=== PATIENT | male | born 1950 | race Caucasian/White ===

== ENCOUNTER 2019-10-18 08:25 | Emergency (ER) | payer OTHER ==
--- OUTSIDE RECORDS SUMMARY | 2019-10-18 08:28 | XMS REPORT ---
:1950 [facility] Address [address] [place] [address] [address] Care Team Providers Name Role Phone LINK, CHANA SWANSON Unavailable Unavailable Problems This patient has no known problems. Allergies, Adverse Reactions, Alerts This patient has no known allergies or adverse reactions. Medications This patient has no known medications. Results Test Description Test Time Test Comments Text Results Atomic Results Result Comments CT, ABDOMEN 2018-11-25 12:33:00 FINAL REPORT TECHNIQUE: CT of the abdomen and pelvis WITHOUT and WITH intravenous contrast and WITHOUT oral contrast. Dose modulation, iterative reconstruction, and/or weight-based adjustment of the mA/kV was utilized to reduce the radiation dose to as low as reasonably achievable. INDICATION: D18.03. History of a resected. Aortic hemangioma and needs follow-up to exclude recurrence COMPARISON: Outside facility MRI from 03/03/2018. FINDINGS: LOWER THORAX: Moderate basilar subsegmental atelectasis. HEPATOBILIARY: No focal hepatic lesions. Gallbladder is unremarkable. No biliary ductal dilatation.SPLEEN: No splenomegaly.PANCREAS: No focal masses or ductal dilatation. ADRENALS: A right adrenal nodule measures 1.1 cm and less than 10 Hounsfield is, consistent with an adenoma. There is a focal left adrenal calcification which may be due to prior trauma or hemorrhage.KIDNEYS/URETERS: No hydronephrosis, stones, or masses. A lateral pole renal cyst measures 1 cm. Exophytic left lower pole hyperdense renal lesion does not enhance and measures 1.9 cm. This is most consistent with a hemorrhagic cystPELVIC ORGANS/BLADDER: Unremarkable. PERITONEUM/RETROPERITONEUM: No free air or fluid. There are staple lines in the retroperitoneum at the site of the prior hemangioma with some tethering of adjacent small bowel, likely due to scar. There is an area of nodularity adjacent to segment of the liver which measures 1.8 cm on axial image 40. This is unchanged from the prior MRI. This does not appear to enhance and could be an old hematoma. LYMPH NODES: No lymphadenopathy.VESSELS: Common origin of the celiac axis and superior mesenteric artery. GI TRACT: There is mild wall thickening and fat infiltration within the wall of the distal ileum. Mild diverticulosis of the sigmoid colon. BONES AND SOFT TISSUES: Posterior fusion of L4-L5 with a disc spacer and transverse screws. Mild degenerative changes of the visualized spine. IMPRESSION: 1.No recurrent disease at the site of prior hemangioma resection. 2.A right adrenal adenoma measures 1.1 cm. No further imaging is necessary. 3.The mild wall thickening of the distal ileum with some fatty infiltration may be from prior or chronic inflammation. 4.The previously seen left lower pole renal lesion is most consistent with a hemorrhagic cyst. Signed: Osman Green MDReport Verified Date/Time: 11/25/2018 12:33:17 Reading Location: [address] Reading Room -CREATININE 2018-11-25 10:33:00 Test Item Value Reference Range Comments POC-CREATININE (BEAKER) (test 0.9 mg/dL 0.6-1.3 TESTED AT [facility] 7200 [id number]) [facility] [id number] POC-EGFR (BEAKER) (test 83 mL/min/1.73M2 mmow=5259) MIBG, TUMOR LOCAL, WB, SINGLE [id number] 15:01:00Para aortic mass, suspicious of parargangliomaFINAL REPORT PROCEDURE: MIBG SCAN - Tumor Localization CPT CODE: 60699, 13775 INDICATION: Para-aortic mass, suspicious for paraganglioma PROTOCOL: 10.9 mCi of I- 123 MIBG was injected intravenously. Images were obtained approximately 19 hours after tracerinjection and included whole body and spot images as well as tomographic images of the abdomen and pelvis. FINDINGS: Increased tracer activity involving left adrenal that correlates with the 2.9cm periaortic mass seen on MRI 03/03/2018. There is also increased tracer activity involving the right adrenal however this is less intense than the adjacent liver and may represent normal adrenal medulla. Tracer distribution is otherwise physiological. IMPRESSION: Abnormal MIBG scan. 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 Signed: Diamond Mccollum Verified Date/Time: 05/01/2018 15:01:04 Reading Location: [address] Reading Room
[2019-10-18] MEDS ORDERED: HYDROCODONE/CHLORPHEN 5 ML/OSYR ONE (09:58)
[2019-10-18] MEDS ORDERED: NA CHLORIDE 0.9% 1,000 ML ONE ×2 (09:59→11:30)
[2019-10-18 10:21] LABS: Absolute Lymphocytes (CBC) 0.5 K/uL (0.7-4.9); Basophils % 0.2 % (0-1.3); Hematocrit 47.8 % (39.6-49.0); Lymphocytes % 6.6 % (15.3-44.8); MPV 9.8 fL (7.6-11.3); RBC Red Blood Cell Count 5.04 M/uL (4.33-5.43)
[2019-10-18 10:30] LABS: Protime INR 1.11
[2019-10-18 10:47] LABS: ALT/SGPT 32 U/L (12-78); AST/SGOT 44 U/L (15-37); Albumin 3.5 g/dL (3.4-5.0); Alkaline Phosphatase 79 U/L (45-117); BUN Blood Urea Nitrogen 14 mg/dL (7-18); Bicarbonate 30 mmol/L (21-32); Bilirubin Direct 0.3 mg/dL (0-0.2); Bilirubin Total 1.4 mg/dL (0.2-1.0); Glucose Level 129 mg/dL (74-106); Magnesium 1.8 mg/dL (1.8-2.4); NT PRO-BNP 210 pg/mL (<125); Potassium 3.5 mmol/L (3.5-5.1); Protein, Total 7.3 g/dL (6.4-8.2); Sodium Level 136 mmol/L (136-145); Troponin (Emerg Dept Use Only) < 0.02 ng/mL (0.0-0.045)
--- NOTE | 2019-10-18 12:16 | EDPHYS ---
Physician Documentation [facility] Name: Harrison Arriaza Age: 69 yrs Sex: Male : 1950 Arrival Date: 10/18/2019 Time: 08:27 Bed 4 Private MD: Eliel Hi H ED Physician Dg Tenorio HPI: 10/17 09:48 This 69 yrs old Male presents to ER via Ambulatory with complaints of Cough, pm1 Congestion, Fever. 09:48 The patient or guardian reports cough, with no sputum. Onset: The symptoms/episode pm1 began/occurred 2 day(s) ago. Severity of symptoms: in the emergency department the symptoms are unchanged. Modifying factors: The symptoms are alleviated by nothing, the symptoms are aggravated by Cough is worse with laying down. Associated signs and symptoms: Pertinent positives: subjective fever with sweating last night. The patient has not recently seen a physician. Historical: - Allergies: 09:03 No Known Allergies; iw - Home Meds: 09:03 glimepiride 4 mg Oral tab 1 tab once daily [Active]; amlodipine 10 mg tab 1 tab once iw daily [Active]; pioglitazone 45 mg oral tab 1 tab once daily [Active]; lisinopril-hydrochlorothiazide 10-12.5 mg oral tab 1 tab once daily [Active]; Lorazepam Oral [Active]; - PMHx: 09:03 Diabetes - NIDDM; Hypertension; iw - PSHx: 09:03 malignent mole removal; neck sx; back; aorta; iw - Immunization history:: Adult Immunizations up to date. - Social history:: Smoking status: Patient/guardian denies using tobacco, the patient reports quitting approximately 50 years ago. ROS: 09:48 ENT: Negative for injury, pain, and discharge, Neck: Negative for injury, pain, and pm1 swelling, Cardiovascular: Negative for chest pain, palpitations, and edema. 09:48 Abdomen/GI: Negative for abdominal pain, nausea, vomiting, diarrhea, and constipation, Back: Negative for injury and pain, MS/Extremity: Negative for injury and deformity, Skin: Negative for injury, rash, and discoloration. 09:48 Neuro: Negative for headache, weakness, numbness, tingling, and seizure. 09:48 Constitutional: Positive for fever, decreased PO intake for the past two days. 09:48 Respiratory: Positive for cough, Negative for shortness of breath, sputum production, wheezing. 09:48 All other systems are negative. Exam: 09:48 Constitutional: This is a well developed, well nourished patient who is awake, alert, pm1 and in no acute distress. Head/Face: Normocephalic, atraumatic. Eyes: Pupils equal round and reactive to light, extra-ocular motions intact. Lids and lashes normal. Conjunctiva and sclera are non-icteric and not injected. Cornea within normal limits. Periorbital areas with no swelling, redness, or edema. ENT: Nares patent. No nasal discharge, no septal abnormalities noted. Tympanic membranes are normal and external auditory canals are clear. Oropharynx with no redness, swelling, or masses, exudates, or evidence of obstruction, uvula midline. Mucous membranes moist. Neck: Trachea midline, no thyromegaly or masses palpated, and no cervical lymphadenopathy. Supple, full range of motion without nuchal rigidity, or vertebral point tenderness. No Meningismus. Chest/axilla: Normal chest wall appearance and motion. Nontender with no deformity. No lesions are appreciated. Cardiovascular: Regular rate and rhythm with a normal S1 and S2. No gallops, murmurs, or rubs. Normal PMI, no JVD. No pulse deficits. Respiratory: Lungs have equal breath sounds bilaterally, clear to auscultation and percussion. No rales, rhonchi or wheezes noted. No increased work of breathing, no retractions or nasal flaring. Abdomen/GI: Soft, non-tender, with normal bowel sounds. No distension or tympany. No guarding or rebound. No evidence of tenderness throughout. Back: No spinal tenderness. No costovertebral tenderness. Full range of motion. Skin: Warm, dry with normal turgor. Normal color with no rashes, no lesions, and no evidence of cellulitis. MS/ Extremity: Pulses equal, no cyanosis. Neurovascular intact. Full, normal range of motion. 09:48 Neuro: Orientation: is normal, Motor: is normal, moves all fours, Gait: is steady, at a normal pace, without difficulty. Vital Signs: 08:58 BP 98 / 80; Pulse 86; Resp 18 S; Temp 98.7; Pulse Ox 93% on R/A; Weight 95.25 kg; iw Height 5 ft. 10 in. (177.80 cm); Pain 8/10; 10:08 BP 124 / 71; Pulse 75; Resp 18 S; Temp 99.2(O); Pulse Ox 96% on R/A; aa5 11:25 BP 102 / 64; Pulse 77; Resp 20 S; Temp 99.2(O); Pulse Ox 95% on R/A; aa5 13:00 BP 140 / 78; Pulse 72; Resp 18 S; Pulse Ox 96% on R/A; aa5 08:58 Body Mass Index 30.13 (95.25 kg, 177.80 cm) iw MDM: 09:29 Patient medically screened. [facility] 11:45 Data reviewed: vital signs. Data interpreted: Pulse oximetry: on room air is 95 %. pm1 Interpretation: normal. 11:45 Counseling: I had a detailed discussion with the patient and/or guardian regarding: the pm1 historical points, exam findings, and any diagnostic results supporting the discharge/admit diagnosis, lab results, radiology results, the need for outpatient follow up, to return to the emergency department if symptoms worsen or persist or if there are any questions or concerns that arise at home. 10/17 09:35 Order name: Flu; Complete Time: 11:03 pm1 10/17 09:35 Order name: Basic Metabolic Panel; Complete Time: 11:03 pm1 10/17 09:35 Order name: CBC with Diff; Complete Time: 11:03 pm1 10/17 09:35 Order name: LFT's; Complete Time: 11:03 pm1 10/17 09:35 Order name: Magnesium; Complete Time: 11:03 pm1 10/17 09:35 Order name: NT PRO-BNP; Complete Time: 11:03 pm1 10/17 09:04 Order name: Chest Pa And Lat (2 Views) XRAY; Complete Time: 12:22 iw 10/17 09:35 Order name: PT-INR; Complete Time: 11:03 pm1 10/17 09:35 Order name: Troponin (emerg Dept Use Only); Complete Time: 11:03 pm1 10/17 09:35 Order name: Strep; Complete Time: 11:03 pm1 10/17 10:40 Order name: Throat Culture EDMS 10/17 09:35 Order name: EKG; Complete Time: 09:36 pm1 10/17 09:35 Order name: Cardiac monitoring; Complete Time: 10: pm1 10/17 09:35 Order name: EKG - Nurse/Tech; Complete Time: 10: pm1 10/17 09:35 Order name: IV Saline Lock; Complete Time: 10: pm1 10/17 09:35 Order name: Labs collected and sent; Complete Time: 10: pm1 10/17 09:35 Order name: O2 Per Protocol; Complete Time: 10: pm10/17 09:35 Order name: O2 Sat Monitoring; Complete Time: 10: pm1 Administered Medications: 10:05 Drug: Tussionex Pennkinetic ER 5 ml Route: PO; aa5 11:29 Follow up: Response: No adverse reaction aa5 10:07 Drug: NS 0.9% 1000 ml Route: IV; Rate: 1000 ml; Site: left antecubital; aa5 11:25 Follow up: IV Status: Completed infusion; IV Intake: 1000ml aa5 11:29 Follow up: IV Status: Completed infusion; IV Intake: 1000ml aa5 11:29 Drug: NS 0.9% 1000 ml Route: IV; Rate: 1000 ml; Site: left antecubital; aa5 13:00 Follow up: IV Status: Completed infusion; IV Intake: 1000ml aa5 Disposition: 18:18 Co-signature as Attending Physician, Dg Tenorio MD I agree with the assessment and rahel plan of care. Disposition: 10/18/19 12:14 Discharged to Home. Impression: Influenza due to identified novel influenza A virus. - Condition is Stable. - Discharge Instructions: Influenza, Adult. - Prescriptions for Tamiflu 75 mg Oral Capsule - take 1 tablet by ORAL route every 12 hours for 5 days; 10 tablet. Guaifenesin AC 10- 100 mg/5 mL Oral Liquid - take 10 milliliter by ORAL route every 4 hours As needed; 240 milliliter. - Medication Reconciliation Form, Thank You Letter, Antibiotic Education, Prescription Opioid Use form. - Follow up: Emergency Department; When: As needed; Reason: Worsening of condition. Follow up: Private Physician; When: 2 - 3 days; Reason: Recheck today's complaints, Continuance of care, Re-evaluation by your physician. - Problem is new. - Symptoms have improved. Signatures: Dispatcher [employer] EDDg Vasquez MD MD cha Williams, Irene, RN RN Delphine Brown RN RN aa5 Tyler Marie NP TRACTOR OPERATOR BATTERY pm1 Corrections: (The following items were deleted from the chart) 13:17 12:14 10/18/2019 12:14 Discharged to Home. Impression: Influenza due to identified iw novel influenza A virus. Condition is Stable. Discharge Instructions: Influenza, Adult. Prescriptions for Tamiflu 75 mg Oral Capsule - take 1 tablet by ORAL route every 12 hours for 5 days; 10 tablet, Guaifenesin AC 10-100 mg/5 mL Oral Liquid - take 10 milliliter by ORAL route every 4 hours As needed; 240 milliliter. and Forms are Medication Reconciliation Form, Thank You Letter, Antibiotic Education, Prescription Opioid Use. Follow up: Emergency Department; When: As needed; Reason: Worsening of condition. Follow up: Private Physician; When: 2 - 3 days; Reason: Recheck today's complaints, Continuance of care, Re-evaluation by your physician. Problem is new. Symptoms have improved. pm1
--- NOTE | 2019-10-18 12:16 | RAD REPORT ---
EXAM DESCRIPTION: RAD - Chest Pa And Lat (2 Views) - 10/18/2019 9:42 am CLINICAL HISTORY: COPD;Malaise Chest pain. COMPARISON: No comparisons FINDINGS: The lungs are clear. The heart is normal in size. No displaced fractures. IMPRESSION: No acute or concerning finding suspected.
--- NOTE | 2019-10-18 13:18 | ER ---
Nurse's Notes [facility] Name: Harrison Arriaza Age: 69 yrs Sex: Male : 1950 Arrival Date: 10/18/2019 Time: 08:27 Bed 4 Private MD: Eliel Hi H Diagnosis: Influenza due to identified novel influenza A virus Presentation: 10/17 08:58 Chief complaint: Patient states: cough for over a week, had prescription called in for iw cough medicine from Dr. Hi, has gotten worse , productive cough, felt feverish last night. Coronavirus screen: The patient has NOT traveled to [place] in the past 14 days. Proceed with normal triage procedures. Ebola Screen: Patient negative for fever greater than or equal to 101.5 degrees Fahrenheit, and additional compatible Ebola Virus Disease symptoms Patient denies exposure to infectious person. Patient denies travel to an Ebola-affected area in the 21 days before illness onset. No symptoms or risks identified at this time. Initial Sepsis Screen: Does the patient meet any 2 criteria? No. Patient's initial sepsis screen is negative. Does the patient have a suspected source of infection? No. Patient's initial sepsis screen is negative. Risk Assessment: Do you want to hurt yourself or someone else? Patient reports no desire to harm self or others. 08:58 Method Of Arrival: Ambulatory iw 08:58 Acuity: SHARAN 3 iw Historical: - Allergies: 09:03 No Known Allergies; iw - Home Meds: 09:03 glimepiride 4 mg Oral tab 1 tab once daily [Active]; amlodipine 10 mg tab 1 tab once iw daily [Active]; pioglitazone 45 mg oral tab 1 tab once daily [Active]; lisinopril-hydrochlorothiazide 10-12.5 mg oral tab 1 tab once daily [Active]; Lorazepam Oral [Active]; - PMHx: 09:03 Diabetes - NIDDM; Hypertension; iw - PSHx: 09:03 malignent mole removal; neck sx; back; aorta; iw - Immunization history:: Adult Immunizations up to date. - Social history:: Smoking status: Patient/guardian denies using tobacco, the patient reports quitting approximately 50 years ago. Screenin:00 Abuse screen: Denies threats or abuse. Nutritional screening: No deficits noted. aa5 Tuberculosis screening: No symptoms or risk factors identified. Fall Risk None identified. Assessment: 09:05 General: Appears uncomfortable, Behavior is calm, cooperative. Pain: Complains of pain aa5 in whole body with cough Pain does not radiate. Pain currently is 5 out of 10 on a pain scale. Quality of pain is described as aching, Is intermittent. Neuro: Level of Consciousness is awake, alert, obeys commands, Oriented to person, place, time, situation. Cardiovascular: Heart tones S1 S2 present Rhythm is regular. Respiratory: Reports cough that is productive, Airway is patent Respiratory effort is even, unlabored, Respiratory pattern is regular, symmetrical, Breath sounds are clear bilaterally. GI: Abdomen is round Bowel sounds present X 4 quads. Abd is soft and non tender X 4 quads. Patient currently denies nausea, vomiting. : No signs and/or symptoms were reported regarding the genitourinary system. EENT: Reports nasal congestion nasal discharge. Derm: Skin is pink, warm \\T\\ dry. Musculoskeletal: Range of motion: intact in all extremities. 10:00 Reassessment: Patient is alert, oriented x 3, equal unlabored respirations, skin aa5 warm/dry/pink. 11:25 Reassessment: Patient is alert, oriented x 3, equal unlabored respirations, skin aa5 warm/dry/pink. Pt sitting up in bed, pt states "I feel like my cough gets worse lying down" . 13:15 Reassessment: Patient is alert, oriented x 3, equal unlabored respirations, skin aa5 warm/dry/pink. Vital Signs: 08:58 BP 98 / 80; Pulse 86; Resp 18 S; Temp 98.7; Pulse Ox 93% on R/A; Weight 95.25 kg; iw Height 5 ft. 10 in. (177.80 cm); Pain 8/10; 10:08 BP 124 / 71; Pulse 75; Resp 18 S; Temp 99.2(O); Pulse Ox 96% on R/A; aa5 11:25 BP 102 / 64; Pulse 77; Resp 20 S; Temp 99.2(O); Pulse Ox 95% on R/A; aa5 13:00 BP 140 / 78; Pulse 72; Resp 18 S; Pulse Ox 96% on R/A; aa5 08:58 Body Mass Index 30.13 (95.25 kg, 177.80 cm) ED Course: 08:27 Patient arrived in ED. rg4 08:27 Eliel Hi DO is Private Physician. rg4 09:01 Triage completed. iw 09:03 Arm band placed on. iw 09:05 Patient has correct armband on for positive identification. Placed in gown. Bed in low aa5 position. Call light in reach. Side rails up X2. 09:28 Tyler Marie, NEENA is PHCP. pm1 09:28 Dg Tenorio MD is Attending Physician. pm1 09:39 Chest Pa And Lat (2 Views) XRAY In Process Unspecified. EDMS 09:50 Delphine Almonte, JOSE G is Primary Nurse. aa5 10:13 Initial lab(s) drawn, by me, sent to lab. EKG done, by ED staff, reviewed by Tyler Marie NP Flu and/or RSV swab sent to lab. Strep swab sent to lab. Inserted saline lock: 20 gauge in left antecubital area, using aseptic technique. Blood collected. 13:15 No provider procedures requiring assistance completed. IV discontinued, intact, aa5 bleeding controlled, No redness/swelling at site. Pressure dressing applied. Administered Medications: 10:05 Drug: Tussionex Pennkinetic ER 5 ml Route: PO; aa5 11:29 Follow up: Response: No adverse reaction aa5 10:07 Drug: NS 0.9% 1000 ml Route: IV; Rate: 1000 ml; Site: left antecubital; aa5 11:25 Follow up: IV Status: Completed infusion; IV Intake: 1000ml aa5 11:29 Follow up: IV Status: Completed infusion; IV Intake: 1000ml aa5 11:29 Drug: NS 0.9% 1000 ml Route: IV; Rate: 1000 ml; Site: left antecubital; aa5 13:00 Follow up: IV Status: Completed infusion; IV Intake: 1000ml aa5 Intake: 11:25 IV: 1000ml; Total: 1000ml. aa5 11:29 IV: 1000ml; Total: 2000ml. aa5 13:00 IV: 1000ml; Total: 3000ml. aa5 Outcome: 12:14 Discharge ordered by . pm1 13:15 Discharged to home ambulatory, with significant other. aa5 13:15 Condition: stable 13:15 Discharge instructions given to patient, Instructed on discharge instructions, follow up and referral plans. medication usage, Demonstrated understanding of instructions, follow-up care, medications, Prescriptions given X 2. 13:17 Patient left the ED. iw Signatures: Dispatcher [employer] ADEEL Matthias Juan jb1 Selina Mccrary, JOSE G RN Delphine Brown RN RN aa5 Tyler Marie, ASSOCIATE MERCHANDISE PLANNER ASSOCIATE MERCHANDISE PLANNER pm1 Shana Steve rg4 Corrections: (The following items were deleted from the chart) 10:13 10:07 Inserted saline lock: 20 gauge in left antecubital area, using aseptic technique. jb1 Blood collected. Inserted by JUAN Martinez aa5 10:13 10:07 Initial lab(s) drawn, by ED staff, sent to lab. aa5 jb1 18:12 10:00 Patient has correct armband on for positive identification. Placed in gown. Bed aa5 in low position. Call light in reach. Side rails up X2. aa5
[2019-10-18 13:27] VITALS: TEMP 99.2
[2019-10-18 13:29] VITALS: BP 102/64; O2SAT 95
--- NOTE | 2019-10-19 15:36 | EKG ---
Test Date: 2019-10-18 Test Time: 09:50:03 Forex Trader: KENIA MEASUREMENT RESULTS: Intervals: Rate: 75 CA: 152 QRSD: 86 QT: 378 QTc: 422 [place]: P: 71 CA: 152 QRS: 81 T: 68 INTERPRETIVE STATEMENTS: Normal sinus rhythm Normal ECG No previous ECG available for comparison Electronically Signed On 10-19-19 15:35:12 TEA BLENDER by Derek Wheeler
== END 2019-10-18 13:17 | disposition home or self-care (01) ==
LOC: ER 08:25
DX: J09.X9 Influenza due to identified novel influenza A virus with other manifestations (principal); I10 Essential (primary) hypertension; E11.9 Type 2 diabetes mellitus without complications
CPT/HCPCS: 96361; 93005; 87070; 85025; 80048; 36415; 83735; 85610; 80076; 87081; 84484; 83880; 87804 ×2; 71046; 96360; 99284; J7030 ×2

== ENCOUNTER 2020-08-26 13:24 | Emergency (ER) | payer OTHER ==
--- OUTSIDE RECORDS SUMMARY | 2020-08-26 13:26 | XMS REPORT | Continuity of Care Document ---
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 Family History Family Member Diagnosis Comments Start Date Stop Date Source Natural brother No Known Problems Jerome Lock Natural father Cirrhosis [facility] Natural mother Cancer [facility] Natural sister No Known Problems Edenilson Lock Social History Social Habit Start Date Stop Date Quantity Comments Source History of tobacco Current smoker Jerome carter use [facility] Sex Assigned At [place] [facility] Cigarettes smoked 2018-05-30 2018-05-30 [place] current (pack per 00:00:00 00:00:00 Method[facility] ) - Reported Cigarette 2018-05-30 2018-05-30 [place] pack-years 00:00:00 00:00:00 [facility] Tobacco use and 2018-05-30 2018-05-30 Current user [facility] exposure 00:00:00 00:00:00 [facility] Alcohol intake 2018-05-30 2018-05-30 Current drinker Jesus on 00:00:00 00:00:00 of alcohol [facility] (finding) Alcohol Comment 2016-02-03 2016-02-03 occasional [facility] 00:00:00 00:00:00 [facility] Smoking Status Start Date Stop Date Source Former smoker 2018-05-30 00:00:00 2018-05-30 00:00:00 Long [facility] Medications Ordered Filled Start Stop Current Ordering Indication Dosage Frequency Signature Comments Components Source Medication Medication Date Date Medication? Clinician (SIG) Name Name LORAZepam 2017-08 Yes 2mg QD Take 2 mg Edenilson ston (ATIVAN) 2 0-11 by mouth Metho di MG tablet 14:53: nightly. st 18 lisinopril- 2017-08 Yes 1{tbl} QD Take 1 [place] hydrochloro 0-11 tablet by Met hodi thiazide 14:53: mouth st (PRINZIDE,Z 18 every ESTORETIC) morning. 20-25 mg per tablet glimepiride 2017-08 Yes 4mg Q.5D Take 4 mg [place] (AMARYL) 4 0-11 by mouth 2 Met hodi MG tablet 14:53: (two) st 18 times a day. amLODIPine 2017-08 Yes 10mg QD Take 10 mg [place] (NORVASC) 0-11 by mouth Method i 10 MG 14:53: every st tablet 18 morning. Take the am of surgery pioglitazon 2017-08 Yes 45mg QD Take 45 mg [facility] e (ACTOS) 0-11 by mouth Method i 45 MG 14:53: daily. st tablet 18 omega 2017-08 Yes Take by Long 3-dha-epa-f 0-11 mouth. Method i darian oil 14:53: st (FISH OIL) 18 1,000 mg (120 mg-180 mg) capsule traZODone 2017-08 Yes 50mg QD Take 50 mg [place] (DESYREL) 0-11 by mouth Method i 50 MG 14:53: nightly. st tablet 18 multivitami 2017-08 Yes 1{tbl} QD Take 1 [place] n with 0-11 tablet by Methodi minerals 14:53: mouth st tablet 18 daily. Immunizations Ordered Immunization Filled Immunization Date Status Commen ts Source Name Name Pneumococcal 2018-05-29 Completed Long Conjugate 13-Valent 00:00:00 Meth[facility] dist Procedures This patient has no known procedures. Plan of Care Planned Activity Planned Date Details Comments Source Future Scheduled 2020-04-19 INFLUENZA VACCINE (#1) [facility] Test 00:00:00 [code = INFLUENZA Medical Ce nter VACCINE (#1)] Future Scheduled 2020-03-19 INFLUENZA VACCINE [place] [facility] Test 00:00:00 [code = INFLUENZA VACCINE] Future Scheduled 2019-05-29 65+ PNEUMOCOCCAL [facility] Test 00:00:00 VACCINE (2 of 2 - PPSV23) [code = 65+ PNEUMOCOCCAL VACCINE (2 of 2 - PPSV23)] Future Scheduled 2013-12-[address] [facility] - Test 00:00:00 WELLNESS (YEAR 2 or [facility] FIRST YEAR if no IPPE) [code = MEDICARE ANNUAL WELLNESS (YEAR 2 or FIRST YEAR if no IPPE)] Future Scheduled 2013-01-14 PNEUMOCOCCAL 65+ YRS [facility] - Test 00:00:00 (2 of 2 - PPSV23) Medical Ce nter [code = PNEUMOCOCCAL 65+ YRS (2 of 2 - PPSV23)] Future Scheduled 1998-01-14 COLONOSCOPY SCREENING [place] [facility] Test 00:00:00 [code = COLONOSCOPY SCREENING] Future Scheduled 1998-01-14 SHINGLES VACCINES (#1) [place] [facility] Test 00:00:00 [code = SHINGLES VACCINES (#1)] Future Scheduled 1964 COVID-19 VACCINE (#1) [place] [facility] Test 00:00:00 [code = COVID-19 VACCINE (#1)] Future Scheduled [address] [facility] - Test 00:00:00 malignant neoplasm of [facility] colon (procedure) [code = 946174129] Encounters Start End Encounter Admission Attending Care Care Encounter Source Date/Time Date/Time Type Type Clinicians Facility Department ID 2019-12-21 2019-12-21 Office Link, [facility] [id number] 23 14:26:35 15:45:13 Visit Oscar E AMBULATOR [id number] Y [id number] 300 Results Test Description Test Time Test Comments Results Result Sour e Comments CT, ABDOMEN 2018-11-25 FINAL REPORT PATIENT 12:33:00 ID: [id number] TECHNIQUE: CT of the abdomen and pelvis [...] may be due to prior trauma or hemorrhage.KIDNEYS/URE TERS: No hydronephrosis, stones, or masses. A lateral pole renal cyst measures 1 cm. Exophytic left lower pole hyperdense renal lesion does not enhance and measures 1.9 cm. This is most consistent with a hemorrhagic cystPELVIC ORGANS/BLADDER: Unremarkable. PERITONEUM/RETROPERITO NEUM: No free air or fluid. There are [...] be an old hematoma. LYMPH NODES: No lymphadenopathy.VESSEL S: Common origin of the celiac axis and [...] most consistent with a hemorrhagic cyst. Signed: Horn, Osman MDRmindiort Verified Date/Time: 11/25/2018 12:33:17 Reading Location: [facility] C013T [facility] Reading Room -CREATININE 2018-11-25 10:33:00 Test Item Value Reference Range Interpretation Comme nts POC-CREATININE (BEAKER) (test 0.9 mg/dL 0.6-1.3 TESTED AT [facility] 7200 code = 1859) DUNNELL BLDG A [facility] [id number] POC-EGFR (BEAKER) (test code = 83 mL/min/1.73M2 1860) MIBG, TUMOR LOCAL, WB, SINGLE [id number] 15:01:00Para aortic mass, suspicious of parargangliomaFINAL REPORT PROCEDURE: MIBG SCAN - Tumor Localization CPT CODE: 41676, 76771 INDICATION: Para-aortic mass, suspicious for paraganglioma PROTOCOL: 10.9 mCi of I-123 MIBG was injected intravenously. Images were obtained [...] normal adrenal medulla versus additionalneoplasm. Signed: Diamond Snyder MDReport Verified Date/Time: 05/01/2018 15:01:04 Reading Location: [address] [facility] Reading Room
--- OUTSIDE RECORDS SUMMARY | 2020-08-26 13:26 | XMS REPORT | Clinical Summary ---
:1950 Author Organization [facility] Address [address] [place] [address] Care Team Providers Name Role Phone Pcp, Primary Care Provider Unavailable Allergies No Known Allergies Medications Not on file Active Problems Not on file Social History Tobacco Use Types Packs/Day Years Used Date Never Assessed Sex Assigned at Date Recorded Not on file Last Filed Vital Signs Not on file Plan of Treatment Health Maintenance Due Date Last Done Comments COLON CANCER SCREENING COLONOSCOPY 1950 PNEUMOCOCCAL 65+ YRS (2 of 2 - PPSV23) 01/14/2013 8 MEDICARE ANNUAL WELLNESS (YEAR 2 or FIRST YEAR if no 12/18/2013 IPPE) INFLUENZA VACCINE (#1) 2020 Results Not on fileafter 08/26/2019 Insurance Payer Benefit Plan / Subscriber ID Effective Dates Phone Addre ss Type Group MEDICARE MEDICARE A B [id number] 2012-Present Medicare MCR GENERIC MEDICARE [id number] 2017-Present Medigap SUPPLEMENT/MACK SUPPLEMENT VIDUAL
--- OUTSIDE RECORDS SUMMARY | 2020-08-26 13:26 | XMS REPORT | Clinical Summary ---
:1950 Author Organization [facility] Address [address] [place] [address] Care Team Providers Name Role Phone Eleil Hi DO Primary Care Provider Allergies No Known Active Allergies Medications Medication Sig Dispensed Refills Start Date End Date Status LORAZepam (ATIVAN) 2 MG Take 2 mg by 0 Active tablet mouth nightly. lisinopril-hydrochlorot Take 1 tablet by 0 Active hiazide mouth every (PRINZIDE,ZESTORETIC) morning. 20-25 mg per tablet glimepiride (AMARYL) 4 Take 4 mg by 0 Active MG tablet mouth 2 (two) times a day. amLODIPine (NORVASC) 10 Take 10 mg by 0 Active MG tablet mouth every morning. Take the am of surgery pioglitazone (ACTOS) 45 Take 45 mg by 0 Active MG tablet mouth daily. omega 0-zyj-hye-fish Take by mouth. 0 Active oil (FISH OIL) 1,000 mg (120 mg-180 mg) capsule traZODone (DESYREL) 50 Take 50 mg by 0 Active MG tablet mouth nightly. multivitamin with Take 1 tablet by 0 Active minerals tablet mouth daily. 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 S/P lumbar fusion 10/16/2016 S/P lumbar laminectomy 02/09/2016 Immunizations Name Administration Dates Next Due Pneumococcal Conjugate 13-Valent 05/29/2018 Surgical History Surgery Date Site/Laterality Comments BACK SURGERY bone spur KIDNEY STONE SURGERY VASECTOMY MI 02/09/2016 Spine Lumbar/N/A Procedure: LUMB AR LAMINOTOMY LAMINEC/FACETECT/FORAMIN,BETSY L4-L 5; Surgeon: Jonathan RUIZ 1 ASA Saab MD; Loc ation: [facility]; Servic e: Neurosurgery FUSION, SPINE, LUMBAR, XLIF 10/16/2016 Spine Lumbar/N/A Pro cedure: EXTREME LATERAL INTERBODY FUSION W/ ALLOGRAFT L4-L5; Surgeon: Jonathan Saab MD; Loc ation: [facility]; Servic e: Neurosurgery; L aterality: N/A; Medical devices from this surgery are in t he Implants section. FUSION, SPINE, LUMBAR, 10/16/2016 Spine Lumbar/N/A Procedur e: . REDO LUMBAR POSTERIOR APPROACH LAMINOTOMY LE FT L4-L5. POSTERIOR LUMBAR FUSION W/ ALLOGRAFT AND AU TOGRAFT L4-L5. ; Surgeon: Kaci Saab MD; Location: [facility] OR; Service: Neurosu rgery; Laterality: N/A; Medical devices from this surgery are in t he Implants section. PROSTATECTOMY, 05/28/2018 N/A Procedure: ROBOT IC ASSISTED LAPAROSCOPIC, LAPAROSCOPIC EXC ISION OF PARA ROBOT-ASSISTED AORTIC MASS; Garcia rgeon: Oscar Oneill MD; Lo cation: [facility]; Servic e: Urology; Laterality: N/A; Medical devices from this surgery are in t he Implants section. Medical History Medical History Date Comments Hypertension Insomnia Diabetes mellitus (HCC) type 2 Blood in the stool 2014 instructed pt to inf orm pcp o fblood in the stool which star teodora last year Hernia, umbilical Anesthesia NHAP/NFHAP; denies c hest pain, SOB, or Dizziness Exercise involving golf and walking golf 3 times weekly and yard work; can climb course 2 flights of stairs w/o distress Kidney cysts Type 2 diabetes mellitus (HCC) Family History Medical History Relation Name Comments No Known Problems Brother Cirrhosis Father Cancer Mother No Known Problems Sister Relation Name Status Comments Brother Alive Father Mother cancer -lymph no de Sister Alive Social History Tobacco Use Types Packs/Day Years Used Date Former Smoker Cigarettes 0.5 10 Quit: 1975 Smokeless Tobacco: Current User Chew Alcohol Use Drinks/Week oz/Week Comments Yes 1 Standard drinks or equivalent 1.0 occasional Sex Assigned at Date Recorded Not on file Last Filed Vital Signs Not on file Plan of Treatment Health Maintenance Due Date Last Done Comments COVID-19 VACCINE (#1) 1966 COLONOSCOPY SCREENING 01/14/1998 SHINGLES VACCINES (#1) 01/14/1998 65+ PNEUMOCOCCAL VACCINE (2 of 2 - PPSV23) 05/29/201905/29 INFLUENZA VACCINE 03/19/2020 Implants Implanted Type Area Livestock Farmer Device Shelf Model / Identifier Expiration Serial / Lot Date Matrix Hmstc Floseal 10ml W/ Humn F2 - [id number] Human N/A: B AXTER 01/16/2018 [id number] / Implanted: Qty: 1 on 10/16/2016 by Jonathan Saab MD at [facility] Tissue N/A BIOSCIENCE / Implants [id number] Matrix Hmstc Floseal 10ml W/ Humn F2 - [id number] Human N/A: B AXTER 01/16/2018 [id number] / Implanted: Qty: 1 on 10/16/2016 by Jonathan Saab MD at [facility] Tissue N/A BIOSCIENCE / Implants [id number] Bone Matriz Osteocel Pro Small - [id number] - [id number] Human N/ A: NUVASIVE 02/12/2021 [id number] / Implanted: Qty: 1 on 10/16/2016 by Jonathan Saab MD at [facility] Tissue N/A [id number] / Implants [id number] Bone Matriz Osteocel Pro Small - [id number] - [id number] Human N/ A: NUVASIVE 02/28/2021 [id number] / Implanted: Qty: 1 on 10/16/2016 by Jonathan Saab MD at [facility] Tissue N/A [id number] / Implants [id number] Bone Matriz Osteocel Pro Medium - [id number] - [id number] Human N /A: NUVASIVE 05/08/2021 [id number] / Implanted: Qty: 1 on 10/16/2016 by Jonathan Saab MD at [facility] Tissue N/A [id number] / Implants [id number], Coroent Xlw 15 Degree - [id number] IPM IMPLANT N/A: NU VASIVE SPINE 09/19/2019 [id number] / Implanted: 10/16/2016 at [facility] (Quantity not on file) DEVICES N/A / [id number] Nit K-Wire Precept - [id number] IPM IMPLANT N/A: NUVASIVE SPINE 09/19/2019 [id number] / Implanted: 10/16/2016 at [facility] (Quantity not on file) DEVICES N/A / [id number] Relive Mas Mod Screw Shank - [id number] IPM IMPLANT N/A: NUVASIV E SPINE 09/19/2019 [id number] / Implanted: 10/16/2016 at [facility] (Quantity not on file) DEVICES N/A / [id number] Reline Mas Mod Screw Shank, 6.5 X 50 2c - [id number] IPM IMPLANT N/A: NUVASIVE SPINE 09/19/2019 [id number] / Implanted: 10/16/2016 at [facility] (Quantity not on file) DEVICES N/A / [id number] Screw Pdc Ti 6.5x55mm Melecio Polaxial Dbr3 - [id number] IPM IMPLANT N/A: NUVASIVE SPINE [id number] / Implanted: 10/16/2016 at [facility] (Quantity not on file) DEVICES N/A / Screw Pdc Ti 6.5x50mm Melecio Polaxial Dbr3 - [id number] IPM IMPLANT N/A: NUVASIVE SPINE [id number] / Implanted: 10/16/2016 at [facility] (Quantity not on file) DEVICES N/A / Surgical Access Module - [id number] IPM N/A: NUVASIVE SPINE 09/19/2019 [id number] / Implanted: Qty: 1 on 10/16/2016 by Jonathan Saab MD at [facility] SUPPLIES N/A / PATIENT [id number] NON-BILLABL E Nvm5 Tmap Activator & Electrode Kit - [id number] IPM N/A: NUVASIVE SPINE 09/19/2019 / Implanted: Qty: 1 on 10/16/2016 by Jonathan Saab MD at [facility] SUPPLIES N/A / PATIENT NA NON-BILLABL E Reline Consol Disposable - [id number] IPM N/A: NUVASIVE SPIN E 09/19/2019 [id number] / Implanted: 10/16/2016 at [facility] (Quantity not on file) SUPPLIES N/A / PATIENT NA NON-BILLABL E Andreia Tlif Hoop Mas Strl - [id number] Spinal N/A: NUVASIVE [id number] / Implanted: 10/16/2016 at [facility] (Quantity not on file) Implants N/A / Screw Spinal Lkng Posted Pedcl Sys For 6.25mm Jerry Spherx - [id number] Spinal N/A: NUVASIVE [id number] / Implanted: 10/16/2016 at [facility] (Quantity not on file) Implants N/A / Jerry Spinal Scr Tulip 6.25mm Spherx Pps - [id number] Spinal N/A: NUVASIVE [id number] / Implanted: Qty: 2 on 10/16/2016 by Jonathan Saab MD at [facility] Implants N/A / Jerry Spinal P-Bnt Dual Ball 27.5mm Spherx Dbr - [id number] Spinal N /A: NUVASIVE 09/19/2019 [id number] / Implanted: Qty: 1 on 10/16/2016 by Jonathan Saab MD at [facility] Implants N/A / [id number] Jerry Spinal P-Bnt Dual Ball 25mm Spherx Dbr - [id number] Spinal N/A : NUVASIVE 09/19/2019 [id number] / Implanted: Qty: 1 on 10/16/2016 by Jonathan Saab MD at [facility] Implants N/A / [id number] Kit Dil M5 Xlif - [id number] Spinal N/A: NUVASIVE [id number] / Implanted: 10/16/2016 at [facility] (Quantity not on file) Implants N/A / Clip Ligtng Hem-O-Greta Endoscpc Aplr Ply Lg - [id number] Surgic al N/A: WECK CLOSURE 01/20/2023 [id number] / Implanted: Qty: 4 on 05/28/2018 by Oscar Oneill M D at [facility] Implants; N/A SYSTEMS / Expanders; Extenders; Surgical Wires Kit Selnt Fibrin Humn Hmsts Surgy 5ml Evicel - [id number] Surgic al N/A: ETHICON US-EH 01/17/2019 [id number] / Implanted: Qty: 1 on 05/28/2018 by Oscar Oneill M D at [facility] Implants; N/A / Expanders; Extenders; Surgical Wires Results Not on fileafter 08/26/2019 Insurance Payer Benefit Plan / Subscriber ID Effective Phone Address T e Group Dates MEDICARE MEDICARE PART [id number] 2012-Connie Perales X Medicare A AND B nt STATE FARM INS STATE FARM INS [id number] 2014-Luis Commercial nt Advance Directives For more information, please contact: [phone] Type Date Recorded 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
[2020-08-26] MEDS ORDERED: HYDROCODONE/APAP 10/325 TAB ONE (14:42)
--- NOTE | 2020-08-26 15:11 | RAD REPORT ---
EXAM DESCRIPTION: CT - Spine Lumbar Wo Con - 08/26/2020 2:32 pm CLINICAL HISTORY: PAIN COMPARISON: CT lumbar spine January 2016, CT abdomen and pelvis January 2018 TECHNIQUE: Thin section axial imaging of the lumbar spine was performed. Sagittal and coronal recon struction images were generated and reviewed. All CT scans are performed using dose optimization technique as appropriate and may include automated exposure control or mA/KV adjustment according to patient size. FINDINGS: Lumbar bodies are normal in height and normal in alignment. No lytic, sclerotic or expansi le bony destructive process. Since the 2015 study pedicle screws and rods have been placed at the L4-5 level with graft material i n the disc space. This is well healed. No pedicle screw abnormality seen. Assessment of the disc leve l is difficult due to the spray artifact. No central spinal stenosis or significant foraminal encroac hment seen. No disc herniation seen. L5-S1 midline and left-sided disc bulge contacts but does not displace the S 1 nerve roots. Patient has advanced facet joint degenerative change at L5-S1. No paraspinal mass. No suspicious soft tissue finding. Central canal detail is inherently limited. IMPRESSION: No fracture or acute lumbar spine finding. L4-5 fusion changes at the disc level appear well healed. No disc herniation or central spinal stenosis seen. L5-S1 disc bulge contacts but does not displace t he S1 nerve roots.
--- NOTE | 2020-08-26 15:16 | RAD REPORT ---
EXAM DESCRIPTION: RAD - Ankle Right 3 View - 08/26/2020 2:46 pm CLINICAL HISTORY: PAIN, ankle pain COMPARISON: No comparisons FINDINGS: No fracture, dislocation or periosteal reaction. No joint effusion seen. Patient has very minimal spurring at the plantar and Achilles tendon attachments. Accessory ossicles are present along the inferior margin medial malleolus. Soft tissue swelling is present. Arterial tree calcifications seen. IMPRESSION: Mild soft tissue swelling with no acute bone abnormality.
--- NOTE | 2020-08-26 15:30 | ER ---
Nurse's Notes [facility] Name: Harrison Arriaza Age: 70 yrs Sex: Male : 1950 Arrival Date: 08/26/2020 Time: 13:26 Bed 23 Private MD: Eliel Hi H Diagnosis: Low back pain;Sprain of ankle;Abrasion of knee Presentation: 08/26 13:59 Chief complaint: Patient states: [place] [employer] [place]. ss C/o pain to R ankle, L knee and L lower back pain. Coronavirus screen: Client denies travel out of the [place] in the last 14 days. Ebola Screen: Patient denies exposure to infectious person. Patient denies travel to an Ebola-affected area in the 21 days before illness onset. Initial Sepsis Screen: Does the patient meet any 2 criteria? No. Patient's initial sepsis screen is negative. Does the patient have a suspected source of infection? No. Patient's initial sepsis screen is negative. Risk Assessment: Do you want to hurt yourself or someone else? Patient reports no desire to harm self or others. Onset of symptoms was August 26, 2020. 13:59 Method Of Arrival: Ambulatory ss 13:59 Acuity: SHARAN 3 ss Historical: - Allergies: 14:03 No Known Allergies; ss - PMHx: 14:03 Diabetes - NIDDM; Hypertension; ss - PSHx: 14:03 malignent mole removal; neck sx; aorta; back; ss - Immunization history:: Adult Immunizations up to date. - Social history:: Smoking status: Patient denies any tobacco usage or history of. Screenin:37 Abuse screen: Denies threats or abuse. Denies injuries from another. Nutritional zb screening: No deficits noted. Tuberculosis screening: No symptoms or risk factors identified. Fall Risk None identified. Assessment: 14:32 General: Appears in no apparent distress. uncomfortable, Behavior is calm, cooperative, zb appropriate for age. Pain: Complains of pain in left leg and left knee and right leg and anterior aspect of right ankle and left low back and lumbar area Pain does not radiate. Pain currently is 10 out of 10 on a pain scale. Pain began 2 hours ago. Is continuous, Alleviated by nothing. Neuro: Level of Consciousness is awake, alert, obeys commands, Oriented to person, place, time, situation. Cardiovascular: Capillary refill < 3 seconds in bilateral fingers Patient's skin is warm and dry. Respiratory: Reports shortness of breath at rest Airway is patent Respiratory effort is even, unlabored, Respiratory pattern is regular, symmetrical, Breath sounds are clear bilaterally. Crepitus is noted on left lateral posterior chest. GI: Abdomen is round non-distended. : No signs and/or symptoms were reported regarding the genitourinary system. EENT: No signs and/or symptoms were reported regarding the EENT system. Derm: abrasions on left knee area. Musculoskeletal: Circulation, motion, and sensation intact. Capillary refill < 3 seconds, in bilateral fingers. Range of motion: limited in right ankle Swelling present in right ankle. 15:30 Reassessment: Patient appears in no apparent distress at this time. Patient and/or zb family updated on plan of care and expected duration. Pain level reassessed. Patient is alert, oriented x 3, equal unlabored respirations, skin warm/dry/pink. no c/o at this time. pt given pain medication waiting medication to kick in. 16:00 Reassessment: pt states that pain medication has helped. 0/10 at the moment. given zb ankle air cast Patient denies pain at this time. Patient states symptoms have improved. Vital Signs: 14:03 BP 142 / 69; Pulse 80; Resp 18; Temp 97.8(TE); Pulse Ox 99% on R/A; Weight 95.25 kg; ss Height 5 ft. 10 in. (177.80 cm); Pain 10/10; 14:03 Body Mass Index 30.13 (95.25 kg, 177.80 cm) ED Course: 13:26 Patient arrived in ED. ag5 13:27 Eliel Hi DO is Private Physician. ag5 14:00 Triage completed. ss 14:03 Arm band placed on right wrist. ss 14:13 Opal Mcdonough FNP-C is PHCP. kb 14:13 Jose A Page MD is Attending Physician. kb 14:19 Fatmata Wagner, JOSE G is Primary Nurse. zb 14:32 CT Lumbar Spine Wo Con In Process Unspecified. EDMS 14:47 Ankle Right 3 View XRAY In Process Unspecified. EDMS 16:12 Patient has correct armband on for positive identification. health insurance specialist on. Pulse zb ox on. 16:12 No provider procedures requiring assistance completed. Patient did not have IV access zb during this emergency room visit. Administered Medications: 14:25 CANCELLED (Physician Discretion): [place] (7.5 mg-325 mg) 1 tabs PO once; RASS on ADMIN: kb Combtv4, Very Agttd3, Agttd2, Rstlss1, AlertClm0, Drwsy-1, Lt Sdtn-2, Mod Sdtn-3, Dp Sdtn-4, UnArsble-5 14:28 Drug: [place] 10 mg-325 mg 1 tabs {Note: RASS 0.} Route: PO; zb 16:00 Follow up: Response: No adverse reaction; Pain is decreased; RASS: Alert and Calm (0) zb 15:41 Drug: Lidocaine Solution (4%) 1 patches Route: Topical; Site: affected area; zb 16:00 Follow up: Response: No adverse reaction zb Outcome: 15:29 Discharge ordered by . kb 16:13 Discharged to home ambulatory. zb 16:13 Condition: stable 16:13 Discharge instructions given to patient, Instructed on discharge instructions, follow up and referral plans. medication usage, Demonstrated understanding of instructions, follow-up care, medications, Prescriptions given X 2. 16:13 Patient left the ED. zb Signatures: Dispatcher [employer] EDAZ Opal Mcdonough, SHANTI BAKERP-Grace Jacques RN RN Chucky Patel 5 Fatmata Wagner RN RN zb Corrections: (The following items were deleted from the chart) 14:29 14:28 [place] 10 mg-325 mg 1 tabs PO zb zb
--- NOTE | 2020-08-26 15:31 | EDPHYS ---
Physician Documentation [facility] Name: Harrison Arriaza Age: 70 yrs Sex: Male : 1950 Arrival Date: 08/26/2020 Time: 13:26 Bed 23 Private MD: Eliel Hi H ED Physician Jose A Page HPI: 08/26 14:25 This 70 yrs old Male presents to ER via Ambulatory with complaints of Fall kb Injury. 14:25 Associated injuries: The patient sustained injury to the low back, pain, pain with kb movement, tenderness, left knee, abrasion, anterior aspect of right ankle, decreased range of motion, painful injury, swelling. Severity of symptoms: At their worst the symptoms were moderate, in the emergency department the symptoms are unchanged. The patient has not experienced similar symptoms in the past. The patient has not recently seen a physician. 14:26 Details of fall: The patient fell from an upright position, while walking. Onset: The kb symptoms/episode began/occurred today, at 09:30. [place] loose one and fell. . Historical: - Allergies: 14:03 No Known Allergies; ss - PMHx: 14:03 Diabetes - NIDDM; Hypertension; ss - PSHx: 14:03 malignent mole removal; neck sx; aorta; back; ss - Immunization history:: Adult Immunizations up to date. - Social history:: Smoking status: Patient denies any tobacco usage or history of. ROS: 14:22 Constitutional: Negative for fever, chills, and weight loss, Cardiovascular: Negative kb for chest pain, palpitations, and edema, Respiratory: Negative for shortness of breath, cough, wheezing, and pleuritic chest pain, Abdomen/GI: Negative for abdominal pain, nausea, vomiting, diarrhea, and constipation, Neuro: Negative for headache, weakness, numbness, tingling, and seizure. 14:22 Back: Positive for pain at rest, pain with movement, of the lumbar area and left low back. 14:22 MS/extremity: Positive for decreased range of motion, pain, swelling, tenderness, of the anterior aspect of right ankle. 14:22 Skin: Positive for abrasion(s), of the left knee. Exam: 14:23 Constitutional: This is a well developed, well nourished patient who is awake, alert, kb and in no acute distress. Head/Face: Normocephalic, atraumatic. Chest/axilla: Normal chest wall appearance and motion. Nontender with no deformity. No lesions are appreciated. Cardiovascular: Regular rate and rhythm with a normal S1 and S2. No gallops, murmurs, or rubs. Normal PMI, no JVD. No pulse deficits. Respiratory: Lungs have equal breath sounds bilaterally, clear to auscultation and percussion. No rales, rhonchi or wheezes noted. No increased work of breathing, no retractions or nasal flaring. Abdomen/GI: Soft, non-tender, with normal bowel sounds. No distension or tympany. No guarding or rebound. No evidence of tenderness throughout. Neuro: Awake and alert, GCS 15, oriented to person, place, time, and situation. Cranial nerves II-XII grossly intact. Motor strength 5/5 in all extremities. Sensory grossly intact. Cerebellar exam normal. Normal gait. 14:23 Back: pain, that is moderate, of the lumbar area and left low back, ROM is painful, normal spinal alignment noted, CVA tenderness, is absent, vertebral tenderness, is appreciated at L3, L4 and L5. 14:23 Musculoskeletal/extremity: Extremities: grossly normal except: noted in the anterior aspect of right ankle: decreased ROM, pain, swelling, tenderness, ROM: limited active range of motion due to pain, in the anterior aspect of right ankle, Circulation is intact in all extremities. Sensation intact. Weight bearing: can bear weight with assistance only. 14:23 Skin: injury, abrasion(s), small abrasion noted, of the left knee. Vital Signs: 14:03 BP 142 / 69; Pulse 80; Resp 18; Temp 97.8(TE); Pulse Ox 99% on R/A; Weight 95.25 kg; ss Height 5 ft. 10 in. (177.80 cm); Pain 10/10; 14:03 Body Mass Index 30.13 (95.25 kg, 177.80 cm) ss MDM: 14:13 Patient medically screened. kb 14:22 Data reviewed: vital signs, nurses notes. Data interpreted: Pulse oximetry: on room air kb is 99 %. Interpretation: normal. 15:25 Counseling: I had a detailed discussion with the patient and/or guardian regarding: the kb historical points, exam findings, and any diagnostic results supporting the discharge/admit diagnosis, radiology results, the need for outpatient follow up, a family practitioner, to return to the emergency department if symptoms worsen or persist or if there are any questions or concerns that arise at home. 08/26 14:19 Order name: Ankle Right 3 View XRAY; Complete Time: 15:23 kb 08/26 14:19 Order name: CT Lumbar Spine Wo Con; Complete Time: 15:11 kb 08/26 15:30 Order name: Aircast Ankle Splint; Complete Time: 16:12 kb Administered Medications: 14:25 CANCELLED (Physician Discretion): [place]op[place] (7.5 mg-325 mg) 1 tabs PO once; RASS on ADMIN: kb Combtv4, Very Agttd3, Agttd2, Rstlss1, AlertClm0, Drwsy-1, Lt Sdtn-2, Mod Sdtn-3, Dp Sdtn-4, UnArsble-5 14:28 Drug: [place]op[place] 10 mg-325 mg 1 tabs {Note: RASS 0.} Route: PO; zb 16:00 Follow up: Response: No adverse reaction; Pain is decreased; RASS: Alert and Calm (0) zb 15:41 Drug: Lidocaine Solution (4%) 1 patches Route: Topical; Site: affected area; zb 16:00 Follow up: Response: No adverse reaction zb Disposition: 18:31 Co-signature as Attending Physician, Jose A Page MD. rn Disposition: 08/26/20 15:29 Discharged to Home. Impression: Low back pain, Sprain of ankle, Abrasion of knee. - Condition is Stable. - Discharge Instructions: Ankle Sprain, [id number], Back Pain, Adult, [id number]. - Prescriptions for Cyclobenzaprine 10 mg Oral Tablet - take 1 tablet by ORAL route every 8 hours As needed; 21 tablet. Diclofenac Sodium 75 mg Oral Tablet, Delayed Release (E.C.) - take 1 tablet by ORAL route 2 times per day As needed; 30 tablet. - Medication Reconciliation Form, Thank You Letter, Antibiotic Education, Prescription Opioid Use form. - Follow up: Emergency Department; When: As needed; Reason: Worsening of condition. Follow up: Private Physician; When: 2 - 3 days; Reason: Recheck today's complaints, Continuance of care, Re-evaluation by your physician. Signatures: Dispatcher [employer] Opal Gomes, MATEO-Pamela GALINDO-Jose A Pan MD MD rn Smirch, Shelby, RN RN ss Brown, Zipporah, RN RN zb Corrections: (The following items were deleted from the chart) 14:25 14:24 Hoop[place] (7.5 mg-325 mg) 1 tabs PO once; RASS on ADMIN: Combtv4, Very Agttd3, kb Agttd2, Rstlss1, AlertClm0, Drwsy-1, Lt Sdtn-2, Mod Sdtn-3, Dp Sdtn-4, UnArsble-5 ordered. kb 16:13 15:29 08/26/2020 15:29 Discharged to Home. Impression: Low back pain; Sprain of ankle; zb Abrasion of knee. Condition is Stable. Forms are Medication Reconciliation Form, Thank You Letter, Antibiotic Education, Prescription Opioid Use. Follow up: Emergency Department; When: As needed; Reason: Worsening of condition. Follow up: Private Physician; When: 2 - 3 days; Reason: Recheck today's complaints, Continuance of care, Re-evaluation by your physician. kb
[2020-08-26] MEDS ORDERED: LIDOCAINE 4% PATCH ONE (15:50)
== END 2020-08-26 16:13 | disposition home or self-care (01) ==
LOC: ER 13:24
DX: M54.5 Low back pain (principal); S80.212A Abrasion, left knee, initial encounter; S93.401A Sprain of unspecified ligament of right ankle, initial encounter; W01.0XXA Fall on same level from slipping, tripping and stumbling without subsequent striking against object, initial encounter; Y93.9 Activity, unspecified; Y92.832 Beach as the place of occurrence of the external cause
CPT/HCPCS: 72131; 99284

== ENCOUNTER 2022-02-17 04:33 | Inpatient (IN) | payer OTHER ==
[2022-02-17] MEDS ORDERED: ONDANSETRON 4 MG/2 ML VIAL ONE (05:35)
[2022-02-17] MEDS ORDERED: MORPHINE 4 MG/ML SYR ONE (05:35)
[2022-02-17] MEDS ORDERED: NA CHLORIDE 0.9% 1,000 ML ONE ×2 (05:36→06:44)
[2022-02-17] MEDS ORDERED: FAMOTIDINE 20 MG/2 ML VIAL IV ONE (05:37)
[2022-02-17 05:57] LABS: Absolute Lymphocytes (CBC) 0.9 K/uL (0.7-4.9); Hematocrit 51.4 % (39.6-49.0); Lymphocytes % 3.9 % (15.3-44.8); MPV 10.3 fL (7.6-11.3); RBC Red Blood Cell Count 5.47 M/uL (4.33-5.43)
[2022-02-17 06:17] LABS: Albumin 3.9 g/dL (3.4-5.0); Bilirubin Total 1.5 mg/dL (0.2-1.0); Protein, Total 8.1 g/dL (6.4-8.2)
[2022-02-17] MEDS ORDERED: PIPERACIL/TAZO 3.375 GM VIAL IV ONE (06:44)
[2022-02-17] MEDS ORDERED: NA CHLORIDE 0.9% 100 ML ONE (06:44)
[2022-02-17] MEDS ORDERED: MORPHINE 2 MG/ML SYR ONE (06:52)
[2022-02-17 06:55] LABS: Protime INR 1.04
[2022-02-17 07:09] LABS: Magnesium 1.7 mg/dL (1.8-2.4)
--- NOTE | 2022-02-17 07:26 | RAD REPORT ---
EXAM DESCRIPTION: CTAbdomen Pelvis W Contrast - 02/17/2022 7:06 am CLINICAL HISTORY: Abdominal pain, acute, nonlocalized COMPARISON: No comparisonsNo [id number] DIAG SOL BILAT W/CAD dated 13D DIAG SOL BILAT W/C AD dated 02/13/2021; [facility] BREAST TISSUE SAMPLE dated 04/04/20203D DIAG SOL BILAT W/CAD dated 02/13/2021; [facility] BREAST TISSUE SAMPLE dated 04/04/2020; [facility] BREAST NEEDLE LOCALIZATION dated 04/04/2020No comparison sChest Abdomen Pelvis W Cont dated 02/05/2018 TECHNIQUE: CT of the abdomen and pelvis was performed with contrast. All CT scans are performed using dose optimization technique as appropriate and may include automated exposure control or mA/KV adjustment according to patient size. FINDINGS: Lower chest: Scarring at the right lung base. Coronary artery calcifications. Small mild f luid in the distal esophagus . Liver: No acute abnormality or suspicious lesions. Biliary: No biliary ductal dilatation. Stomach: No significant focal abnormality. Duodenum: No significant focal abnormality. Pancreas: No significant abnormality. Spleen: No significant abnormality. Adrenal: No suspicious lesions. Kidney/ureter: No hydronephrosis. No renal calculi. Left upper pole renal cyst. Left lower pole renal lesion is too small to characterize. Retroperitoneum: No retroperitoneal adenopathy. Vascular: No aneurysm. Bowel: Small bowel obstruction with transition point in the right hemiabdomen. Small bowel measures o rodney 3 cm. Long segment thickening and mild hyperenhancement of the ileum. .. Diverticulosis. Peritoneum: No ascites or free air. Fat containing umbilical hernia. Fat containing inguinal hernias. Bladder: Grossly unremarkable. Reproductive: No adnexal masses. Bones: No acute fracture. L4-5 fusion . Other: n/a IMPRESSION: Small bowel obstruction with transition point in the right hemiabdomen. Long segment thi ckening of the ileum. The obstruction could be due to either adhesions or secondary to a stricture. N o obstructing mass. .
--- NOTE | 2022-02-17 07:33 | RAD REPORT ---
EXAM DESCRIPTION: RAD - Chest Single View - 02/17/2022 6:27 am CLINICAL HISTORY: ABDOMINAL DISTENTION COMPARISON: Chest Pa And Lat (2 Views) dated 10/18/2019 FINDINGS: Lines: None. Lungs: Linear opacities at the left lung base likely reflecting subsegmental atelectasis. Pleural: No significant pleural effusions or pneumothorax. Cardiac: The heart size is within normal limits. Bones: No acute fractures. Other: IMPRESSION: No acute cardiopulmonary disease.
[2022-02-17] MEDS ORDERED: Magnesium Sulfate 2gm IVPB 2 G/50 ML BAG IV ONE (07:43)
[2022-02-17 09:02] LABS: Blood Morphology Comment NOT SEEN (NOT SEEN); Platelet Estimate ADEQ; White Blood Cell Scan OK (OK)
--- NOTE | 2022-02-17 09:41 | EDPHYS ---
Physician Documentation [facility] Name: Harrison Arriaza Age: 72 yrs Sex: Male : 1950 Arrival Date: 02/17/2022 Time: 04:33 Bed 4 Private MD: Eliel Hi H ED Physician Salo Wu HPI: 02/17 06:26 This 72 yrs old Male presents to ER via Ambulatory with complaints of rahel Abdominal Pain, Nausea/Vomiting. 06:26 The patient presents to the emergency department with nausea, vomiting, Onset: The rahel symptoms/episode began/occurred 1 day(s) ago. Possible causes: unknown. The symptoms are aggravated by nothing. The symptoms are alleviated by nothing. Associated signs and symptoms: Pertinent positives: abdominal pain, nausea, vomiting. Severity of symptoms: At their worst the symptoms were moderate in the emergency department the symptoms are unchanged. The patient has not experienced similar symptoms in the past. Historical: - Allergies: 05:01 No Known Allergies; ll3 - PMHx: 05:01 Diabetes - NIDDM; Hypertension; ll3 - Immunization history:: Client reports receiving the 2nd dose of the Covid vaccine. - Social history:: Smoking status: Patient denies any tobacco usage or history of. ROS: 06:27 Constitutional: Negative for fever, chills, and weight loss, Eyes: Negative for injury, rahel pain, redness, and discharge, ENT: Negative for injury, pain, and discharge, Neck: Negative for injury, pain, and swelling, Cardiovascular: Negative for chest pain, palpitations, and edema, Respiratory: Negative for shortness of breath, cough, wheezing, and pleuritic chest pain, Back: Negative for injury and pain, : Negative for injury, bleeding, discharge, and swelling, MS/Extremity: Negative for injury and deformity, Skin: Negative for injury, rash, and discoloration, Neuro: Negative for headache, weakness, numbness, tingling, and seizure, Psych: Negative for depression, anxiety, suicide ideation, homicidal ideation, and hallucinations, Allergy/Immunology: Negative for hives, rash, and allergies, Endocrine: Negative for neck swelling, polydipsia, polyuria, polyphagia, and marked weight changes, Hematologic/Lymphatic: Negative for swollen nodes, abnormal bleeding, and unusual bruising. 06:27 Abdomen/GI: Positive for abdominal pain, nausea and vomiting, of the suprapubic area, right upper quadrant, left upper quadrant, right lower quadrant and left lower quadrant. Exam: 06:27 Constitutional: This is a well developed, well nourished patient who is awake, alert, rahel and in no acute distress. Head/Face: Normocephalic, atraumatic. Eyes: Pupils equal round and reactive to light, extra-ocular motions intact. Lids and lashes normal. Conjunctiva and sclera are non-icteric and not injected. Cornea within normal limits. Periorbital areas with no swelling, redness, or edema. ENT: Nares patent. No nasal discharge, no septal abnormalities noted. Tympanic membranes are normal and external auditory canals are clear. Oropharynx with no redness, swelling, or masses, exudates, or evidence of obstruction, uvula midline. Mucous membranes moist. Neck: Trachea midline, no thyromegaly or masses palpated, and no cervical lymphadenopathy. Supple, full range of motion without nuchal rigidity, or vertebral point tenderness. No Meningismus. Chest/axilla: Normal chest wall appearance and motion. Nontender with no deformity. No lesions are appreciated. Cardiovascular: Regular rate and rhythm with a normal S1 and S2. No gallops, murmurs, or rubs. Normal PMI, no JVD. No pulse deficits. Respiratory: Lungs have equal breath sounds bilaterally, clear to auscultation and percussion. No rales, rhonchi or wheezes noted. No increased work of breathing, no retractions or nasal flaring. Back: No spinal tenderness. No costovertebral tenderness. Full range of motion. Male : Normal genitalia with no discharge or lesions. Skin: Warm, dry with normal turgor. Normal color with no rashes, no lesions, and no evidence of cellulitis. MS/ Extremity: Pulses equal, no cyanosis. Neurovascular intact. Full, normal range of motion. Neuro: Awake and alert, GCS 15, oriented to person, place, time, and situation. Cranial nerves II-XII grossly intact. Motor strength 5/5 in all extremities. Sensory grossly intact. Cerebellar exam normal. Normal gait. Psych: Awake, alert, with orientation to person, place and time. Behavior, mood, and affect are within normal limits. 06:27 Abdomen/GI: Inspection: distension, that is moderate, Bowel sounds: hyperactive, Palpation: moderate abdominal tenderness, in all quadrants, Liver: no appreciated palpable abnormalities, Hernia: not appreciated. 11:05 ECG was reviewed by the Attending Physician. kdr Vital Signs: 04:57 BP 136 / 82; Pulse 106; Resp 18; Temp 98.2(O); Pulse Ox 95% on R/A; Weight 95.25 kg ll3 (R); Height 5 ft. 10 in. (177.80 cm) (R); Pain 10/10; 06:50 BP 137 / 69; Pulse 95; Resp 18; Pulse Ox 96% on R/A; lg3 07:15 BP 133 / 65; Pulse 96; Pulse Ox 94% on R/A; kr3 08:00 BP 135 / 70; Pulse 89; Pulse Ox 94% ; kr3 09:00 BP 133 / 68; Pulse 91; Pulse Ox 94% on R/A; kr3 10:00 BP 128 / 59; Pulse 83; Pulse Ox 94% ; kr3 11:08 BP 122 / 66; Pulse 76; Pulse Ox 95% on R/A; kr3 04:57 Body Mass Index 30.13 (95.25 kg, 177.80 cm) ll3 MDM: 05:26 Patient medically screened. rahel 06:29 Differential diagnosis: Nonspecific abd pain, pancreatitis, diverticulitis, viral rahel gastroenteritis, gastroenteritis. Data reviewed: vital signs, nurses notes, lab test result(s), EKG, radiologic studies, CT scan, plain films. Data interpreted: monitor and storage bin tender: rate is 106 beats/min, rhythm is regular, Pulse oximetry: on room air is 95 %. Test interpretation: by ED physician or midlevel provider: ECG, plain radiologic studies. Counseling: I had a detailed discussion with the patient and/or guardian regarding: the historical points, exam findings, and any diagnostic results supporting the discharge/admit diagnosis, lab results, radiology results, the need for further work-up and treatment in the hospital. 02/17 05:15 Order name: CBC with Diff; Complete Time: 09:17 lp1 02/17 05:15 Order name: CMP; Complete Time: 06:25 lp1 02/17 05:15 Order name: Lipase; Complete Time: 06:25 lp1 02/17 06:03 Order name: Magnesium; Complete Time: 07:24 rahel 02/17 06:03 Order name: NT PRO-BNP; Complete Time: 07:24 [facility] 02/17 06:03 Order name: PT-INR; Complete Time: 07:24 [facility] 02/17 06:03 Order name: Troponin HS; Complete Time: 07:24 [facility] 02/17 06:07 Order name: SARS-COV-2 RT PCR (Document "Date of Onset" if Symptomatic); Complete Time: [facility] 09:17 02/17 06:07 Order name: Lactate; Complete Time: 07:24 [facility] 02/17 09:03 Order name: CBC Smear Scan; Complete Time: 09:17 EDMS 02/17 10:40 Order name: CBC with Automated Diff EDMS 02/17 10:40 Order name: CBC with Automated Diff EDMS 02/17 10:40 Order name: Comprehensive Metabolic Panel EDMS 02/17 10:40 Order name: Comprehensive Metabolic Panel EDMS 02/17 06:03 Order name: XRAY Chest (1 view); Complete Time: 09:17 [facility] 02/17 06:09 Order name: CT Abd/Pelvis - IV Contrast Only [facility] 02/17 06:15 Order name: Abdomen ; Complete Time: 09:17 EDMS 02/17 10:40 Order name: Magnesium EDMS 02/17 10:40 Order name: Magnesium EDMS 02/17 10:40 Order name: Phosphorus EDMS 02/17 10:40 Order name: Phosphorus EDMS 02/17 10:41 Order name: Abdomen Acute Series EDMS 02/17 05:15 Order name: IV Saline Lock; Complete Time: 05:38 lp1 02/17 05:15 Order name: Labs collected and sent; Complete Time: 05:38 lp1 02/17 06:03 Order name: EKG; Complete Time: 06:04 [facility] 02/17 06:03 Order name: Cardiac monitoring; Complete Time: 09:33 [facility] 02/17 06:03 Order name: EKG - Nurse/Tech; Complete Time: 07:37 [facility] 02/17 06:03 Order name: O2 Per Protocol; Complete Time: 06:21 [facility] 02/17 06:03 Order name: O2 Sat Monitoring; Complete Time: 06:21 [facility] 02/17 10:40 Order name: CONS Physician Consult EDMS 02/17 10:40 Order name: NPO EDMS EC:05 Rate is 93 beats/min. Rhythm is regular, Normal Sinus Rhythm with No ectopy. QRS [place] kdr is Normal. AR interval is normal. QRS interval is normal. QT interval is normal. Clinical impression: Normal ECG. Administered Medications: 05:36 Not Given (Patient Refused): morphine 4 mg IVP once over 4 mins ll3 05:38 Not Given (Patient Refused): Zofran (Ondansetron) 4 mg IVP once; over 2 minutes ll3 05:47 Drug: NS 0.9% 1000 ml Route: IV; Rate: 1 bolus; Site: right antecubital; lg3 10:38 Follow up: Response: No adverse reaction; IV Status: Completed infusion; IV Intake: kr3 1000ml 05:47 Drug: Pepcid (famotidine) 20 mg Route: IVP; Site: right antecubital; lg3 05:49 Follow up: Response: No adverse reaction lg3 05:49 Drug: morphine 4 mg Route: IVP; Infused Over: 4 mins; Site: right antecubital; lg3 05:49 Follow up: Response: No adverse reaction lg3 05:49 Drug: Zofran (Ondansetron) 4 mg Route: IVP; Site: right antecubital; lg3 05:49 Follow up: Response: No adverse reaction lg3 06:43 Drug: Zosyn (piperacillin-tazobactam) 3.375 grams Route: IVPB; Infused Over: 60 mins; lg3 Site: right antecubital; 07:15 Follow up: Response: No adverse reaction; IV Status: Completed infusion; IV Intake: kr3 100ml 06:45 Drug: morphine 2 mg Route: IVP; Infused Over: 4 mins; Site: right antecubital; lg3 06:45 Follow up: Response: No adverse reaction lg3 06:50 Drug: NS 0.9% 1000 ml Route: IV; Rate: 125 ml/hr; Site: right antecubital; lg3 11:32 Follow up: Response: No adverse reaction; IV Status: Infusion continued upon admission; kr3 IV Intake: 600ml 07:39 Drug: Magnesium Sulfate 1 grams Route: IVPB; Infused Over: 1 hrs; Site: right [place] antecubital; 10:37 Follow up: Response: No adverse reaction; IV Status: Completed infusion; IV Intake: [id number] Disposition Summary: 02/17/22 09:39 Hospitalization Ordered Hospitalization Status: Inpatient Admission kdr Provider: Lakhwinder Jasmine Location: Telemetry/MedSurg (Inpatient) kdr Condition: Fair kdr Problem: new kdr Symptoms: have improved kdr Bed/Room Type: Standard kdr Room Assignment: 214(02/17/22 11:00) eb Diagnosis - Small bowel obstruction kdr Forms: - Medication Reconciliation Form kdr - SBAR form kdr Signatures: Dispatcher [employer] EDDg Vasquez MD MD cha Rittger, Kevin, MD MD kdr Pena, Laura, RN RN lp1 Adwoa Ng Lacie, RN RN lg3 Khalif Liu RN RN ll3 Niharika Dalal RN RN [place] Lyric Ennis RN kr3 Corrections: (The following items were deleted from the chart) 11:00 09:39 kdr eb
--- NOTE | 2022-02-17 09:41 | ER ---
Nurse's Notes [facility] Name: Harrison Arriaza Age: 72 yrs Sex: Male : 1950 Arrival Date: 02/17/2022 Time: 04:33 Bed 4 Private MD: Eliel Hi H Diagnosis: Small bowel obstruction Presentation: 02/17 04:57 Chief complaint: Patient states: C/o nausea, dry heaving since last night, and ll3 abdominal pain 10/10 since last night. Coronavirus screen: Vaccine status: Patient reports receiving the 2nd dose of the covid vaccine. nausea, vomiting. Ebola Screen: No symptoms or risks identified at this time. Initial Sepsis Screen: Does the patient meet any 2 criteria? HR > 90 bpm. No. Patient's initial sepsis screen is negative. Does the patient have a suspected source of infection? No. Patient's initial sepsis screen is negative. Risk Assessment: Do you want to hurt yourself or someone else? Patient reports no desire to harm self or others. Onset of symptoms was February 16, 2022 at 00:00. 04:57 Method Of Arrival: Ambulatory ll3 04:57 Acuity: SHARAN 3 ll3 Triage Assessment: 05:01 General: Appears ill, Behavior is calm, cooperative. Pain: Complains of pain in right ll3 upper quadrant Pain radiates to right lower quadrant and left lower quadrant Pain currently is 10 out of 10 on a pain scale. Pain began 4 hours ago. Is continuous. Neuro: Level of Consciousness is awake, alert, obeys commands, Oriented to person, place, time, situation. Respiratory: Respiratory effort is even, unlabored, Respiratory pattern is regular, symmetrical. GI: Abdomen is round non-distended, Stools are reported to be normal. Abd is soft X 4 quads Abd is non tender in right lower quadrant and left lower quadrant Abdomen is tender to palpation in right upper quadrant Reports nausea, vomiting, since 12 AM Patient currently denies diarrhea. Derm: Skin is pink, warm \\T\\ dry. Historical: - Allergies: 05:01 No Known Allergies; ll3 - PMHx: 05:01 Diabetes - NIDDM; Hypertension; ll3 - Immunization history:: Client reports receiving the 2nd dose of the Covid vaccine. - Social history:: Smoking status: Patient denies any tobacco usage or history of. Screenin:04 Abuse screen: Denies threats or abuse. Nutritional screening: No deficits noted. ll3 Tuberculosis screening: No symptoms or risk factors identified. 05:50 Fall Risk None identified. lg3 Assessment: 05:04 General: See triage assessment. GI: Bowel sounds present X 4 quads. ll3 05:50 General: Appears in no apparent distress. uncomfortable, Behavior is calm, cooperative. lg3 Pain: Complains of pain in epigastric area, right upper quadrant and left upper quadrant. Neuro: No deficits noted. Level of Consciousness is awake, alert, obeys commands, Oriented to person, place, time, situation. Cardiovascular: No deficits noted. Denies chest pain, shortness of breath, Capillary refill < 3 seconds Clubbing of nail beds is absent JVD is absent Patient's skin is warm and dry. Respiratory: No deficits noted. Airway is patent Trachea midline Respiratory effort is even, unlabored, Respiratory pattern is regular, symmetrical, Breath sounds are clear bilaterally. GI: Bowel sounds present X 4 quads. Abd is soft X 4 quads Abdomen is tender to palpation in right upper quadrant and left upper quadrant Reports upper abdominal pain, epigastric pain, indigestion, nausea, vomiting. : No deficits noted. No signs and/or symptoms were reported regarding the genitourinary system. EENT: No deficits noted. No signs and/or symptoms were reported regarding the EENT system. Derm: No deficits noted. No signs and/or symptoms reported regarding the dermatologic system. Skin is intact, is healthy with good turgor, Skin is dry, Skin temperature is warm. Musculoskeletal: No deficits noted. No signs and/or symptoms reported regarding the musculoskeletal system. Circulation, motion, and sensation intact. Range of motion: intact in all extremities. 06:50 Reassessment: Patient appears in no apparent distress at this time. No changes from lg3 previously documented assessment. Patient and/or family updated on plan of care and expected duration. Pain level reassessed. Patient is alert, oriented x 3, equal unlabored respirations, skin warm/dry/pink. 07:00 Reassessment: No changes from previously documented assessment. report received from ll1 line staker RN. 07:23 Reassessment: No changes from previously documented assessment. Patient and/or family ll1 updated on plan of care and expected duration. Pain level reassessed. Patient is alert, oriented x 3, equal unlabored respirations, skin warm/dry/pink. Patient states feeling better. Vital Signs: 04:57 BP 136 / 82; Pulse 106; Resp 18; Temp 98.2(O); Pulse Ox 95% on R/A; Weight 95.25 kg ll3 (R); Height 5 ft. 10 in. (177.80 cm) (R); Pain 10/10; 06:50 BP 137 / 69; Pulse 95; Resp 18; Pulse Ox 96% on R/A; lg3 07:15 BP 133 / 65; Pulse 96; Pulse Ox 94% on R/A; kr3 08:00 BP 135 / 70; Pulse 89; Pulse Ox 94% ; kr3 09:00 BP 133 / 68; Pulse 91; Pulse Ox 94% on R/A; kr3 10:00 BP 128 / 59; Pulse 83; Pulse Ox 94% ; kr3 11:08 BP 122 / 66; Pulse 76; Pulse Ox 95% on R/A; kr3 04:57 Body Mass Index 30.13 (95.25 kg, 177.80 cm) ll3 ED Course: 04:33 Patient arrived in ED. am2 04:34 Eliel Hi DO is Private Physician. am2 04:45 Khalif Liu, RN is Primary Nurse. ll3 05:01 Triage completed. ll3 05:01 Arm band placed on Patient placed in an exam room, on a stretcher, on pulse oximetry. ll3 05:05 Patient has correct armband on for positive identification. Bed in low position. Call ll3 light in reach. Side rails up X 1. 05:26 Dg Tenorio MD is Attending Physician. rahel 05:48 CBC with Diff Sent. lg3 05:48 CMP Sent. lg3 05:48 Lipase Sent. lg3 05:50 Client placed on continuous cardiac and pulse oximetry monitoring. NIBP monitoring lg3 applied. Door closed. Noise minimized. Warm blanket given. Family accompanied patient. 05:50 Inserted saline lock: 22 gauge in right antecubital area, using aseptic technique. lg3 Blood collected. 06:04 Notified ED physician of a critical lab result(s). WBC 23.4. lp1 06:30 XRAY Chest (1 view) In Process Unspecified. EDMS 06:31 SARS-COV-2 RT PCR (Document "Date of Onset" if Symptomatic) Sent. mh5 06:31 COVID swab sent to lab. mh5 06:35 Lactate Sent. lg3 06:50 Lactate Sent. lg3 06:50 Magnesium Sent. lg3 06:50 NT PRO-BNP Sent. lg3 06:50 PT-INR Sent. lg3 06:50 Troponin HS Sent. lg3 07:08 Abdomen In Process Unspecified. EDMS 07:36 EKG done, by ED staff, reviewed by Salo Wu MD. jw7 09:17 Attending Physician role handed off by Dg Tenorio MD kdr 09:17 Salo Wu MD is Attending Physician. kdr 09:37 Lakhwinder Jasmine MD is Hospitalizing Provider. kdr 10:32 No provider procedures requiring assistance completed. Patient admitted, IV remains in kr3 place. 10:57 NGT: inserted 16 Fr. via left nare. other not successful, difficulty breathing, kr3 coughing, removed immediately, pt refused second attempt. Patient tolerated poorly. Administered Medications: 05:36 Not Given (Patient Refused): morphine 4 mg IVP once over 4 mins ll3 05:38 Not Given (Patient Refused): Zofran (Ondansetron) 4 mg IVP once; over 2 minutes ll3 05:47 Drug: NS 0.9% 1000 ml Route: IV; Rate: 1 bolus; Site: right antecubital; lg3 10:38 Follow up: Response: No adverse reaction; IV Status: Completed infusion; IV Intake: kr3 1000ml 05:47 Drug: Pepcid (famotidine) 20 mg Route: IVP; Site: right antecubital; lg3 05:49 Follow up: Response: No adverse reaction lg3 05:49 Drug: morphine 4 mg Route: IVP; Infused Over: 4 mins; Site: right antecubital; lg3 05:49 Follow up: Response: No adverse reaction lg3 05:49 Drug: Zofran (Ondansetron) 4 mg Route: IVP; Site: right antecubital; lg3 05:49 Follow up: Response: No adverse reaction lg3 06:43 Drug: Zosyn (piperacillin-tazobactam) 3.375 grams Route: IVPB; Infused Over: 60 mins; lg3 Site: right antecubital; 07:15 Follow up: Response: No adverse reaction; IV Status: Completed infusion; IV Intake: kr3 100ml 06:45 Drug: morphine 2 mg Route: IVP; Infused Over: 4 mins; Site: right antecubital; lg3 06:45 Follow up: Response: No adverse reaction lg3 06:50 Drug: NS 0.9% 1000 ml Route: IV; Rate: 125 ml/hr; Site: right antecubital; lg3 11:32 Follow up: Response: No adverse reaction; IV Status: Infusion continued upon admission; kr3 IV Intake: 600ml 07:39 Drug: Magnesium Sulfate 1 grams Route: IVPB; Infused Over: 1 hrs; Site: right [place] antecubital; 10:37 Follow up: Response: No adverse reaction; IV Status: Completed infusion; IV Intake: [id number] Medication: 07:23 VIS not applicable for this client. ll1 Intake: 07:15 IV: 100ml; Total: 100ml. kr3 10:37 IV: 50ml; Total: 150ml. kr3 10:38 IV: 1000ml; Total: 1150ml. kr3 11:32 IV: 600ml; Total: 1750ml. kr3 Outcome: 09:39 Decision to Hospitalize by Provider. kdr 10:32 Condition: stable kr3 10:32 Instructed on the need for admit. 11:35 Admitted to Tele accompanied by tech, via wheelchair, room 214, with chart, Report kr3 called to Yadira Thomas RN 11:42 Patient left the ED. kr3 Signatures: Dispatcher [employer] EDMS Dg Tenorio MD MD cha Rittger, Kevin, MD MD kdr Pena, Laura, RN RN lp1 Sahara Gibbons 5 Anna Phoenix am2 Giovanna Farah RN RN lg3 Windy Brambila RN RN ll1 Khalif Liu RN RN ll3 Niharika Dalal RN RN ha Waits, Jodi 7 Lyric Ennis RN RN kr3
[2022-02-17] MEDS ORDERED: ONDANSETRON 4 MG/2 ML VIAL IV PRN (10:35)
[2022-02-17] MEDS ORDERED: HYDROMORPHONE HCL 1 MG/ML INJ IV PRN (10:35)
[2022-02-17] MEDS ORDERED: ACETAMINOPHEN 500 MG TAB PO PRN (10:35)
--- NOTE | 2022-02-17 10:44 | P.HP ---
Certification for Inpatient Patient admitted to: Inpatient With expected LOS: >2 Midnights Patient will require the following post-hospital care: None Practitioner: I am a practitioner with admitting privileges, knowledge of patient current condition, hospital course, and medical plan of care. Services: Services provided to patient in accordance with Admission requirements found in Title 42 Section 412.3 of the Code of Federal Regulations Patient History Date of Service: 02/17/22 Reason for admission: Small bowel obstruction History of Present Illness: Patient is a who presents to the emergency room with abdominal pain and intractable nausea and vomiting. Patient has been fairly healthy most of his life. 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 He has a umbilical hernia as well. Otherwise, he really does not take many medications. He has been doing well until Saturday when he started having abdominal pain and nausea and vomiting. It continued through the evening so he came into the emergency room Saturday morning. In the emergency room he had a CT scan of his abdomen pelvis performed which revealed a small bowel obstruction. It appeared patient had adhesions were a long stricture. Emergency room physician spoke to general surgery and they recommended NG tube suctioning and IV fluids. We will go ahead and admit the patient to the hospital for further evaluation. Allergies No Known Drug Allergies Allergy (Unverified 05/05/15 23:44) Unknown - Past Medical/Surgical History Past Medical History: Patient denies medical history -: Laparoscopic procedure to remove mass off the aorta - Family History Father Family History: Reviewed- Non-Contributory - Social History Smoking therapy provided: No Alcohol use: No CD- Drugs: No Review of Systems 10-point ROS is otherwise unremarkable Physical Examination - Vital Signs Temperature: 98 F Blood Pressure: 140/80 Pulse: 80 Respirations: 18 Pulse Ox (%): 95 - Physical Exam General: Alert, In no apparent distress, Oriented x3 HEENT: Atraumatic, PERRLA, Mucous membr. moist/pink, EOMI, Sclerae nonicteric Neck: Supple, 2+ carotid pulse no bruit, No LAD, Without JVD or thyroid abnormality Respiratory: Clear to auscultation bilaterally, Normal air movement Cardiovascular: Regular rate/rhythm, Normal S1 S2, No murmurs Gastrointestinal: Normal bowel sounds, Soft and benign, Distended, Tenderness, Rebound Musculoskeletal: No clubbing, No swelling, No tenderness Integumentary: No rashes Neurological: Normal gait, Normal speech, Normal strength at 5/5 x4 extr, Normal tone, Sensation intact, Cranial nerves 3-12 intact, Normal affect Lymphatics: No axilla or inguinal lymphadenopathy - Studies Laboratory Data (last 24 hrs) 02/17/22 06:33: PT 11.4, INR 1.04 02/17/22 06:33: Magnesium 1.7 L 02/17/22 05:45: Sodium 133 L, Potassium 4.0, BUN 16, Creatinine 1.21, Glucose 276 H, Total Bilirubin 1.5 H, AST 26, ALT 31, Alkaline Phosphatase 85, Lipase 55 L 02/17/22 05:45: WBC 23.4 H*, Hgb 17.8, Hct 51.4 H, Plt Count 238 Assessment & Plan - Problems (Diagnosis) (1) SBO (small bowel obstruction) Current Visit: Yes Status: Acute (2) DM2 (diabetes mellitus, type 2) Current Visit: Yes Status: Acute (3) HTN (hypertension) Current Visit: Yes Status: Acute - Plan Plan: 1. IV fluids 2. Pain control 3. NG tube to low intermittent wall suctioning 4. General surgery consultation 5. Antibiotic therapy 6. Antiemetics as needed 7. GI DVT prophylaxis Discharge Plan: Home Plan to discharge in: Greater than 2 days - Advance Directives Does patient have a Living Will: No Does patient have a Durable POA for Healthcare: No - Code Status/Comfort Care Code Status Assessed: Yes Code Status: Full Code Critical Care: No Time Spent Managing PTS Care (In Minutes): 45
[2022-02-17 11:40] VITALS: BMI 30.4
[2022-02-17] MEDS: NA CHLORIDE 0.9% 1,000 ML IV SCH ×2 (12:08→21:29)
[2022-02-17] MEDS: METRONIDAZOLE 500mg IVPB 500 MG/100 ML BAG IV SCH ×2 (12:11→17:27)
[2022-02-17 12:46] VITALS: O2SAT 95
--- NOTE | 2022-02-17 13:01 | RAD REPORT ---
EXAM DESCRIPTION: RAD - Abdomen Acute Series - 02/17/2022 12:21 pm CLINICAL HISTORY: SBO COMPARISON: Chest Single View dated 02/17/2022; Chest Pa And Lat (2 Views) dated 10/18/2019; Abdomen P dante W Contrast dated 02/17/2022 FINDINGS: Air-fluid levels are present in the central and left left hemiabdomen with the dilated sma ll bowel. No acute osseous abnormality.Visualized lungs are unremarkable.No abnormal calcifications. Fusion hardware in the lumbar spine. Linear atelectasis bilaterally. IMPRESSION: Air-fluid levels and dilated small bowel in the central and left hemiabdomen consistent with the patient's known small bowel obstruction.
[2022-02-17] MEDS: Levofloxacin500mg IV 500 MG/100 ML BAG IV SCH (13:21)
--- NOTE | 2022-02-17 18:43 | CON ---
Date of Consultation: 02/17/2022 Brief History Of Present Illness: Patient is a 72-year-old male who presents with approximately 5 da ys of slow progressive abdominal discomfort. He thought that this was related to taking pain medicat ion, Toradol for his chronic back pain issues. He states that he takes pain medication on occasion a nd will get more constipated. He attributed his abdominal pain and distention with this issue. Cummings rodney, over the past 2 to 3 days, his pain got significantly worse and yesterday became severe and excr uciating to the point where he thought he was having an intraabdominal disaster. He, therefore, aske d to be brought to the ER due to the severe central abdominal pain he was experiencing. It was assoc iated with 5 to 6 episodes of nausea and vomiting at home and 2 to 3 episodes of nausea and vomiting here at the facility. He states he has been having normal bowel movements including normal bowel mov ement yesterday, but he notes a decreased passage of gas over the past 2 days. He does have some mil d abdominal distention. He has had no change, otherwise, in his bowel or bladder habits. 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 Oneill, [facility]. He states this w as years ago and has not had any episodes of recurrence. He cannot recall the pathology of this mass . Past Medical History: Significant for uncertain abdominal mass as above, as well as, diabetes, hyper tension. Past Surgical History: Includes back surgery, as well as, removal of a periaortic mass as described above. Allergies: NO KNOWN DRUG ALLERGIES. Social History: He denies smoking, alcohol, or recreational drug use. Review of Systems: Ten-point review of systems other than HPI, denies. He currently feels significantly better with onl y minimal discomfort to his abdomen at this time. Physical Examination: Vital Signs: BMI of 30.5. His blood pressure was 122/66, pulse 76, respiratory rate is 18, temperat ure 98.0, SpO2 95% on room air. General: He is awake, alert, and oriented. Psychiatric: Appropriate, conversive. HEENT: Normocephalic. Sclerae icteric. Mucous membranes are moist. Oropharynx clear. Neck: Supple without JVD. Chest: Normal to expansion and excursion. Cardiovascular: Regular rate and rhythm. Pulmonary: Clear to auscultation bilaterally. Abdomen: Soft. Mildly obese. Tympanic. No rebound. No guarding. No focal peritonitis. He has a n umbilical hernia and bilateral inguinal hernias palpable. The umbilical hernia is not reducible bu t is not tender on examination at this time. Extremities: No clubbing, cyanosis, or edema. Skin: Warm and dry. Laboratory Exam: Revealed a white blood cell count of 23.4, hemoglobin was 17.8, hematocrit 51.4, pl atelet count was 238. His neutrophils are 90%. Sodium is 133, potassium 4.0, chloride is 98, carbon dioxide 28, BUN 16, creatinine 1.2. His PT 11.4, INR 1.4, glucose is 276, lactic acid 1.9, magnesiu m 1.7. Total bilirubin is at 1.5, AST 26, ALT 31. His lipase is 55. He had imaging performed, ic h included a CT abdomen and pelvis which was officially read as no retroperitoneal adenopathy. No an eurysm. Small bowel obstruction with transition point at right hemiabdomen, small bowel measures ove r 3 cm, long segment, thickened and mild hyperenhancement of the ileum. Diverticulosis. No ascites or free air. Fat containing umbilical hernia. Fat containing inguinal hernias. Small bowel obstruc tion with transition point in the right hemiabdomen, long segment of thickening ileum. The obstructi on could be due either to adhesions or secondary to stricture. No obstructing mass noted. Assessment And Plan: This is a 72-year-old male who comes in with signs and symptoms of a partial sm all bowel obstruction. 1.IV fluid hydration. 2.N.p.o. status. 3.NG tube decompression, should the patient have emesis. 4.Continue medical management. 5.Serial abdominal exams. 6.I have explained operative versus nonoperative management. We will continue with nonoperative man agement at this point as he has a fairly benign abdominal examination at this point, not necessitatin g emergency surgery. I have explained risks, benefits, and alternatives to above-stated plan. The p atient agrees to proceed as indicated. Thank you for this interesting consult. JUSTIN/RIC Voice ID: [id number] Report ID: [id number]
[2022-02-18] MEDS: METRONIDAZOLE 500mg IVPB 500 MG/100 ML BAG IV SCH ×3 (00:13→11:46)
[2022-02-18 05:43] LABS: Absolute Lymphocytes (CBC) 1.7 K/uL (0.7-4.9); Hematocrit 44.7 % (39.6-49.0); Lymphocytes % 17.7 % (15.3-44.8); MCV 94.7 fL (80-100); MPV 10.2 fL (7.6-11.3); RBC Red Blood Cell Count 4.72 M/uL (4.33-5.43)
[2022-02-18 06:02] LABS: Bilirubin Total 1.4 mg/dL (0.2-1.0); Magnesium 1.9 mg/dL (1.8-2.4); Phosphorus 2.2 mg/dL (2.5-4.9); Potassium 3.5 mmol/L (3.5-5.1); Protein, Total 6.2 g/dL (6.4-8.2)
[2022-02-18] MEDS ORDERED: ENOXAPARIN 30 MG/0.3 ML SQ SCH (09:00)
--- NOTE | 2022-02-18 10:53 | P.PN ---
Subjective Date of Service: 02/18/22 Chief Complaint: Small bowel obstruction Subjective: Improving (passing gas, small bowel movement, no nausea, no pain, ambulatory) Physical Examination - Vital Signs Temperature: 97.7 F Blood Pressure: 140/69 Pulse: 70 Respirations: 18 Pulse Ox (%): 94 - Physical Exam General: Alert, In no apparent distress, Cooperative Respiratory: Clear to auscultation bilaterally, Normal air movement Cardiovascular: Regular rate/rhythm Gastrointestinal: Soft and benign, Non-distended, No ascites, No tenderness, No masses, No rebound, No guarding, Other (umbilical, bilateral inguinal hernias noted - non-tender) Assessment And Plan - Current Problems (Diagnosis) (1) SBO (small bowel obstruction) Current Visit: Yes Status: Acute Plan: - clear liquid diet - advance to soft diet as tolerated - serial exams - if tolerated can consider DC home in near future
[2022-02-18] MEDS: Levofloxacin500mg IV 500 MG/100 ML BAG IV SCH (11:46)
[2022-02-18 12:16] VITALS: BP 148/73; TEMP 97
--- NOTE | 2022-02-18 15:25 | P.DS ---
Discharge Date: 02/18/22 Disposition: ROUTINE DISCHARGE Discharge Condition: GOOD Reason for Admission: Small bowel obstruction - Problems (1) SBO (small bowel obstruction) Status: Acute (2) DM2 (diabetes mellitus, type 2) Status: Acute (3) HTN (hypertension) Status: Acute Brief History of Present Illness: Patient is a who presents to the emergency room with abdominal pain and intractable nausea and vomiting. Patient has been fairly healthy most of his life. 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 He has a umbilical hernia as well. Otherwise, he really does not take many medications. He has been doing well until Saturday when he started having abdominal pain and nausea and vomiting. It continued through the evening so he came into the emergency room Saturday morning. In the emergency room he had a CT scan of his abdomen pelvis performed which revealed a small bowel obstruction. It appeared patient had adhesions were a long stricture. Emergency room physician spoke to general surgery and they recommended NG tube suctioning and IV fluids. We will go ahead and admit the patient to the hospital for further evaluation. Hospital Course: Patient is clinically tolerating diet and patient feels like he is stable for discharge. Will discharge home with outpatient follow-up. Vital Signs/Physical Exam: Temp Pulse Resp BP Pulse Ox 97.0 F 75 18 148/73 H 96 02/18/22 12:00 02/18/22 12:00 02/18/22 12:00 02/18/22 12:00 02/18/22 12:00 General: Alert, In no apparent distress, Oriented x3 Laboratory Data at Discharge: WBC 9.5 K/uL (4.3-10.9) D 02/18/22 05:00 Hgb 15.4 g/dL (13.6-17.9) 02/18/22 05:00 Hct 44.7 % (39.6-49.0) 02/18/22 05:00 Plt Count 188 K/uL (152-406) D 02/18/22 05:00 PT 11.4 SECONDS (9.5-12.5) 02/17/22 06:33 INR 1.04 02/17/22 06:33 Sodium 138 mmol/L (136-145) 02/18/22 05:00 Potassium 3.5 mmol/L (3.5-5.1) 02/18/22 05:00 BUN 11 mg/dL (7-18) 02/18/22 05:00 Creatinine 0.80 mg/dL (0.55-1.3) 02/18/22 05:00 Glucose 124 mg/dL (74-106) H 02/18/22 05:00 Phosphorus 2.2 mg/dL (2.5-4.9) L 02/18/22 05:00 Magnesium 1.9 mg/dL (1.8-2.4) 02/18/22 05:00 Total Bilirubin 1.4 mg/dL (0.2-1.0) H 02/18/22 05:00 AST 20 U/L (15-37) 02/18/22 05:00 ALT 23 U/L (12-78) 02/18/22 05:00 Alkaline Phosphatase 62 U/L (45-117) 02/18/22 05:00 Lipase 55 U/L (73-393) L 02/17/22 05:45 Home Medications: Amlodipine Besylate 10 mg PO DAILY 02/17/22 Cyanocobalamin (Vitamin B-12) [Vitamin B-12] 1,000 mcg PO DAILY 02/17/22 Glimepiride 4 mg PO BID 02/17/22 LORazepam [Lorazepam] 2 mg PO BEDTIME 02/17/22 Lisinopril/Hydrochlorothiazide [Lisinopril-Hctz 20-25 mg Tab] 1 tab PO DAILY 02/17/22 Multivitamin 1 each PO DAILY 02/17/22 Pioglitazone HCl 0.5 tab PO BID 02/17/22 Red Yeast Rice 600 mg PO DAILY 02/17/22 Vitamin B Complex [Vitamin B Complex*] 1 cap PO DAILY 02/17/22 Levofloxacin [Levaquin] 500 mg PO DAILY #7 tablet 02/18/22 Metronidazole 500 mg PO Q8H #21 tablet 02/18/22 New Medications: Levofloxacin [Levaquin] 500 mg PO DAILY #7 tablet Metronidazole 500 mg PO Q8H #21 tablet Physician Discharge Instructions: -DC IV and DC home -Follow-up with PCP in 1 to 2 weeks -Follow-up with Surgery in 1 to 2 weeks -Please call Dr. Jasmine at [phone] if any questions regarding hospital stay -Please call nursing station at [phone] if any nursing or medication questions -Return to the emergency room if symptoms worsen Diet: AHA Activity: Fall precautions Followup: Kolton SAMPSON,Eliel Salazar DO [Primary Care Provider] - (Call to schedule appointment.) Jaspreet Harry MD [ACTIVE - CAN ADMIT] - (Call to schedule appointment.) Time spent managing pt's care (in minutes): 35
--- NOTE | 2022-02-20 08:03 | EKG ---
Test Date: 2022-02-17 Test Time: 07:30:32 Speech Instructor: MANN MEASUREMENT RESULTS: Intervals: Rate: 93 TN: 154 QRSD: 86 QT: 358 QTc: 445 [place]: P: 56 TN: 154 QRS: 78 T: 65 INTERPRETIVE STATEMENTS: Normal sinus rhythm Normal ECG Compared to ECG 10/18/2019 09:50:03 No significant changes Electronically Signed On 02-20-22 07:56:18 CDT by Julian Kohli
--- OUTSIDE RECORDS SUMMARY | 2022-03-07 06:38 | XMS REPORT | Continuity of Care Document ---
:1950 Author Organization [facility] t Address [address] [place] [address] Care Team Providers Name Role Phone Link Arpit TOLEDO Attending Clinician KIKI LIMON Attending Clinician Unavailable Payers Payer Name Policy Type Policy Number Effective Date Expiration Date S ource Problems Condition Condition Condition Status Onset Resolution Last Treating Co mments Source Name Details Category Date Date Treatment Clinician Date Hemangioma Hemangioma Disease Active 2017-08 B adilene , , 08-24 [place] intra-abdo intra-abdo 00:00: of sherin sherin 00 Medicin structures structures e Allergies, Adverse Reactions, Alerts This patient has no known allergies or adverse reactions. Social History Social Habit Start Date Stop Date Quantity Comments Source Sex Assigned At [facility] Co llege of Medicine Exposure to Not sure [facility] Jennifer goldstein SARS-CoV-2 of Medicine (event) Alcohol intake 2020-01-03 2020-01-03 Current drinker [facility] 00:00:00 00:00:00 of alcohol of Medicine (finding) Smoking Status Start Date Stop Date Source Former smoker 2020-01-03 00:00:00 2020-01-03 00:00:00 [facility] ollege of Medicine Medications Ordered Filled Start Stop Current Ordering Indication Dosage Frequency Signature Comments Components Source Medication Medication Date Date Medication? Clinician (SIG) Name Name Fish Yes Take by [facility] Oil-Choleca 5-04 mouth. Colleg e lciferol 19:47: of (FISH OIL + 12 Medicin D3 OR) e [place]-3 2019- No Take by [facility] r 1000 MG 5-04 05-04 mouth. College CAPS 19:47: 00:00 of 11 :00 Medicin e amlodipine Yes TK 1 T PO Ba ylor (NORVASC) 6-18 QD College 10 MG 00:00: of tablet 00 Medicin e glimepiride Yes TK 1 T PO B aylor (AMARYL) 4 6-18 BID College MG tablet 00:00: of 00 Medicin e lisinopril- Yes TK 1 T PO B aylor hydrochloro 6-18 BID College thiazide 00:00: of (PRINZIDE, 00 Medicin ZESTORETIC) e 20-25 MG per tablet lorazepam Yes TK 1 T PO Bell elyse (ATIVAN) 2 6-18 QHS PRA Colleg e MG tablet 00:00: of 00 Medicin e pioglitazon Yes TK 1 T PO B aylor e (ACTOS) 6-18 QD College 45 MG 00:00: of tablet 00 Medicin e Vital Signs Vital Name Observation Time Observation Value Comments Source Systolic blood 2019-12-21 19:41:00 158 mm[Hg] [facility] pressure Medicine Diastolic blood 2019-12-21 19:41:00 77 mm[Hg] [facility] Medicine Heart rate 2019-12-21 19:41:00 81 /min [facility] Body temperature 2019-12-21 19:41:00 36.83 [facility] Respiratory rate 2019-12-21 19:41:00 18 /min [facility] Body height 2019-12-21 19:41:00 177.8 cm [facility] Body weight 2019-12-21 19:41:00 96.163 kg [facility] BMI 2019-12-21 19:41:00 30.42 kg/m2 [facility] Systolic blood 2019-12-21 19:41:00 158 mm[Hg] [facility] pressure Medicine Diastolic blood 2019-12-21 19:41:00 77 mm[Hg] [facility] Medicine Heart rate 2019-12-21 19:41:00 81 /min [facility] Body temperature 2019-12-21 19:41:00 36.83 [facility] Respiratory rate 2019-12-21 19:41:00 18 /min [facility] Body height 2019-12-21 19:41:00 177.8 cm [facility] Body weight 2019-12-21 19:41:00 96.163 kg [facility] 2019-12-21 19:41:00 30.42 kg/m2 [facility] Procedures This patient has no known procedures. Plan of Care Planned Activity Planned Date Details Comments Source Diagnostic Test 2021-01-02 US RENAL BILATERAL Expected: [facility] Pending 00:00:00 [code = 91734] 01/02/2021, of Medicine Expires: 01/02/2021 Future Scheduled COLON CANCER [facility] ege Test SCREENING: of Medicine COLONOSCOPY [code = COLON CANCER SCREENING: COLONOSCOPY] Future Scheduled TETANUS SHOT [facility] Vince ege Test (ADULT) [code = of Medicine TETANUS SHOT (ADULT)] Future Scheduled BMI FOLLOW UP PLAN [facility] Test [code = BMI FOLLOW of Medici ne UP PLAN] Future Scheduled HEPATITIS C [facility] Vince ege Test SCREENING [code = of Medicin e HEPATITIS C SCREENING] Future Scheduled AAA Screen [code = [facility] r Sorrel Test AAA Screen] of Medicine Future Scheduled FALL SCREEN [code = [facility] Test FALL SCREEN] of Medicine Future Scheduled PNEUMOVAX >=65 [facility] Co llege Test (PPSV23) [code = of Medicine PNEUMOVAX >=65 (PPSV23)] Future Scheduled PREVNAR >= 65 [facility] Col lege Test (PCV13) [code = of Medicine PREVNAR >= 65 (PCV13)] Future Scheduled MEDICARE IPPE [facility] Col lege Test (WELCOME TO of Medicine MEDICARE) [code = MEDICARE IPPE (WELCOME TO MEDICARE)] Future Scheduled FLU VACCINE > 6 [facility] ollege Test MONTHS [code = FLU of Medici ne VACCINE > 6 MONTHS] Encounters Start End Encounter Admission Attending Care Care Encounter Source Date/Time Date/Time Type Type Clinicians Facility Department ID 2019-12-21 2019-12-21 Office Link, [facility] [id number] 23 14:26:35 15:45:13 Visit Oscar Goldstein AMBULATOR [id number] Y [id number] 300 2019-12-21 2019-12-21 Office Link, [facility] [id number] 23 [facility] 14:26:35 15:45:13 Visit Oscar Goldstein AMBULATOR [id number] College Y [id number] of [id number] [facility] 300 e Results Test Description Test Time Test Comments Results Result [facility] e Comments CT, ABDOMEN 2018-11-25 FINAL REPORT PATIENT 12:33:00 ID: [id number] TECHNIQUE: CT of the abdomen and pelvis [...] MDReport Verified Date/Time: 11/25/2018 12:33:17 Reading Location: [facility] C013[facility] Reading Room -CREATININE 2018-11-25 10:33:00 Test Item Value Reference Range Interpretation Comme [facility] POC-CREATININE ([facility]) (test 0.9 mg/dL 0.6-1.3 TESTED AT [facility] 7200 code = 1859) [facility] [id number] POC-EGFR (AKER) (test code = 83 mL/min/1.73M2 1860) MIBG, TUMOR LOCAL, WB, SINGLE [id number] 15:01:00Para aortic mass, suspicious of parargangliomaFINAL REPORT PROCEDURE: MIBG SCAN - Tumor Localization CPT CODE: 97500, [id number] INDICATION: Para-aortic mass, suspicious for paraganglioma PROTOCOL: [...] adrenal medulla versus additionalneoplasm. Signed: Diamond Mccollum MDReport Verified Date/Time: 05/01/2018 15:01:04 Reading Location: [address] [address] [facility] Reading Room
== END 2022-02-18 13:16 | disposition home or self-care (01) | DRG 390 ==
LOC: ER 04:33 → ERHOLD 10:35 → 2ND 11:21
PROVIDERS: ADMIT Hospitalist; ATTEND Hospitalist
DX: K56.50 Intestinal adhesions [bands], unspecified as to partial versus complete obstruction (principal); K42.9 Umbilical hernia without obstruction or gangrene; K40.20 Bilateral inguinal hernia, without obstruction or gangrene, not specified as recurrent; M54.9 Dorsalgia, unspecified; E11.9 Type 2 diabetes mellitus without complications; I10 Essential (primary) hypertension; Z20.822 Contact with and (suspected) exposure to COVID-19
CPT/HCPCS: 36415; 71045; 74022; 74177; 80053; 82947; 83605; 83690; 83735; 83880; 84100; 84484; 85025; 85610; 93005; 96361; 96365; 96366; 96367; 96375; 99285; J1650; J2270; J2405; J2543; J3475; J3490; J7030; Q9967; U0003

== ENCOUNTER 2022-12-29 14:41 | Emergency (ER) | payer OTHER ==
--- OUTSIDE RECORDS SUMMARY | 2022-12-29 15:00 | XMS REPORT | Continuity of Care Document ---
:1950 Author Organization [facility] t Address [address] [facility] [address] [place] [address] Care Team Providers Name Role Phone No, Pcp [facility] Primary Care Physician Unavailable Oscar Oneill MD Attending Clinician OSCAR ONEILL Attending Clinician Unavailable Payers Payer Name Policy Type Policy Number Effective Date Expiration Date S ource Problems Condition Condition Condition Status Onset Resolution Last Treating Co mments Source Name Details Category Date Date Treatment Clinician Date Hemangioma Hemangioma Disease Active 2017- B adilene , , 1-06 [place] intra-abdo intra-abdo 00:00: of sherin sherin 00 Medicin structures structures e Periaortic Periaortic Disease Active 2018-1 M ethodi mass mass 0-10 [facility] 00[facility]: Hospita 00 l S/P lumbar S/P lumbar Disease Active 2017-0 M ethodi fusion fusion - 00:00: Hospita 00 l S/P lumbar S/P lumbar Disease Active 2016-0 M ethodi laminectom laminectom - st y y 00:00: Hospita 00 l Allergies, Adverse Reactions, Alerts This patient has no known allergies or adverse reactions. Family History Family Member Diagnosis Comments Start Date Stop Date Source Natural father Cirrhosis [facility] Natural mother Cancer [facility] Social History Social Habit Start Date Stop Date Quantity Comments Source Exposure to Not sure [employer] [place] SARS-CoV-2 (event) of Med icine History of tobacco Chews Tobacco Met [facility] Gender identity [facility] Sexual orientation [facility] History of Social 2019-04-05 2019-04-[address] function 00:00:00 00:00:00 Hospital Alcohol intake 2018-05-30 2018-05-30 Current drinker [facility] 00:00:00 00:00:00 of alcohol Hospital (finding) Alcohol Comment 2016-02-03 2016-02-03 occasional [facility] 00:00:00 00:00:00 Hospital Cigarettes smoked 2016-02-03 2016-02-[address] current (pack per 00:00:00 00:00:00 Hospita l day) - Reported Cigarette 2016-02-03 2016-02-03 [facility] pack-years 00:00:00 00:00:00 Hospital Tobacco use and 2016-02-03 2016-02-03 User of smokeless [facility] exposure 00:00:00 00:00:00 tobacco Hospital Sex Assigned At [birth year] [facility] 00:00:00 00:00:00 Hospital Smoking Status Start Date Stop Date Source Former smoker 2020-01-03 00:00:00 2020-01-03 00:00:00 [facility] Medications Ordered Filled Start Stop Current Ordering Indication Dosage Frequency Signature Comments Components Source Medication Medication Date Date Medication? Clinician (SIG) Name Name Fish Yes Take by [facility] Oil-Choleca 5-04 mouth. Colleg e lciferol 19:47: of (FISH OIL + 12 Medicin D3 OR) e [place]ard-3 2019- No Take by [facility] [place] 1000 MG 5-04 05-04 mouth. College CAPS 19:47: 00:00 of 11 :00 Medicin e LORAZepam 2017-08 Yes 2mg QD Take 2 mg Met hodi (ATIVAN) 2 0-[address] MG tablet 14:53: nightly. Hosp mary 18 l lisinopril- 2017-08 Yes 1{tbl} QD Take 1 Me thodi hydrochloro 0-[address] thiazide 14:53: mouth Hospita (PRINZIDE,Z 18 every l ESTORETIC) morning. 20-25 mg per tablet glimepiride 2017-08 Yes 4mg Q.5D Take 4 mg M ethodi (AMARYL) 4 0-[address] MG tablet 14:53: (two) Hospita 18 times a l day. amLODIPine 2017-08 Yes 10mg QD Take 10 mg M ethodi (NORVASC) 0-[address] 10 MG 14:53: every Hospita tablet 18 morning. l Take the am of surgery pioglitazon 2017-08 Yes 45mg QD Take 45 mg Methodi e (ACTOS) 0-[address] 45 MG 14:53: daily. Hospita tablet 18 l omega 2017-08 Yes Take by Methodi 3-dha-epa-f 0-[address] darian oil 14:53: Hospita (FISH OIL) 18 l 1,000 mg (120 mg-180 mg) capsule traZODone 2017-08 Yes 50mg QD Take 50 mg Me thodi (DESYREL) 0-[address] 50 MG 14:53: nightly. Hospita tablet 18 l multivitami 2017-08 Yes 1{tbl} QD Take 1 Me thodi n with 0-[address] minerals 14:53: mouth Hospita tablet 18 daily. l amlodipine Yes TK 1 T PO Ba [...] tablet lorazepam Yes TK 1 T PO Mellen elyse (ATIVAN) 2 6-18 QHS PRA Colleg e MG tablet 00:00: of 00 Medicin e pioglitazon Yes TK 1 T PO B aylor e (ACTOS) 6-18 QD College 45 MG 00:00: of tablet 00 Medicin e Immunizations Ordered Immunization Filled Immunization Date Status Commen ts Source Name Name Pneumococcal 2018-05-29 Completed [facility] Conjugate 13-Valent 00:00:00 Hospi flor Vital Signs Vital Name Observation Time Observation Value Comments Source Systolic blood 2019-12-21 19:41:00 158 mm[Hg] [facility] Medicine Diastolic blood 2019-12-21 19:41:00 77 mm[Hg] [facility] Medicine Heart rate 2019-12-21 19:41:00 81 /min [facility] ollege [facility] Body temperature 2019-12-21 19:41:00 36.83 [facility] Respiratory rate 2019-12-21 19:41:00 18 /min [facility] Body height 2019-12-21 19:41:00 177.8 cm [facility] Body weight 2019-12-21 19:41:00 96.163 kg [facility] BMI 2019-12-21 19:41:00 30.42 kg/m2 [facility] Systolic blood 2019-12-21 19:41:00 158 mm[Hg] [facility] Medicine Diastolic blood 2019-12-21 19:41:00 77 mm[Hg] [facility] Medicine Heart rate 2019-12-21 19:41:00 81 /min [facility] Body temperature 2019-12-21 19:41:00 36.83 [facility] Respiratory rate 2019-12-21 19:41:00 18 /min [facility] Body height 2019-12-21 19:41:00 177.8 cm [facility] Body weight 2019-12-21 19:41:00 96.163 kg [facility] BMI 2019-12-21 19:41:00 30.42 kg/m2 [facility] Procedures This patient has no known procedures. Plan of Care Planned Activity Planned Date Details Comments Source Future Scheduled 2022-11-22 COVID-[address] Test 04:08:32 (#1) [code = Hospital COVID-19 VACCINE (#1)] Future Scheduled 2022-11-22 COLONOSCOPY [facility] Test 04:08:32 SCREENING [code = Hospital COLONOSCOPY SCREENING] Future Scheduled 2022-11-22 SHINGLES VACCINES (1 [facility] Test 04:08:32 of 2) [code = Hospital SHINGLES VACCINES (1 of 2)] Future Scheduled 2022-11-22 65+ PNEUMOCOCCAL [facility] Test 04:08:32 VACCINE (2 - PPSV23 Hospital if available, else PCV20) [code = 65+ PNEUMOCOCCAL VACCINE (2 - PPSV23 if available, else PCV20)] Future Scheduled 2022-11-22 INFLUENZA VACCINE Method ist Test 04:08:32 [code = INFLUENZA Hospital VACCINE] Diagnostic Test 2021-01-02 US RENAL BILATERAL Expected: [facility] Pending 00:00:00 [code = 44716] 01/02/2021, of Medicine Expires: 01/02/2021 Future Scheduled COLON CANCER [facility] Vince ege Test SCREENING: of Medicine COLONOSCOPY [code = COLON CANCER SCREENING: COLONOSCOPY] Future Scheduled TETANUS SHOT (ADULT) M[facility]se College Test [code = TETANUS SHOT of Medi cine (ADULT)] Future Scheduled BMI FOLLOW UP PLAN [facility] r College Test [code = BMI FOLLOW of Medici ne UP PLAN] Future Scheduled HEPATITIS C [facility] Vince ege Test SCREENING [code = of Medicin e HEPATITIS C SCREENING] Future Scheduled AAA Screen [code = [facility] Test AAA Screen] of Medicine Future Scheduled FALL SCREEN [code = [facility] [place] Test FALL SCREEN] of Medicine Future Scheduled PNEUMOVAX >=65 [facility] Co llege Test (PPSV23) [code = of Medicine PNEUMOVAX >=65 (PPSV23)] Future Scheduled PREVNAR >= 65 [facility] Col lege Test (PCV13) [code = of Medicine PREVNAR >= 65 (PCV13)] Future Scheduled MEDICARE IPPE [facility] Col lege Test (WELCOME TO of Medicine MEDICARE) [code = MEDICARE IPPE (WELCOME TO MEDICARE)] Future Scheduled FLU VACCINE > 6 [facility] C ollege Test MONTHS [code = FLU of Medici ne VACCINE > 6 MONTHS] Encounters Start End Encounter Admission Attending Care Care Encounter Source Date/Time Date/Time Type Type Clinicians Facility Department ID 2019-12-21 2019-12-21 Office Link, [facility] [id number] 14:26:35 15:45:13 Visit Oscar Munson AMBULATOR 350.1.13.21 Y [id number] [id number] 2019-12-21 2019-12-21 Office Link, [facility] [id number] [facility] 14:26:35 15:45:13 Visit Oscar Munson AMBULATOR 350.1.13.21 College Y [id number] of [id number] Medi nabila 300 e Results Test Description Test Time Test Comments Results Result [facility] e Comments CT, ABDOMEN 2018-11-25 FINAL REPORT PATIENT 12:33:00 ID: [id number] TECHNIQUE: CT of the abdomen and pelvis [...] MDReport Verified Date/Time: 11/25/2018 12:33:17 Reading Location: [facility] C013T [facility] Reading Room -CREATININE 2018-11-25 10:33:00 Test Item Value Reference Range Interpretation Comme nts POC-CREATININE (BEAKER) (test 0.9 mg/dL 0.6-1.[address] [facility] 7200 code = 1859) [facility] [address] POC-EGFR (BEAKER) (test code = 83 mL/min/1.73M2 1860) MIBG, TUMOR LOCAL, WB, SINGLE [id number] 15:01:00Para aortic mass, suspicious of parargangliomaFINAL REPORT PROCEDURE: MIBG SCAN - Tumor Localization CPT CODE: [id number], [id number] INDICATION: Para-aortic mass, suspicious for paraganglioma PROTOCOL: 10.9 mCi of I-123 MIBG was injected intravenously. Images were obtained approximately 19 hours after tracer injection and included whole body and spot images as well as tomographic images of the abdomen and pelvis. FINDINGS: Increased tracer activity involving left adrenal that correlates with the 2.9 cm periaortic mass seen on MRI 03/03/2018. There is also increased tracer activity involving the right adrenal however this is less inte nse than the adjacent liver and may represent normal adrenal medulla. Tracer distribution is otherwise physiological. IMPRESSION: Abnormal MIBG scan. 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 Signed: Tyler Mccollum MDReport Verified Date/Time: 05/01/2018 15:01:04 Reading Location: [address] [address] [facility] Reading Room
[2022-12-29] MEDS ORDERED: HYDROCODONE/APAP 7.5/325 MG TAB ONE (15:21)
[2022-12-29] MEDS ORDERED: TETANUS & DIPHTHERIA TOX,ADULT 0.5 ML VIAL ONE (15:21)
[2022-12-29] MEDS ORDERED: BUPIVACAINE 0.5% PF 10 ML VIAL ONE (16:07)
[2022-12-29] MEDS ORDERED: LIDOCAINE 2% W/EPI 1:200,000 MPF 20 ML VIAL IM ONE (16:07)
--- NOTE | 2022-12-29 16:45 | RAD REPORT ---
EXAM DESCRIPTION: RAD - Tib Fib Left - 12/29/2022 4:27 pm CLINICAL HISTORY: laceration injury COMPARISON: No comparisonsNo comparisons FINDINGS/IMPRESSION: No acute fracture. No malalignment. No significant focal degenerative changes. Peripheral vascular calcifications.
--- NOTE | 2022-12-29 17:15 | ER ---
Nurse's Notes [facility] Name: Harrison Arriaza Age: 72 yrs Sex: Male : 1950 Arrival Date: 12/29/2022 Time: 14:41 Bed 15 Private MD: Diagnosis: Laceration without foreign body of lower leg-left Presentation: 12/29 15:07 Chief complaint: Patient states: "I was carrying old metal stuff and it hurt my foot". aa5 pt c/o pain to left foot. Onset of symptoms was December 2022. 15:07 Acuity: SHARAN 4 aa5 15:07 Method Of Arrival: Wheelchair aa5 15:07 Coronavirus screen: At this time, the client does not indicate any symptoms associated aa5 with coronavirus-19. Ebola Screen: Patient denies travel to an Ebola-affected area in the 21 days before illness onset. Initial Sepsis Screen: Does the patient meet any 2 criteria? No. Patient's initial sepsis screen is negative. Does the patient have a suspected source of infection? No. Patient's initial sepsis screen is negative. Risk Assessment: Do you want to hurt yourself or someone else? Patient reports no desire to harm self or others. Historical: - Allergies: 15:08 No Known Allergies; aa5 - PMHx: 15:08 Diabetes - NIDDM; Hypertension; aa5 - Immunization history:: Last tetanus immunization: unknown. - Social history:: Smoking status: Patient denies any tobacco usage or history of. Screenin:23 [facility] ED Fall Risk Assessment (Adult) History of falling in the last 3 months, kc6 including since admission Yes- single mechanical fall (1 pt) Confusion or Disorientation No (0 pts) Intoxicated or Sedated No (0 pts) Impaired Gait No (0 pts) Mobility Assist Device Used No (0 pt) Altered Elimination No (0 pt) Score/Fall Risk Level 0 - 2 = Low Risk Oriented to surroundings, Maintained a safe environment, Educated pt \\T\\ family on fall prevention, incl call for assistance when getting out of bed, Assessed \\T\\ reinforced patient's understanding of fall precautions, Hourly rounding (assess needs \\T\\ fall precautionary measures) done. Abuse screen: Denies threats or abuse. Denies injuries from another. Nutritional screening: No deficits noted. Tuberculosis screening: No symptoms or risk factors identified. Assessment: 15:23 General: Appears in no apparent distress. uncomfortable, Behavior is calm, cooperative, kc6 appropriate for age. Pain: Complains of pain in left foot. Neuro: Harper Agitation-Sedation Scale (RASS): 0 - Alert and Calm Level of Consciousness is awake, alert, obeys commands, Oriented to person, place, time, situation, Appropriate for age. Cardiovascular: Capillary refill < 3 seconds. Respiratory: Airway is patent Trachea midline Respiratory effort is even, unlabored, Respiratory pattern is regular, symmetrical. GI: No signs and/or symptoms were reported involving the gastrointestinal system. : No signs and/or symptoms were reported regarding the genitourinary system. EENT: No signs and/or symptoms were reported regarding the EENT system. Derm: Skin is pink, warm \\T\\ dry. Wound noted dorsum of left foot. Musculoskeletal: No signs and/or symptoms reported regarding the musculoskeletal system. Circulation, motion, and sensation intact. Capillary refill < 3 seconds, Range of motion: intact in all extremities. 16:16 Reassessment: Patient appears in no apparent distress at this time. No changes from kc6 previously documented assessment. Patient and/or family updated on plan of care and expected duration. Pain level reassessed. Patient is alert, oriented x 3, equal unlabored respirations, skin warm/dry/pink. 17:13 Reassessment: Patient appears in no apparent distress at this time. No changes from kc6 previously documented assessment. Patient and/or family updated on plan of care and expected duration. Pain level reassessed. Patient is alert, oriented x 3, equal unlabored respirations, skin warm/dry/pink. Vital Signs: 15:07 BP 135 / 61; Pulse 81; Resp 18 S; Temp 98(TE); Pulse Ox 95% on R/A; aa5 16:16 BP 126 / 66; Pulse 64; Resp 19 S; Pulse Ox 100% on R/A; kc6 17:13 BP 158 / 79; Pulse 74; Resp 18 S; Pulse Ox 97% on R/A; kc6 ED Course: 14:42 Patient arrived in ED. ts1 14:43 Dg Stephens PA is PHCP. cp 14:43 Pineda Guevara MD is Attending Physician. cp 15:07 Arm band placed on. aa5 15:08 Triage completed. aa5 15:09 Keyona Spear, RN is Primary Nurse. kc6 15:24 Patient has correct armband on for positive identification. Bed in low position. Call kc6 light in reach. Side rails up X 1. Adult w/ patient. 16:29 XRAY Tib Fib LEFT In Process Unspecified. EDMS 17:30 No provider procedures requiring assistance completed. Patient did not have IV access kc6 during this emergency room visit. Administered Medications: 15:21 Drug: Tetanus-Diphtheria Toxoid IM Adult 0.5 ml {Retort Load Expediter: Zenter. Exp: kc6 01/26/2023. Lot #: [id number]. } Route: IM; Site: right deltoid; 16:48 Follow up: Response: No adverse reaction kc6 15:22 Drug: Hydrocodone-Acetaminophen PO (7.5 mg-325 mg) 1 tabs Route: PO; kc6 16:48 Follow up: Response: No adverse reaction; Pain is decreased; RASS: Alert and Calm (0) kc6 16:13 Drug: Bupivacaine Infiltration (0.5 %) 5 ml {Note: to bedside.} Volume: 10 ml; Route: kc6 Infiltration; 16:49 Follow up: Response: No adverse reaction; Pain is decreased kc6 16:14 Drug: Lidocaine-Epinephrine Infiltration -1%: (1:100,000) 5 ml {Note: to bedside.} kc6 Volume: 20 ml; Route: Infiltration; 16:49 Follow up: Response: No adverse reaction; Pain is decreased kc6 Medication: 17:30 VIS not applicable for this client. kc6 Outcome: 17:15 Discharge ordered by MD. kaur 17:30 Discharged to home via wheelchair, with family, with significant other. kc6 17:30 Condition: improved 17:30 Discharge instructions given to patient, Instructed on discharge instructions, follow up and referral plans. medication usage, Demonstrated understanding of instructions, follow-up care, medications, Prescriptions given X 2. 17:30 Patient left the ED. kc6 Signatures: Dispatcher [employer] EDDelphine Crook RN RN aa5 Dg Stephens, Keyona Austin cp, RN RN kc6 Jocelyn De La Torre PAS PAS ts1
--- NOTE | 2022-12-29 17:15 | EDPHYS ---
Physician Documentation [facility] Name: Harrison Arriaza Age: 72 yrs Sex: Male : 1950 Arrival Date: 12/29/2022 Time: 14:41 Bed 15 Private MD: ED Physician Pineda Guevara HPI: 12/29 15:05 This 72 yrs old Male presents to ER via Wheelchair with complaints of Fall Injury. cp 15:05 The patient presents with an injury, a laceration, irregular. cp 15:05 The complaints affect the anterior aspect left lower leg. Context: resulted from direct cp blow by sharp edge of piece of metal. Onset: The symptoms/episode began/occurred just prior to arrival. Associated signs and symptoms: Pertinent positives: heavy bleeding. Treatment prior to arrival includes: pressure dressing too area. Historical: - Allergies: 15:08 No Known Allergies; aa5 - PMHx: 15:08 Diabetes - NIDDM; Hypertension; aa5 - Immunization history:: Last tetanus immunization: unknown. - Social history:: Smoking status: Patient denies any tobacco usage or history of. ROS: 15:10 Skin: Positive for laceration(s), of the anterior aspect left lower leg. cp 15:10 Constitutional: Negative for fever, poor PO intake. cp 15:10 Respiratory: Negative for cough, shortness of breath, wheezing. 15:10 Eyes: Negative for injury, pain, redness, and discharge. cp 15:10 ENT: Negative for drainage from ear(s), ear pain, sore throat, difficulty swallowing, difficulty handling secretions. 15:10 Cardiovascular: Negative for chest pain, palpitations. 15:10 Abdomen/GI: Negative for abdominal pain, nausea, vomiting, and diarrhea. 15:10 Neuro: Negative for altered mental status, dizziness, headache, weakness. cp 15:10 All other systems are negative. Exam: 15:15 Constitutional: The patient appears in no acute distress, alert, awake, non-toxic, well cp developed, well nourished, uncomfortable. 15:15 Head/Face: Normocephalic, atraumatic. cp 15:15 Chest/axilla: Inspection: normal. 15:15 Cardiovascular: Rate: normal, Rhythm: regular, Pulses: Pulses are 2+ in left dorsalis pedis artery. 15:15 Respiratory: the patient does not display signs of respiratory distress, Respirations: normal, no use of accessory muscles, no retractions, labored breathing, is not present. 15:15 Abdomen/GI: Inspection: 15:15 Back: pain, is absent. 15:15 Musculoskeletal/extremity: Extremities: grossly normal except: noted in the anterior aspect left lower leg: laceration, pain, tenderness, mild swelling, mild bleeding, ROM: full active range of motion, in the left ankle, Perfusion: the extremity is normally perfused throughout, the left foot and left lower leg Sensation intact. Vital Signs: 15:07 BP 135 / 61; Pulse 81; Resp 18 S; Temp 98(TE); Pulse Ox 95% on R/A; aa5 16:16 BP 126 / 66; Pulse 64; Resp 19 S; Pulse Ox 100% on R/A; kc6 17:13 BP 158 / 79; Pulse 74; Resp 18 S; Pulse Ox 97% on R/A; kc6 Laceration: 17:20 Wound Repair of 3cm ( 1.2in ) subcutaneous laceration to anterior aspect lower left leg. Linear shaped.. Distal neuro/vascular/tendon intact. Anesthesia: Wound infiltrated with 6 mls of 2% lidocaine. Wound prep: Moderate cleansing by me, Wound irrigation by me. Skin closed with 4 4-0 Prolene using interrupted sutures and sterile technique. Dressed with Bacitracin, 4x4's. Patient tolerated well. MDM: 14:53 Patient medically screened. 16:00 Differential diagnosis: open fracture, contusion, fracture, tendon injury. 17:15 Data reviewed: vital signs, nurses notes, radiologic studies, plain films. 17:15 I considered the following discharge prescriptions or medication management in the emergency department Medications were administered in the Emergency Department. See MAR. Independent interpretation of the following test(s) in the Emergency Department X-Ray: My interpretation is left tib/fib negative for fracture. Counseling: I had a detailed discussion with the patient and/or guardian regarding: the historical points, exam findings, and any diagnostic results supporting the discharge/admit diagnosis, radiology results, the need for outpatient follow up, a family practitioner, to return to the emergency department if symptoms worsen or persist or if there are any questions or concerns that arise at home. Response to treatment: the patient's symptoms have markedly improved after treatment, and as a result, I will discharge patient. 12/29 15:23 Order name: XRAY Tib Fib LEFT; Complete Time: 16:48 cp 12/29 16:49 Interpretation: Report reviewed. 12/29 15:54 Order name: Dressing - Wound; Complete Time: 16:05 cp 12/29 15:54 Order name: Gloves, Sterile; Complete Time: 16:05 cp 12/29 15:54 Order name: Setup Suture Tray; Complete Time: 16:05 cp Administered Medications: 15:21 Drug: Tetanus-Diphtheria Toxoid IM Adult 0.5 ml {Scrum Project Manager: [employer]. Exp: kc6 01/26/2023. Lot #: [id number]. } Route: IM; Site: right deltoid; 16:48 Follow up: Response: No adverse reaction kc6 15:22 Drug: Hydrocodone-Acetaminophen PO (7.5 mg-325 mg) 1 tabs Route: PO; kc6 16:48 Follow up: Response: No adverse reaction; Pain is decreased; RASS: Alert and Calm (0) kc6 16:13 Drug: Bupivacaine Infiltration (0.5 %) 5 ml {Note: to bedside.} Volume: 10 ml; Route: kc6 Infiltration; 16:49 Follow up: Response: No adverse reaction; Pain is decreased kc6 16:14 Drug: Lidocaine-Epinephrine Infiltration -1%: (1:100,000) 5 ml {Note: to bedside.} kc6 Volume: 20 ml; Route: Infiltration; 16:49 Follow up: Response: No adverse reaction; Pain is decreased kc6 Disposition Summary: 12/29/22 17:15 Discharge Ordered Location: Home cp Problem: new cp Symptoms: have improved cp Condition: Stable cp Diagnosis - Laceration without foreign body of lower leg - left cp Followup: cp - With: Private Physician - When: 10 - 14 days - Reason: Staple/Suture removal Discharge Instructions: - Discharge Summary Sheet cp - Laceration Care, Adult cp - Sutured Wound Care cp Forms: - Medication Reconciliation Form cp - Thank You Letter cp - Antibiotic Education cp - Prescription Opioid Use cp Prescriptions: - Cephalexin 500 mg Oral Capsule - take 1 capsule by ORAL route every 6 hours for 7 days; 28 capsule; Refills: 0, cp Product Selection Permitted - Ibuprofen 800 mg Oral Tablet - take 1 tablet by ORAL route every 8 hours As needed take with food; 30 tablet; cp Refills: 0, Product Selection Permitted Signatures: Dispatcher [employer] Delphine Otto, RN RN aa5 Dg Stephens PA PA cp Campbell, Kaitlyn RN RN kc6
[2022-12-29 17:50] VITALS: TEMP 98
[2022-12-29 17:53] VITALS: BP 158/79; O2SAT 97
== END 2022-12-29 17:30 | disposition home or self-care (01) ==
LOC: ER 14:41
PROC: 0HQLXZZ Repair Left Lower Leg Skin, External Approach (ICD-10-PCS; principal; 2022-12-29)
DX: S81.812A Laceration without foreign body, left lower leg, initial encounter (principal); Z23 Encounter for immunization
CPT/HCPCS: 90471; 90714; 99284

== ENCOUNTER 2023-01-09 10:49 | Emergency (ER) | payer OTHER ==
--- OUTSIDE RECORDS SUMMARY | 2023-01-09 10:53 | XMS REPORT | Continuity of Care Document ---
:1950 Author Organization [facility] t Address [address] [place] [address] Care Team Providers Name Role Phone Eliel Hi DO Primary Care Physician Oscar Oneill MD Attending Clinician OSCAR ONEILL Attending Clinician Unavailable Payers Payer Name Policy Type Policy Number Effective Date Expiration Date S ource Problems Condition Condition Condition Status Onset Resolution Last Treating Co mments Source Name Details Category Date Date Treatment Clinician Date Hemangioma Hemangioma Disease Active 2017- B [place] , , - [place] intra-abdo intra-abdo 00:00: of sherin sherin 00 Medicin structures structures e Periaortic Periaortic Disease Active 2017- M ethodi mass mass 0-10 st 00:00: [...] Date Stop Date Source Natural father Cirrhosis [facility] Natural mother Cancer [facility] Social History Social Habit Start Date Stop Date Quantity Comments Source History of tobacco Chews Tobacco [facility] use [facility] Exposure to Not sure Yohannes goldstein SARS-CoV-2 (event) of Med icine [facility] History of Social 2019-04-05 2019-04-[address] function 00:00:00 00:00:00 Hospital Alcohol intake 2018-05-30 2018-05-30 Current drinker [facility] 00:00:00 00:00:00 of alcohol Hospital (finding) Tobacco use and 2016-02-03 2016-02-03 User of smokeless [facility] exposure 00:00:00 00:00:00 tobacco Hospital Alcohol Comment 2016-02-03 2016-02-03 occasional [facility] 00:00:00 00:00:00 Hospital Cigarettes smoked 2016-02-03 2016-02-[address] current (pack per 00:00:00 00:00:00 Hospita l day) - Reported Cigarette 2016-02-03 2016-02-03 [facility] pack-years 00:00:00 00:00:00 Hospital Sex Assigned At [address] [facility] 00[facility] Smoking Status Start Date Stop Date Source Former smoker 2020-01-03 00:00:00 2020-01-03 00:00:00 [facility] Medicine Medications Ordered Filled Start Stop Current Ordering Indication Dosage Frequency Signature Comments Components Source Medication Medication Date Date Medication? Clinician (SIG) Name Name Fish Yes Take by [facility] Oil-Choleca 5-04 mouth. Colleg e lciferol 19:47: of (FISH OIL + 12 Medicin D3 OR) e [place]-3 2019- No Take by [facility] 1000 MG 5-04 05-04 mouth. College CAPS 19:47: 00:00 of 11 :00 Medicin e pioglitazon 2017-08 Yes 45mg QD Take 45 [...] 14:53: mouth Hospita tablet 18 daily. l LORAZepam 2017-08 Yes 2mg QD Take 2 [...] (two) Hospita 18 times a l day. LORAZepam 2017-08 Yes 2mg QD Take 2 [...] MG 14:53: daily. Hospita tablet 18 l amLODIPine 2017-08 Yes 10mg QD Take 10 mg M ethodi (NORVASC) 0-[address] 10 MG 14:53: every Hospita tablet 18 morning. l Take the am of surgery omega 2017-08 Yes Take by Method[facility] 3-dha-epa-f [...] tablet lorazepam Yes TK 1 T PO [place] (ATIVAN) 2 6-18 QHS PRA Colleg e MG tablet 00:00: of 00 Medicin e pioglitazon Yes TK 1 T PO B aylor e (ACTOS) 6-18 QD College 45 MG 00:00: of tablet 00 Medicin e Immunizations Ordered Immunization Filled Immunization Date Status Commen ts Source Name Name Pneumococcal 2018-05-29 Completed [facility] Conjugate 13-Valent 00:00:00 Hospi flor Pneumococcal 2018-05-29 Completed [facility] Conjugate 13-Valent 00:00:00 [facility] Vital Signs Vital Name Observation Time Observation Value Comments Source Systolic blood 2019-12-21 19:41:00 158 mm[Hg] [facility] of pressure Medicine Diastolic blood 2019-12-21 19:41:00 77 mm[Hg] [facility] of pressure Medicine Heart rate 2019-12-21 19:41:00 81 /min [facility] Body temperature 2019-12-21 19:41:00 36.83 [facility] Respiratory rate 2019-12-21 19:41:00 18 /min [facility] Body height 2019-12-21 19:41:00 177.8 cm [facility] Body weight 2019-12-21 19:41:00 96.163 kg [facility] ollege [facility] BMI 2019-12-21 19:41:00 30.42 kg/m2 [facility] Systolic blood 2019-12-21 19:41:00 158 mm[Hg] [facility] pressure Medicine Diastolic blood 2019-12-21 19:41:00 77 mm[Hg] [facility] Medicine Heart rate 2019-12-21 19:41:00 81 /min [facility] Body temperature 2019-12-21 19:41:00 36.83 [facility] Respiratory rate 2019-12-21 19:41:00 18 /min [facility] Body height 2019-12-21 19:41:00 177.8 cm [facility] Body weight 2019-12-21 19:41:00 [facility] BMI 2019-12-21 19:41:00 30.42 kg/m2 [facility] Procedures This patient has no known procedures. Plan of Care Planned Activity Planned Date Details Comments Source Future Scheduled 2023-01-09 COVID-[address] Test 10:53:03 (#1) [code = Hospital COVID-19 VACCINE (#1)] Future Scheduled 2023-01-09 COLONOSCOPY [facility] Test 10:53:03 SCREENING [code = Hospital COLONOSCOPY SCREENING] Future Scheduled 2023-01-09 SHINGLES VACCINES (1 [facility] Test 10:53:03 of 2) [code = Hospital SHINGLES VACCINES (1 of 2)] Future Scheduled 2023-01-09 65+ PNEUMOCOCCAL [facility] Test 10:53:03 VACCINE (2 - PPSV23 Hospital if available, else PCV20) [code = 65+ PNEUMOCOCCAL VACCINE (2 - PPSV23 if available, else PCV20)] Future Scheduled 2023-01-09 INFLUENZA VACCINE Method [facility] Test 10:53:03 [code = INFLUENZA Hospital VACCINE] Future Scheduled 2022-11-22 COVID-[address] Test 04:08:32 (#1) [code = Hospital COVID-19 VACCINE (#1)] Future Scheduled 2022-11-22 COLONOSCOPY [facility] Test 04:08:32 SCREENING [code = Hospital COLONOSCOPY [...] Diagnostic Test 2021-01-02 US RENAL BILATERAL Expected: [facility] College Pending 00:00:00 [code = 10336] 01/02/2021, of Medicine Expires: 01/02/2021 Future Scheduled COLON CANCER [facility] ege Test SCREENING: of Medicine COLONOSCOPY [code = COLON CANCER SCREENING: COLONOSCOPY] Future Scheduled TETANUS SHOT (ADULT) [facility] College Test [code = TETANUS SHOT of Medi cine (ADULT)] Future Scheduled BMI FOLLOW UP PLAN [facility] College Test [code = BMI FOLLOW of Medici ne UP PLAN] Future Scheduled HEPATITIS C [facility] Vince ege Test SCREENING [code = of Medicin e HEPATITIS C SCREENING] Future Scheduled AAA Screen [code = [facility] [place] Test AAA Screen] of Medicine Future Scheduled FALL SCREEN [code = [facility] or [place] Test FALL SCREEN] of Medicine Future Scheduled PNEUMOVAX >=65 [facility] Co llege Test (PPSV23) [code = of Medicine PNEUMOVAX >=65 (PPSV23)] Future Scheduled PREVNAR >= 65 [facility] Col lege Test (PCV13) [code = of Medicine PREVNAR >= 65 (PCV13)] Future Scheduled MEDICARE IPPE [facility] Col lege Test (WELCOME TO of Medicine MEDICARE) [code = MEDICARE IPPE (WELCOME TO MEDICARE)] Future Scheduled FLU VACCINE > 6 [facility] C ollege Test MONTHS [code = FLU of Medici ne VACCINE > 6 MONTHS] Encounters Start End Encounter Admission Attending Care Care Encounter Source Date/Time Date/Time Type Type Clinicians Facility Department ID 2019-12-21 2019-12-21 Office Link, [facility] [id number] [facility] 14:26:35 15:45:13 Visit Oscar Goldstein AMBULATOR [id number] College Y [id number] of [id number] [facility] 300 e 2019-12-21 2019-12-21 Office Link, [facility] [id number] 23 14:26:35 15:45:13 Visit Oscar Goldstein AMBULATOR [id number] Y [id number] Results Test Description Test Time Test Comments Results Result Timmy triston Comments CT, ABDOMEN 2018-11-25 FINAL REPORT PATIENT 12:33:00 ID: [id number] TECHNIQUE: CT of the abdomen and pelvis [...] MDReport Verified Date/Time: 11/25/2018 12:33:17 Reading Location: [facility] C013 Transitional Reading Room -CREATININE 2018-11-25 10:33:00 Test Item Value Reference Range Interpretation Comme [facility] POC-CREATININE ([facility]) (test 0.9 mg/dL 0.6-1.3 TESTED AT [facility] 7200 code = 1859) [facility] A [facility] [id number] POC-EGFR ([facility]) (test code = 83 mL/min/1.73M2 1860) MIBG, TUMOR LOCAL, WB, SINGLE [id number] 15:01:00Para aortic mass, suspicious of parargangliomaFINAL REPORT PROCEDURE: MIBG SCAN - Tumor Localization CPT CODE: 45416, 80907 INDICATION: Para-aortic mass, suspicious for paraganglioma PROTOCOL: 10.9 mCi of I-123 MIBG was injected intravenously. Images were obtained approximately 19 hours after tracer injection and included whole body and spot images as well as tomographic images of the abdomen and pelvis. FINDINGS: Increasedtracer activity involving left adrenal that correlates with the 2.9 cm periaortic mass seen on MRI 03/03/2018. There is also increased tracer activity involving the right adrenal however this is less int ense than the adjacent liver and may represent normal adrenal medulla. Tracer distribution is otherwise physiological. IMPRESSION: Abnormal MIBG scan. 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 Signed: Tyler Mccollum MDReport Verified Date/Time: 05/01/2018 15:01:04 Reading Location: [address] [address] [facility] Reading Room
--- NOTE | 2023-01-09 11:16 | ER ---
Nurse's Notes [facility] Name: Harrison Arriaza Age: 72 yrs Sex: Male : 1950 Arrival Date: 01/09/2023 Time: 10:49 Bed IW2 Private MD: Diagnosis: Encounter for removal of sutures Presentation: 01/09 10:56 Chief complaint: Patient states: needs sutures removed from left ankle. Coronavirus iw screen: At this time, the client does not indicate any symptoms associated with coronavirus-19. Ebola Screen: Patient negative for fever greater than or equal to 101.5 degrees Fahrenheit, and additional compatible Ebola Virus Disease symptoms Patient denies exposure to infectious person. Patient denies travel to an Ebola-affected area in the 21 days before illness onset. No symptoms or risks identified at this time. Initial Sepsis Screen: Does the patient meet any 2 criteria? No. Patient's initial sepsis screen is negative. Does the patient have a suspected source of infection? No. Patient's initial sepsis screen is negative. Risk Assessment: Do you want to hurt yourself or someone else? Patient reports no desire to harm self or others. 10:56 Method Of Arrival: Ambulatory iw 10:56 Acuity: SHARAN 4 iw Historical: - Allergies: 10:57 No Known Allergies; iw - PMHx: 10:57 Diabetes - NIDDM; Hypertension; iw Screenin:58 [facility] ED Fall Risk Assessment (Adult) History of falling in the last 3 months, iw including since admission. Abuse screen: Denies threats or abuse. Denies injuries from another. Nutritional screening: No deficits noted. Tuberculosis screening: No symptoms or risk factors identified. Assessment: 10:58 General: Appears in no apparent distress. Behavior is calm, cooperative. Pain: Denies iw pain. Neuro: Level of Consciousness is awake, alert, obeys commands, Oriented to person, place, time, situation. Vital Signs: 10:56 BP 148 / 73; Pulse 77; Resp 16; Pulse Ox 97% on R/A; iw ED Course: 10:53 Patient arrived in ED. mr 10:55 Kelsey Mendosa FNP-C is [facility]. snw 10:55 Gagandeep Redd MD is Attending Physician. snw 10:56 Triage completed. iw 10:57 Arm band placed on. iw 10:59 Hermann, Selina, RN is Primary Nurse. iw Administered Medications: No medications were administered Medication: 10:58 VIS not applicable for this client. iw Outcome: 11:16 Discharge ordered by MD. davis 11:28 Patient left the ED. iw Signatures: Kelsey Mendosa, SOIL FERTILITY EXTENSION SPECIALIST-C SOIL FERTILITY EXTENSION SPECIALIST-Csnw Aquilino Lavinia mr Selina Mccrary, RN RN iw Corrections: (The following items were deleted from the chart) 10:57 10:56 Pulse 77bpm; Resp 16bpm; Pulse Ox 97% RA; iw iw
--- NOTE | 2023-01-09 11:17 | EDPHYS ---
Physician Documentation [facility] Name: Harrison Arriaza Age: 72 yrs Sex: Male : 1950 Arrival Date: 01/09/2023 Time: 10:49 Bed IW2 Private MD: ED Physician Gagandeep Redd HPI: 01/09 11:14 This 72 yrs old Male presents to ER via Ambulatory with complaints of Suture Removal. snw Historical: - Allergies: 10:57 No Known Allergies; iw - PMHx: 10:57 Diabetes - NIDDM; Hypertension; iw ROS: 11:14 Constitutional: Negative for fever, chills, and weight loss, Eyes: Negative for injury, snw pain, redness, and discharge, ENT: Negative for injury, pain, and discharge, Neck: Negative for injury, pain, and swelling, Cardiovascular: Negative for chest pain, palpitations, and edema, Respiratory: Negative for shortness of breath, cough, wheezing, and pleuritic chest pain, Abdomen/GI: Negative for abdominal pain, nausea, vomiting, diarrhea, and constipation, Back: Negative for injury and pain, : Negative for injury, bleeding, discharge, and swelling, MS/Extremity: Negative for injury and deformity, Neuro: Negative for headache, weakness, numbness, tingling, and seizure, Psych: Negative for depression, anxiety, suicide ideation, homicidal ideation, and hallucinations. 11:14 Skin: Positive for here for suture removal. Exam: 11:08 Constitutional: This is a well developed, well nourished patient who is awake, alert, snw and in no acute distress. Head/Face: Normocephalic, atraumatic. Eyes: Pupils equal round and reactive to light, extra-ocular motions intact. Lids and lashes normal. Conjunctiva and sclera are non-icteric and not injected. Cornea within normal limits. Periorbital areas with no swelling, redness, or edema. ENT: Nares patent. No nasal discharge, no septal abnormalities noted. Tympanic membranes are normal and external auditory canals are clear. Oropharynx with no redness, swelling, or masses, exudates, or evidence of obstruction, uvula midline. Mucous membranes moist. Neck: Trachea midline, no thyromegaly or masses palpated, and no cervical lymphadenopathy. Supple, full range of motion without nuchal rigidity, or vertebral point tenderness. No Meningismus. MS/ Extremity: Pulses equal, no cyanosis. Neurovascular intact. Full, normal range of motion. Neuro: Awake and alert, GCS 15, oriented to person, place, time, and situation. Cranial nerves II-XII grossly intact. Motor strength 5/5 in all extremities. Sensory grossly intact. Cerebellar exam normal. Normal gait. Psych: Awake, alert, with orientation to person, place and time. Behavior, mood, and affect are within normal limits. 11:08 Skin: suture removal from right lateral ankle x 4 sutures, wound edges well approximated. Vital Signs: 10:56 BP 148 / 73; Pulse 77; Resp 16; Pulse Ox 97% on R/A; iw Procedures: 11:15 Suture/Staple removal: Removed 4 sutures, from right lateral malleolus, dressed with snw none. Patient tolerated well. MDM: 11:15 Data reviewed: vital signs, nurses notes. Counseling: I had a detailed discussion with snw the patient and/or guardian regarding: the historical points, exam findings, and any diagnostic results supporting the discharge/admit diagnosis, the presence of at least one elevated blood pressure reading (>120/80) during this emergency department visit, to return to the emergency department if symptoms worsen or persist or if there are any questions or concerns that arise at home. Special discussion: Based on the history and exam findings, there is no indication for further emergent testing or inpatient evaluation. I discussed with the patient/guardian the need to see the primary care provider for further evaluation of the symptoms. 11:16 Patient medically screened. snw Administered Medications: No medications were administered Disposition: 20:11 Co-signature as Attending Physician, Gagandeep Redd MD I reviewed the patient's care rt provided by the Advanced Practice Provider and agree with the diagnosis and treatment plan. Disposition Summary: 01/09/23 11:16 Discharge Ordered Location: Home snw Condition: Stable snw Diagnosis - Encounter for removal of sutures snw Followup: snw - With: Emergency Department - When: As needed - Reason: Worsening of condition Followup: snw - With: Private Physician - When: 1 - 2 days - Reason: Recheck today's complaints, Continuance of care, Re-evaluation by your physician Discharge Instructions: - Discharge Summary Sheet snw - Suture Removal, Care After snw Forms: - Medication Reconciliation Form snw - Thank You Letter snw - Antibiotic Education snw - Prescription Opioid Use snw Signatures: Kelsey Mendosa FNP-C RESPIRATORY ASSISTANT-Csnw Selian Mccrary, RN RN iw Gagandeep Redd MD MD rt
[2023-01-09 11:39] VITALS: BP 148/73; O2SAT 97
== END 2023-01-09 11:28 | disposition home or self-care (01) ==
LOC: ER 10:49
DX: Z48.02 Encounter for removal of sutures (principal)

== ENCOUNTER 2023-09-12 13:18 | Day surgery (SDC) | payer OTHER ==
[2023-09-11 10:37] LABS: Potassium 4.5 mEq/L (3.5-5.1)
--- NOTE | 2023-09-11 17:23 | EKG ---
Test Date: 2023-09-11 Test Time: 11:04:23 Hob Machine Operator: VAMSHI MEASUREMENT RESULTS: Intervals: Rate: 65 [place]: 166 QRSD: 86 QT: 388 QTc: 403 [place]: P: 65 [place]: 166 QRS: 85 T: 79 INTERPRETIVE STATEMENTS: Normal sinus rhythm Normal ECG Compared to ECG 02/17/2022 07:30:32 No significant changes Electronically Signed On 09-11-23 17:22:50 ARMED GUARD by Zeyad Simpson
[2023-09-12] MEDS ORDERED: NA CHLORIDE 0.9% 1,000 ML ONE (13:26)
[2023-09-12] MEDS ORDERED: CEFAZOLIN SODIUM 2 GM/VIAL ONE (13:26)
[2023-09-12] MEDS ORDERED: BUPIVACAINE 0.25% PF 10 ML VIAL ONE (14:06)
[2023-09-12] MEDS ORDERED: propofoL 200 MG/20 ML VIAL IV ONE (14:46)
[2023-09-12] MEDS ORDERED: ONDANSETRON 4 MG/2 ML VIAL ONE (14:46)
[2023-09-12] MEDS ORDERED: ROCURONIUM 50 MG/5 ML VIAL IV ONE (14:46)
[2023-09-12] MEDS ORDERED: FENTANYL CITR 100 MCG/2 ML ONE ×2 (14:47→15:31)
[2023-09-12] MEDS ORDERED: LIDOCAINE 2% MPF 5 ML VIAL ONE (14:47)
[2023-09-12] MEDS ORDERED: dexAMETHasone 4 MG/ML VIAL ONE (15:18)
[2023-09-12] MEDS ORDERED: EPHEDRINE SULF 50 MG/ML VIAL ONE (15:24)
--- NOTE | 2023-09-12 16:03 | P.OP ---
Preoperative diagnosis: Incarcerated Umbilical Hernia Postoperative diagnosis: Incarcerated Umbilical Hernia Primary procedure: Laparoscopic Umbilical Hernia Repair with Mesh Anesthesia: GETA + Local Estimated blood loss: <2cc Specimen: None Findings: Incarcerated Umbilical Hernia ~ 2cm Complications: None Implants: Bard Ventralite ST mesh with Echo position, Sorbafix x 45 Transferred to: Recovery Room Condition: Good
[2023-09-12] MEDS: HYDROMORPHONE HCL 1 MG/ML INJ ONE ×4 (16:20→16:36)
[2023-09-12 16:27] VITALS: TEMP 97.8
[2023-09-12 16:40] VITALS: O2SAT 95
[2023-09-12] MEDS: FENTANYL CITR 100 MCG/2 ML ONE ×2 (16:45→16:50)
[2023-09-12] MEDS ORDERED: HYDROCODONE/APAP 10/325 TAB ONE (17:23)
[2023-09-12 18:25] VITALS: BP 131/71
--- NOTE | 2023-09-12 18:36 | OP ---
Date of Procedure: 09/12/2023 Surgeon: Jaspreet Harry MD, Preoperative Diagnosis: Incarcerated umbilical hernia. Postoperative Diagnosis: Incarcerated umbilical hernia. Procedure Performed: Laparoscopic umbilical hernia repair with mesh. Anesthesia: General endotracheal plus local with 0.25% Marcaine. Estimated Blood Loss: 2 cc. Specimen: None. Findings: Incarcerated umbilical hernia with adipose tissue finding approximately 2 cm in size. Complications: None. Implants: Bard Ventralight ST mesh with Echo Positioning System, 11.4 cm Bard Ventralight mesh, roun d utilized and SorbaFix absorbable fixation tacks x45 tacks. Disposition: Patient transferred to recovery room in good condition. Procedure In Detail: After informed consent was obtained, patient was brought to the operating room, prepped and draped in the usual sterile fashion after adequate anesthesia was achieved. I anestheti zed an area in the left upper quadrant down to subcutaneous tissues. A 5 mm 0-degree optical trocar was introduced in the abdomen without incident or complication. Insufflation was obtained to 15 mmHg , at this time. There was no injury to vital structures upon entering the abdomen. Additional troca rs were placed in the left mid abdomen. There is a 12 mm trocar placed under direct visualization wi thout incident or complication. At this point, I used the LigaSure device to take down preperitoneal incarcerated adipose tissue from the umbilical hernia which was incarcerated, at this point, after t he adipose tissue was swept back and the preperitoneal fat was also swept superiorly and inferiorly t o allow for an appropriate landing zone on the fascia. At this point, I brought in an 0 V-Loc suture on an Endo stitch and sewed the hernia defect closed, imbricating the hernia sac, at this point, in a running fashion with good approximation of the tissues. At this point, I then deployed 11.4 cm Bar d Ventralight mesh with Echo Positioning System in the central portion through a separate stab incisi on in the supraumbilical position. After appropriately anesthetizing the skin, I then positioned the mesh, at this point, deployed the balloon system. I secured the mesh to the anterior abdominal wall with a single crown of SorbaFix fixation tacks, removed the balloon deployment system. It was found to be intact on the back table. At this point, I deployed a total of 45 tacks to the anterior abdom inal wall in a double crown type orientation with good approximation of the mesh to the anterior skyla l wall. No hemostatic measures were required. I then closed the 12 mm trocar site using a Vernon- omason suture passer with 0 Vicryl in an interrupted fashion with good approximation of tissues. The abdomen was completely desufflated under direct visualization without incident or complication. All skin incisions were then copiously irrigated and closed with a 4-0 Monocryl in a running fashion. D ermabond was placed over top. The patient tolerated the procedure well without incident or complicat ion. Transferred to PACU in good condition. All counts were correct at the end of the case. JUSTIN/RIC Voice ID: [id number] Report ID: [id number]
== END 2023-09-12 18:20 | disposition home or self-care (01) ==
LOC: OR 13:18
PROVIDERS: ATTEND Surgery
PROC: 0WUF4JZ Supplement Abdominal Wall with Synthetic Substitute, Percutaneous Endoscopic Approach (ICD-10-PCS; principal; 2023-09-12 15:15)
DX: K42.0 Umbilical hernia with obstruction, without gangrene (principal)
CPT/HCPCS: 93005; 80048; 36415; 82947; 49592; J2704; J1100; J2001; J3010 ×3; J1170 ×2; J2405; J7030; C1781

== ENCOUNTER 2024-07-24 11:17 | Emergency (ER) | payer OTHER ==
[2024-07-24 11:59] LABS: PT Prothrombin Time 11.4 SECONDS (9.4-12.5); Protime INR 1.02
[2024-07-24 12:02] LABS: Absolute Lymphocytes (CBC) 1.4 K/uL (0.7-4.9); Absolute Monocytes 0.9 K/uL (0.1-1.3); Absolute Neutrophil 8.5 K/uL (1.8-8.0); Basophils % 0.2 % (0-1.3); Eosinophils % 0.3 % (0-4.4); Hematocrit 47.8 % (39.6-49.0); MCH 32.5 pg (27.0-35.0); MCHC 33.6 g/dL (32.0-36.0); MCV 96.9 fL (80-100); MPV 9.9 fL (7.6-11.3); Monocytes % 8.1 % (3.3-12.3); Neutrophils % 78.4 % (41.7-73.7); Platelets 227 thou/uL (152-406); RBC Red Blood Cell Count 4.93 M/uL (4.33-5.43)
[2024-07-24 12:20] LABS: Albumin 3.7 g/dL (3.4-5.0); Anion Gap 8.9 mEq/L (5.0-15.0); Bilirubin Direct 0.3 mg/dL (0-0.2); Bilirubin Total 1.3 mg/dL (0.2-1.0); Globulin 3.8 g/dL (2.3-3.5); Magnesium 1.8 mg/dL (1.6-2.4); Potassium 3.9 mEq/L (3.5-5.1); Protein, Total 7.5 g/dL (6.4-8.2); Troponin High Sensitivity 7.1 pg/mL (<58.9)
[2024-07-24] MEDS ORDERED: NA CHLORIDE 0.9% 500 ML ONE (12:37)
--- NOTE | 2024-07-24 12:48 | RAD REPORT ---
EXAMINATION: CT HEAD WITHOUT CONTRAST CT CERVICAL SPINE WITHOUT CONTRAST CLINICAL INDICATION: Head and neck injury status post fall. Head and neck pain TECHNIQUE: Axial CT images from the skull base to the vertex without intravenous contrast. Axial CT i mages through the cervical spine were obtained without intravenous contrast. Sagittal and coronal reformatted images were created from the data set. Coronal and sagittal reformatted images were creat ed from the data set. One or more of the following dose reduction techniques were used: Automated exposure control, adjustment of the mA and/or kV according to patient size, and/or iterative reconstr uction. Unless otherwise specified, incidental findings do not require dedicated imaging follow-up. [id number]. Comparison: none FINDINGS: An intracranial bleed is not seen. Ventricles are normal in caliber. 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 No extra-axial fluid collection. No fluid within the sinuses/mastoids No fracture or dislocation is seen involving the cervical spine. IMPRESSION: No acute intracranial abnormality noted A cervical fracture is not seen. If the patient continues to have symptoms to suggest acute COLOR SPECIALIST/spinal pathology then MRI would be rec ommended
--- NOTE | 2024-07-24 12:59 | RAD REPORT ---
EXAM: Chest Abdomen Pelvis W Cont CLINICAL INDICATION: Chest and abdominal pain status post fall TECHNIQUE: CT chest, abdomen and pelvis was performed, with 100 cc Isovue-300 IV contrast, as per de partment protocol. Axial, sagittal and coronal reconstructions were obtained. One or more of the following dose reduction techniques were used: Automated exposure control, adjustment of the mA and/o r kV according to the patient size, and/or iterative reconstruction. Unless otherwise specified, incidental findings do not require dedicated imaging follow-up. [id number]. Oral contrast not given. This limits evaluation of the bowel. COMPARISON: 2017 and 2021 FINDINGS: A pulmonary contusion not seen. Tiny right lung nodule change is benign. There is scarring right lowe r lobe. No mediastinal hematoma noted No pleural effusion.. No pericardial effusion Liver, spleen, pancreas, adrenals, kidneys and bladder do not demonstrate an acute traumatic injury. There is no evidence of diverticulitis Cholelithiasis. Small renal cysts. Postsurgical changes lumbar spine. Moderate bilateral inguinal her nias containing fat. IMPRESSION: No acute traumatic injury involving chest, abdomen or pelvis seen
--- NOTE | 2024-07-24 13:09 | RAD REPORT ---
Procedure: Chest Single View HISTORY: Chest pain COMPARISON: 2020 FINDINGS: The lungs appear clear of acute infiltrate. No significant pleural effusion noted. The heart is normal size. IMPRESSION: No acute abnormality is displayed.
[2024-07-24] MEDS ORDERED: DIAZEPAM 10 MG/2 ML INJ SYRINGE ONE (13:22)
[2024-07-24] MEDS ORDERED: FENTANYL CITR 100 MCG/2 ML ONE (13:23)
[2024-07-24] MEDS ORDERED: KETOROLAC 30 MG/ML INJ ONE (13:23)
[2024-07-24] MEDS ORDERED: ONDANSETRON 4 MG/2 ML VIAL ONE (13:23)
--- NOTE | 2024-07-24 13:32 | EDPHYS ---
Physician Documentation [facility] Name: Harrison Arriaza Age: 74 yrs Sex: Male : 1950 Arrival Date: 07/24/2024 Time: 11:17 Bed 17 Private MD: ED Physician Dg Tenorio HPI: 07/24 13:21 This 74 yrs old Male presents to ER via Ambulatory with complaints of Fall rahel Injury. 13:21 Details of fall: The patient fell from a height, down approximately 14 stairs. Onset: rahel The symptoms/episode began/occurred just prior to arrival, this morning. Associated injuries: The patient sustained injury to the head, neck injury, upper back injury, injury to the low back, injury to the chest, injury to the abdomen. Severity of symptoms: At their worst the symptoms were moderate, in the emergency department the symptoms are unchanged. The patient has not experienced similar symptoms in the past. Historical: - Allergies: 11:31 No Known Allergies; iw - PMHx: 11:31 Diabetes - NIDDM; Hypertension; iw - PSHx: 11:31 back fusion (Hypertension); iw - Immunization history:: Adult Immunizations up to date. - Infectious Disease History:: Denies. - Social history:: Smoking status: Patient reports the use of cigarette tobacco products, Smoking status: Patient denies any tobacco usage or history of. ROS: 13:23 Constitutional: Negative for fever, chills, and weight loss, Eyes: Negative for injury, rahel pain, redness, and discharge, ENT: Negative for injury, pain, and discharge, Cardiovascular: Negative for chest pain, palpitations, and edema, Respiratory: Negative for shortness of breath, cough, wheezing, and pleuritic chest pain, : Negative for injury, bleeding, discharge, and swelling, Skin: Negative for injury, rash, and discoloration, Neuro: Negative for headache, weakness, numbness, tingling, and seizure, Psych: Negative for depression, anxiety, suicide ideation, homicidal ideation, and hallucinations, Allergy/Immunology: Negative for hives, rash, and allergies, Endocrine: Negative for neck swelling, polydipsia, polyuria, polyphagia, and marked weight changes, Hematologic/Lymphatic: Negative for swollen nodes, abnormal bleeding, and unusual bruising, 13:23 Abdomen/GI: Positive for abdominal pain, 13:23 Back: Positive for decreased range of motion, pain at rest, flank pain, bilaterally, 13:23 MS/extremity: Positive for abrasion, contusion, Exam: 13:23 Constitutional: This is a well developed, well nourished patient who is awake, alert, rahel and in no acute distress. Eyes: Pupils equal round and reactive to light, extra-ocular motions intact. Lids and lashes normal. Conjunctiva and sclera are non-icteric and not injected. Cornea within normal limits. Periorbital areas with no swelling, redness, or edema. ENT: Nares patent. No nasal discharge, no septal abnormalities noted. Tympanic membranes are normal and external auditory canals are clear. Oropharynx with no redness, swelling, or masses, exudates, or evidence of obstruction, uvula midline. Mucous membranes moist. Neck: Trachea midline, no thyromegaly or masses palpated, and no cervical lymphadenopathy. Supple, full range of motion without nuchal rigidity, or vertebral point tenderness. No Meningismus. Chest/axilla: Normal chest wall appearance and motion. Nontender with no deformity. No lesions are appreciated. Cardiovascular: Regular rate and rhythm with a normal S1 and S2. No gallops, murmurs, or rubs. Normal PMI, no JVD. No pulse deficits. Respiratory: Lungs have equal breath sounds bilaterally, clear to auscultation and percussion. No rales, rhonchi or wheezes noted. No increased work of breathing, no retractions or nasal flaring. Abdomen/GI: Soft, non-tender, with normal bowel sounds. No distension or tympany. No guarding or rebound. No evidence of tenderness throughout. Male : Normal genitalia with no discharge or lesions. Skin: Warm, dry with normal turgor. Normal color with no rashes, no lesions, and no evidence of cellulitis. Neuro: Awake and alert, GCS 15, oriented to person, place, time, and situation. Cranial nerves II-XII grossly intact. Motor strength 5/5 in all extremities. Sensory grossly intact. Cerebellar exam normal. Normal gait. Psych: Awake, alert, with orientation to person, place and time. Behavior, mood, and affect are within normal limits. 13:23 Head/face: Noted is abrasion(s), hematoma, swelling, that is moderate, of the left frontal area and left temporal area, 13:23 Neck: C-spine: appears grossly normal, ROM/movement: pain, that is mild, with extension, with flexion, Meningeal signs: are not present, Lymph nodes: no appreciated lymphadenopathy, 13:23 Chest/axilla: Inspection: ANTERIOR MUSCULAR PAIN, 13:23 ECG was reviewed by the Attending Physician. 13:23 Back: pain, that is moderate, of the left subscapular area, right subscapular area, left low back, left mid back, right mid back and right low back, ROM is normal, CVA tenderness, is absent, vertebral tenderness, 13:23 Musculoskeletal/extremity: ROM: intact in all extremities, Circulation is intact in all extremities. Sensation intact. Compartment Syndrome exam of affected extremity: is normal. Joints: All joints appear normal with full range of motion. Weight bearing: able to fully bear weight, 13:23 Skin: injury, abrasion(s), small abrasion noted, of the right arm and left arm, Vital Signs: 11:28 BP 138 / 72; Pulse 68; Resp 16; Temp 96.8; Pulse Ox 99% on R/A; Weight 88.9 kg; Height iw 5 ft. 10 in. ; Pain 8/10; 12:51 BP 130 / 56; Pulse 70; Resp 16; Pulse Ox 97% ; bp 14:34 BP 135 / 60; Pulse 64; Resp 16; Pulse Ox 96% ; bp 11:28 Body Mass Index 28.12 (88.90 kg, 177.8 cm) iw 11:28 Pain Scale: Adult iw MDM: 11:38 Medical Screening Exam initiated rahel 13:28 Differential diagnosis: closed fracture, contusion, abrasion, arthritis, chronic back rahel pain, Fatigue Fracture Hydronephrosis. Differential Diagnosis altered mental status, sepsis, flu. Differential diagnosis: abrasion, closed head injury, contusion, fracture, laceration, multiple trauma, sprain, strain. Data reviewed: vital signs, nurses notes, lab test result(s), EKG, radiologic studies, CT scan, plain films. Consideration of Admission/Observation Escalation of care including admission/observation considered. I considered the following discharge prescriptions or medication management in the emergency department Medications were administered in the Emergency Department. See MAR. Independent interpretation of the following test(s) in the Emergency Department EKG: See my EKG interpretation above. Test considered but Not performed: MRI: NO SPINAL MRI. Historians other than the Patient: Spouse/Significant Other: INFORMED. Care significantly affected by the following chronic conditions: Diabetes, Hypertension. 07/24 11:39 Order name: Basic Metabolic Panel; Complete Time: 13:05 [facility] 07/24 11:39 Order name: CBC with Diff; Complete Time: 13:05 [facility] 07/24 11:39 Order name: LFT's; Complete Time: 13:05 [facility] 07/24 11:39 Order name: Magnesium; Complete Time: 13:05 [facility] 07/24 11:39 Order name: NT PRO-BNP; Complete Time: 13:05 [facility] 07/24 11:39 Order name: PT-INR; Complete Time: 13:05 [facility] 07/24 11:39 Order name: Troponin HS; Complete Time: 13:05 [facility] 07/24 11:39 Order name: Lipase; Complete Time: 13:05 [facility] 07/24 11:39 Order name: Urinalysis w/ reflexes [facility] 07/24 11:39 Order name: XRAY Chest (1 view); Complete Time: 13:36 [facility] 07/24 12:31 Order name: Head C Spine Mpr Wo Con; Complete Time: 13:05 [facility] 07/24 12:34 Order name: Chest Abdomen Pelvis W Cont; Complete Time: 13:05 [facility] 07/24 11:39 Order name: EKG; Complete Time: 11:40 [facility] 07/24 11:39 Order name: Cardiac monitoring; Complete Time: 11:40 [facility] 07/24 11:39 Order name: EKG - Nurse/Tech; Complete Time: 12:00 [facility] 07/24 11:39 Order name: IV Saline Lock; Complete Time: 12:00 [facility] 07/24 11:39 Order name: Labs collected and sent; Complete Time: 12:00 [facility] 07/24 11:39 Order name: O2 Per Protocol; Complete Time: 11:40 [facility] 07/24 11:39 Order name: O2 Sat Monitoring; Complete Time: 11:40 [facility] 07/24 13:21 Order name: Misc. Order: GET UA; Complete Time: 14:00 [facility] 07/24 13:23 Order name: Wound Care; Complete Time: 14:00 [facility] EC:23 Rate is 62 beats/min. Rhythm is regular. QRS [place] is Normal. [place] interval is normal. QRS rahel interval is normal. QT interval is normal. No Q waves. T waves are Normal. No ST changes noted. Clinical impression: Normal ECG and No evidence of ischemia. Interpreted by me. Reviewed by me. Administered Medications: 12:00 Drug: NS 0.9% IV 500 ml 500 ml IV at 1 bolus once; to be given as a bolus over 30 bp minutes, then 125 cc/hr Volume: 500 ml; Route: IV; Rate: 1 bolus; Site: right antecubital; 14:35 Follow up: IV Status: Completed infusion bp 13:30 Drug: Diazepam IVP 5 mg IVP once Route: IVP; Site: right antecubital; bp 14:00 Follow up: Response: No adverse reaction bp 13:30 Drug: Ketorolac IVP 15 mg IVP once Route: IVP; Site: right antecubital; bp 14:00 Follow up: Response: No adverse reaction bp 13:30 Drug: Ondansetron IVP 4 mg IVP once; over 2 minutes Route: IVP; Site: right antecubital;bp 14:00 Follow up: Response: No adverse reaction bp 13:30 Drug: fentaNYL (PF) IVP 50 mcg IVP once Route: IVP; Site: right antecubital; bp 14:00 Follow up: Response: No adverse reaction bp 13:59 Drug: Boostrix Tdap IM 0.5 ml IM once; as a single dose Route: IM; Site: right deltoid; bp 13:59 Follow up: Response: No adverse reaction bp Disposition Summary: 07/24/24 13:31 Discharge Ordered Notes: Location: Home rahel Problem: new rahel Symptoms: have improved rahel Condition: Stable rahel Diagnosis - Fall (on) (from) other stairs and steps - 10 PLUS rahel - Low back pain rahel - Unspecified symptoms and signs involving the musculoskeletal system rahel - Unspecified injury of head, initial encounter - LEFT SIDED HEMATOMA, CONTUSION rahel - Abrasion of left upper arm rahel Followup: rahel - With: Private Physician - When: 2 - 3 days - Reason: Recheck today's complaints, Continuance of care, Re-evaluation by your physician Discharge Instructions: - Discharge Summary Sheet rahel - Abrasion rahel - Acute Back Pain, Adult rahel - Head Injury, Adult rahel - Fall Prevention in the Home, Adult rahel - Musculoskeletal Pain rahel - How to Use an Incentive Spirometer rahel - Abrasion, [id number] rahel - Fall Prevention in the Home, Adult, [id number] rahel - Head Injury, Adult, [id number] rahel - Incentive Spirometer Record [facility] Forms: - Medication Reconciliation Form [facility] - Antibiotic Education rahel - Prescription Opioid Use rahel - Patient Portal Instructions [facility] - Leadership Thank You Letter [facility] Prescriptions: - acetaminophen-codeine 300-30 mg Oral tablet - take 2 tablet ORAL route every 6 hours as needed for pain; 30 tablet; Refills: rahel 0, Product Selection Permitted - diclofenac sodium 50 mg Oral tablet, delayed release (enteric coated) - take 1 tablet ORAL route 3 times per day; 21 tablet; Refills: 0, Product rahel Selection Permitted - ondansetron 4 mg Oral Tablet,disintegrating - take 1 tablet ORAL route every 6 to 8 hours for 5 days; 20 tablet; Refills: 0, [facility] Product Selection Permitted - Medrol ([place]) 4 mg Oral Tablets, Dose Pack - take 1 tablet ORAL route as directed - follow package instructions; 1 packet; [facility] Refills: 0, Product Selection Permitted - methocarbamol 750 mg Oral tablet - take 1 tablet ORAL route 4 times per day; 36 tablet; Refills: 0, Product rahel Selection Permitted Signatures: Dispatcher [employer] EDMS Dg Tenorio MD MD cha Williams, Irene, RN RN Ranjit Roth RN RN bp Corrections: (The following items were deleted from the chart) 11:40 11:39 BASIC METABOLIC PANEL+C.LAB.BRZ ordered. EDMS EDMS 11:40 11:39 CBC+H.LAB.BRZ ordered. EDMS EDMS 11:40 11:39 HEPATIC FUNCTION+C.LAB.BRZ ordered. EDMS EDMS 11:40 11:39 MAGNESIUM+C.LAB.BRZ ordered. EDMS EDMS 11:40 11:39 PROBNP+C.LAB.BRZ ordered. EDMS EDMS 11:40 11:39 PROTIME (+INR)+COAG.LAB.BRZ ordered. EDMS EDMS 11:40 11:39 Troponin High Sensitivity+C.LAB.BRZ ordered. EDMS EDMS 11:40 11:39 LIPASE+C.LAB.BRZ ordered. EDMS EDMS 11:40 11:39 Urinalysis+U.LAB.BRZ ordered. EDMS EDMS 12:04 11:40 Head C Spine CAP W Con+CT.RAD.BRZ ordered. EDMS EDMS 12:31 12:05 Head C Spine Cap W Con ordered. EDMS EDMS 13:07 13:07 IS+RC.RAD.BRZ ordered. EDMS EDMS
--- NOTE | 2024-07-24 13:32 | ER ---
Nurse's Notes [facility] Name: Harrison Arriaza Age: 74 yrs Sex: Male : 1950 Arrival Date: 07/24/2024 Time: 11:17 Bed 17 Private MD: Diagnosis: Fall (on) (from) other stairs and steps-10 PLUS;Low back pain;Unspecified symptoms and signs involving the musculoskeletal system;Unspecified injury of head, initial encounter-LEFT SIDED HEMATOMA, CONTUSION;Abrasion of left upper arm Presentation: 07/24 11:28 Chief complaint: Patient states: fell down a flight of stairs down to the floor, he iw tripped on the top step , fell backwards , slid all the way down, hit his head on floor, has pain to back left side and pain to left side of head, no LOC , not on blood thinners. Coronavirus screen: At this time, the client does not indicate any symptoms associated with coronavirus-19. Ebola Screen: No symptoms or risks identified at this time. Initial Sepsis Screen: Does the patient meet any 2 criteria? No. Patient's initial sepsis screen is negative. Does the patient have a suspected source of infection? No. Patient's initial sepsis screen is negative. Risk Assessment: Do you want to hurt yourself or someone else? Patient reports no desire to harm self or others. Onset of symptoms was July 24, 2024. 11:28 Method Of Arrival: Ambulatory iw 11:28 Acuity: SHARAN 3 iw Triage Assessment: 11:37 General: Appears in no apparent distress. uncomfortable, Behavior is calm, cooperative, bp appropriate for age. Pain: Complains of pain in back. EENT: No deficits noted. Neuro: No deficits noted. Cardiovascular: No deficits noted. Respiratory: No deficits noted. GI: No signs and/or symptoms were reported involving the gastrointestinal system. : No signs and/or symptoms were reported regarding the genitourinary system. Derm: No deficits noted. Musculoskeletal: No deficits noted. Historical: - Allergies: : No Known Allergies; iw - PMHx: 11: Diabetes - NIDDM; Hypertension; iw - PSHx: :31 back fusion (Hypertension); iw - Immunization history:: Adult Immunizations up to date. - Infectious Disease History:: Denies. - Social history:: Smoking status: Patient reports the use of cigarette tobacco products, Smoking status: Patient denies any tobacco usage or history of. Screenin:38 [facility] ED Fall Risk Assessment (Adult) History of falling in the last 3 months, bp including since admission No falls in past 3 months (0 pts) Confusion or Disorientation No (0 pts) Intoxicated or Sedated No (0 pts) Impaired Gait No (0 pts) Mobility Assist Device Used No (0 pt) Altered Elimination No (0 pt) Score/Fall Risk Level 0 - 2 = Low Risk. Abuse screen: Denies threats or abuse. Denies injuries from another. Nutritional screening: No deficits noted. Tuberculosis screening: No symptoms or risk factors identified. Assessment: 11:38 General: Appears in no apparent distress. uncomfortable, Behavior is calm, cooperative, bp appropriate for age. Pain: Complains of pain in back. Neuro: No deficits noted. Cardiovascular: No deficits noted. Respiratory: No deficits noted. GI: No signs and/or symptoms were reported involving the gastrointestinal system. : No signs and/or symptoms were reported regarding the genitourinary system. EENT: No deficits noted. Derm: No deficits noted. Musculoskeletal: No deficits noted. 12:52 Reassessment: Patient appears in no apparent distress at this time. Patient is alert, bp oriented x 3, equal unlabored respirations, skin warm/dry/pink. Vital Signs: 11:28 BP 138 / 72; Pulse 68; Resp 16; Temp 96.8; Pulse Ox 99% on R/A; Weight 88.9 kg; Height iw 5 ft. 10 in. ; Pain 8/10; 12:51 BP 130 / 56; Pulse 70; Resp 16; Pulse Ox 97% ; bp 14:34 BP 135 / 60; Pulse 64; Resp 16; Pulse Ox 96% ; bp 11:28 Body Mass Index 28.12 (88.90 kg, 177.8 cm) iw 11:28 Pain Scale: Adult iw ED Course: 11:21 Patient arrived in ED. mg5 11:31 Triage completed. iw 11:31 Arm band placed on. iw 11:37 Ranjit Mayer, JOSE G is Primary Nurse. bp 11:38 Dg Tenorio MD is Attending Physician. rahel 11:38 Patient has correct armband on for positive identification. bp 12:00 Initial lab(s) drawn, by me, sent to lab. EKG done, by ED staff, reviewed by Dg Tenorio MD. Inserted saline lock: 20 gauge in right antecubital area, using aseptic technique. Blood collected. Flushed with 10 mL NS. 12:39 Head C Spine Mpr Wo Con In Process Unspecified. EDMS 12:39 Chest Abdomen Pelvis W Cont In Process Unspecified. EDMS 12:49 XRAY Chest (1 view) In Process Unspecified. EDMS 14:34 No provider procedures requiring assistance completed. IV discontinued, intact, bp bleeding controlled, No redness/swelling at site. Pressure dressing applied. 14:35 Provided Education on: N/A. bp Administered Medications: 12:00 Drug: NS 0.9% IV 500 ml 500 ml IV at 1 bolus once; to be given as a bolus over 30 bp minutes, then 125 cc/hr Volume: 500 ml; Route: IV; Rate: 1 bolus; Site: right antecubital; 14:35 Follow up: IV Status: Completed infusion bp 13:30 Drug: Diazepam IVP 5 mg IVP once Route: IVP; Site: right antecubital; bp 14:00 Follow up: Response: No adverse reaction bp 13:30 Drug: Ketorolac IVP 15 mg IVP once Route: IVP; Site: right antecubital; bp 14:00 Follow up: Response: No adverse reaction bp 13:30 Drug: Ondansetron IVP 4 mg IVP once; over 2 minutes Route: IVP; Site: right antecubital;bp 14:00 Follow up: Response: No adverse reaction bp 13:30 Drug: fentaNYL (PF) IVP 50 mcg IVP once Route: IVP; Site: right antecubital; bp 14:00 Follow up: Response: No adverse reaction bp 13:59 Drug: Boostrix Tdap IM 0.5 ml IM once; as a single dose Route: IM; Site: right deltoid; bp 13:59 Follow up: Response: No adverse reaction bp Medication: 11:38 VIS not applicable for this client. bp Outcome: 13:31 Discharge ordered by . rahel 14:34 Discharged to home ambulatory, with family, bp 14:34 Condition: stable 14:34 Discharge instructions given to patient, Instructed on discharge instructions, follow up and referral plans. medication usage, Demonstrated understanding of instructions, follow-up care, medications, Prescriptions given X 5 14:49 Patient left the ED. bp Signatures: Dispatcher [employer] Dg Chavez MD MD cha Williams, Irene, RN RN Ranjit Roth RN RN Cassandra Beltran mg5
[2024-07-24] MEDS ORDERED: TDAP (DIPHTH,PERTUSS(ACELL),TET VAC) 0.5 ML VIAL IMVAC ONE (13:45)
[2024-07-24 14:22] LABS: Specific Gravity > 1.030 (1.005-1.030); Urine Bilirubin NEGATIVE (Negative); Urine Blood Negative (Negative); Urine Clarity Clear (Clear); Urine Color Yellow (Yellow); Urine Glucose NEGATIVE (Negative); Urine Ketones NEGATIVE (Negative); Urine Microscopic Reflex YN NO UMIC; Urine Nitrite NEGATIVE (Negative); Urine Protein NEGATIVE (Negative); Urine Urobilinogen Normal (Normal); Urine pH 5.5 (5.0-7.0)
[2024-07-24 16:27] VITALS: TEMP 96.8
[2024-07-24 16:38] VITALS: BP 135/60; O2SAT 96
== END 2024-07-24 14:49 | disposition home or self-care (01) ==
LOC: ER 11:17
DX: R29.91 Unspecified symptoms and signs involving the musculoskeletal system (principal); S00.83XA Contusion of other part of head, initial encounter; S40.812A Abrasion of left upper arm, initial encounter; W10.8XXA Fall (on) (from) other stairs and steps, initial encounter; E11.9 Type 2 diabetes mellitus without complications; I10 Essential (primary) hypertension; Z72.0 Tobacco use
CPT/HCPCS: 96361; 85025; 80048; 36415; 83735; 85610; 80076; 81003; 84484; 83690; 83880; 70450; 72125; 71260; 74177; 71045; 96375; 96372; 96374; 99284; J3360; J3010; J2405; J7040

== ENCOUNTER 2024-10-25 07:46 | Observation (INO) | payer OTHER ==
--- NOTE | 2024-10-25 08:33 | RAD REPORT ---
Procedure: Chest Single View HISTORY: Chest pain COMPARISON: 2023 FINDINGS: Areas of scarring or subsegmental atelectasis right lung base Left lung appears clear.. No significant pleural effusion noted. The heart is normal size.
[2024-10-25] MEDS ORDERED: FAMOTIDINE 20 MG/2 ML VIAL IV ONE (08:47)
[2024-10-25] MEDS ORDERED: NA CHLORIDE 0.9% 1,000 ML ONE (08:47)
[2024-10-25] MEDS ORDERED: HYDROMORPHONE HCL 0.5 MG/0.5 ML INJ ONE ×2 (09:05→13:39)
[2024-10-25] MEDS ORDERED: ONDANSETRON 4 MG/2 ML VIAL ONE (09:06)
[2024-10-25 09:10] LABS: Absolute Basophils 0.1 K/uL (0-0.5); Absolute Lymphocytes (CBC) 0.9 K/uL (0.7-4.9); Absolute Neutrophil 16.1 K/uL (1.8-8.0); Basophils % 0.3 % (0-1.3); Eosinophils % 0.1 % (0-4.4); Hematocrit 49.8 % (39.6-49.0); Hemoglobin 16.9 g/dL (13.6-17.9); MCH 32.5 pg (27.0-35.0); MCHC 33.9 g/dL (32.0-36.0); MCV 95.8 fL (80-100); MPV 9.9 fL (7.6-11.3); Monocytes % 5.3 % (3.3-12.3); Neutrophils % 89.3 % (41.7-73.7); Platelets 241 thou/uL (152-406); Red Cell Distribution Width 13.3 % (12.1-15.2)
[2024-10-25 09:25] LABS: PT Prothrombin Time 11.3 SECONDS (10-13.0); Protime INR 0.99
[2024-10-25] MEDS ORDERED: PIPERACIL/TAZO 3.375 GM VIAL IV ONE (09:34)
[2024-10-25] MEDS ORDERED: NA CHLORIDE 0.9% 100 ML ONE (09:34)
[2024-10-25 09:35] LABS: Albumin 3.8 g/dL (3.4-5.0); Anion Gap 10.5 mEq/L (5.0-15.0); Bilirubin Direct 0.4 mg/dL (0-0.2); Bilirubin Indirect, Calculated 1.3 mg/dL (0.2-0.8); Bilirubin Total 1.7 mg/dL (0.2-1.0); Potassium 4.5 mEq/L (3.5-5.1); Protein, Total 7.8 g/dL (6.4-8.2)
[2024-10-25 09:51] LABS: Blood Morphology Comment NOT SEEN (NOT SEEN); Platelet Estimate ADEQ; White Blood Cell Scan OK (OK)
--- NOTE | 2024-10-25 10:35 | EDPHYS ---
Physician Documentation [facility] Name: Harrison Arriaza Age: 74 yrs Sex: Male : 1950 Arrival Date: 10/25/2024 Time: 07:46 Bed 15 Private MD: JATINDER Physician Dg Tenorio HPI: 10/25 09:06 This 74 yrs old Male presents to ER via Ambulatory with complaints of rahel Abdominal Pain. 09:06 The patient presents with abdominal pain in the epigastric area, in the upper abdomen, rahel abdominal distention in the upper abdomen. Onset: The symptoms/episode began/occurred 1 day(s) ago. The patient presents to the emergency department with nausea, vomiting, abdominal pain, of the epigastric area, right upper quadrant and left upper quadrant. Onset: The symptoms/episode began/occurred 1 day(s) ago. Possible causes: bad food exposure, flare up of bowel problem. The symptoms are aggravated by nothing. The symptoms are alleviated by nothing. Associated signs and symptoms: The patient has no apparent associated signs or symptoms. Associated signs and symptoms: none. Modifying factors: The symptoms are alleviated by nothing, the symptoms are aggravated by food. Historical: - Allergies: 08:10 No Known Allergies; hb - PMHx: 08:10 Diabetes - NIDDM; Hypertension; hb - PSHx: 08:10 back fusion (en); hb - Immunization history:: Adult Immunizations up to date. - Infectious Disease History:: Denies. - Social history:: Smoking status: Patient denies any tobacco usage or history of. - Family history:: not pertinent. ROS: 09:06 Constitutional: Negative for fever, chills, and weight loss, Eyes: Negative for injury, rahel pain, redness, and discharge, ENT: Negative for injury, pain, and discharge, Neck: Negative for injury, pain, and swelling, Cardiovascular: Negative for chest pain, palpitations, and edema, Respiratory: Negative for shortness of breath, cough, wheezing, and pleuritic chest pain, Back: Negative for injury and pain, : Negative for injury, bleeding, discharge, and swelling, MS/Extremity: Negative for injury and deformity, Skin: Negative for injury, rash, and discoloration, Neuro: Negative for headache, weakness, numbness, tingling, and seizure, Psych: Negative for depression, anxiety, suicide ideation, homicidal ideation, and hallucinations, Allergy/Immunology: Negative for hives, rash, and allergies, Endocrine: Negative for neck swelling, polydipsia, polyuria, polyphagia, and marked weight changes, Hematologic/Lymphatic: Negative for swollen nodes, abnormal bleeding, and unusual bruising, 09:06 Abdomen/GI: Positive for abdominal pain, nausea and vomiting, of the epigastric area, right upper quadrant and left upper quadrant, Exam: 09:06 Constitutional: This is a well developed, well nourished patient who is awake, alert, rahel and in no acute distress. Head/Face: Normocephalic, atraumatic. Eyes: Pupils equal round and reactive to light, extra-ocular motions intact. Lids and lashes normal. Conjunctiva and sclera are non-icteric and not injected. Cornea within normal limits. Periorbital areas with no swelling, redness, or edema. ENT: Nares patent. No nasal discharge, no septal abnormalities noted. Tympanic membranes are normal and external auditory canals are clear. Oropharynx with no redness, swelling, or masses, exudates, or evidence of obstruction, uvula midline. Mucous membranes moist. Neck: Trachea midline, no thyromegaly or masses palpated, and no cervical lymphadenopathy. Supple, full range of motion without nuchal rigidity, or vertebral point tenderness. No Meningismus. Chest/axilla: Normal chest wall appearance and motion. Nontender with no deformity. No lesions are appreciated. Cardiovascular: Regular rate and rhythm with a normal S1 and S2. No gallops, murmurs, or rubs. Normal PMI, no JVD. No pulse deficits. Respiratory: Lungs have equal breath sounds bilaterally, clear to auscultation and percussion. No rales, rhonchi or wheezes noted. No increased work of breathing, no retractions or nasal flaring. Back: No spinal tenderness. No costovertebral tenderness. Full range of motion. Male : Normal genitalia with no discharge or lesions. Skin: Warm, dry with normal turgor. Normal color with no rashes, no lesions, and no evidence of cellulitis. MS/ Extremity: Pulses equal, no cyanosis. Neurovascular intact. Full, normal range of motion., bilateral aka Neuro: Awake and alert, GCS 15, oriented to person, place, time, and situation. Cranial nerves II-XII grossly intact. Motor strength 5/5 in all extremities. Sensory grossly intact. Cerebellar exam normal. Normal gait. Psych: Awake, alert, with orientation to person, place and time. Behavior, mood, and affect are within normal limits. 09:06 Abdomen/GI: Inspection: abdomen appears normal, Bowel sounds: normal, Palpation: moderate abdominal tenderness, in the epigastric area, right upper quadrant and left upper quadrant, Liver: no appreciated palpable abnormalities, Hernia: not appreciated, 09:10 ECG was reviewed by the Attending Physician. [facility] Vital Signs: 08:09 BP 162 / 81; Pulse 109; Resp 18; Temp 97.8(TE); Pulse Ox 98% on R/A; Weight 90.72 kg; hb Height 5 ft. 10 in. ; Pain 7/10; 09:00 BP 142 / 90; Pulse 98; Resp 16; Pulse Ox 95% on R/A; db 10:00 BP 141 / 67; Pulse 89; Resp 16; Pulse Ox 95% ; db 11:42 BP 132 / 71; Pulse 88; Resp 16; Pulse Ox 95% on R/A; db 12:15 BP 128 / 68; Pulse 68; Resp 18; Pulse Ox 100% on R/A; kj2 13:15 BP 136 / 64; Pulse 91; Resp 20; Pulse Ox 100% on R/A; kj2 15:09 BP 146 / 64; Pulse 88; Resp 18; Pulse Ox 97% on R/A; kj2 08:09 Body Mass Index 28.70 (90.72 kg, 177.8 cm) hb 08:09 Pain Scale: Adult hb MDM: 07:54 Medical Screening Exam initiated [facility] 09:10 Differential diagnosis: Nonspecific abd pain, gastritis, cholecystitis, pancreatitis, [facility] appendicitis, diverticulitis, viral gastroenteritis, gastroenteritis, bowel obstruction, cholecystitis, Cholelithiasis, diverticulitis, gastritis, gastroesophageal reflux disease, non-specific abd pain, pancreatitis, Peptic Ulcer Disease, urinary tract infection. Data reviewed: vital signs, nurses notes, lab test result(s), EKG, radiologic studies, plain films. Consideration of Admission/Observation Escalation of care including admission/observation considered. I considered the following discharge prescriptions or medication management in the emergency department Medications were administered in the Emergency Department. See MAR. Independent interpretation of the following test(s) in the Emergency Department EKG: See my EKG interpretation above. Care significantly affected by the following chronic conditions: Diabetes, Hypertension. 10/25 07:56 Order name: Basic Metabolic Panel; Complete Time: 09:58 [facility] 10/25 07:56 Order name: CBC with Diff; Complete Time: 09:58 rahel 10/25 07:56 Order name: LFT's; Complete Time: 09:58 rahel 10/25 07:56 Order name: Magnesium; Complete Time: 09:58 [facility] 10/25 07:56 Order name: NT PRO-BNP; Complete Time: 09:58 rahel 10/25 07:56 Order name: PT-INR; Complete Time: 09:58 rahel 10/25 07:56 Order name: Troponin HS; Complete Time: 09:58 [facility] 10/25 07:56 Order name: Lipase; Complete Time: 09:58 rahel 10/25 07:56 Order name: Urinalysis w/ reflexes rahel 10/25 09:51 Order name: CBC Smear Scan; Complete Time: 09:58 EDMS 10/25 11:23 Order name: Urinalysis w/ reflexes EDMS 10/25 11:23 Order name: CBC with Automated Diff EDMS 10/25 11:23 Order name: CBC with Automated Diff EDMS 10/25 11:23 Order name: Comprehensive Metabolic Panel EDMS 10/25 11:23 Order name: Comprehensive Metabolic Panel EDMS 10/25 11:23 Order name: Magnesium EDMS 10/25 11:23 Order name: Magnesium EDMS 10/25 17:20 Order name: Glucose, Ancillary Testing EDMS 10/25 07:56 Order name: XRAY Chest (1 view); Complete Time: 09:58 [facility] 10/25 07:56 Order name: CT Abd/Pelvis - IV Contrast Only; Complete Time: 11:35 rahel 10/25 09:00 Order name: US Abdomen Limited; Complete Time: 11:35 [facility] 10/25 11:17 Order name: CONS Physician Consult EDTX 10/25 07:56 Order name: Cardiac monitoring; Complete Time: 09:11 rahel 10/25 07:56 Order name: EKG - Nurse/Tech; Complete Time: 09:10 rahel 10/25 07:56 Order name: IV Saline Lock; Complete Time: 09:00 rahel 10/25 07:56 Order name: Labs collected and sent; Complete Time: 09:01 [facility] 10/25 07:56 Order name: O2 Per Protocol; Complete Time: : rahel 10/25 07:56 Order name: O2 Sat Monitoring; Complete Time: : rahel EC:10 Rate is 95 beats/min. Rhythm is regular. QRS Midnight is Normal. DE interval is normal. QRS rahel interval is normal. QT interval is normal. No Q waves. T waves are Normal. No ST changes noted. Clinical impression: Normal ECG and No evidence of ischemia. Interpreted by me. Reviewed by me. Administered Medications: 08:58 Drug: Famotidine IVP 20 mg IVP once; dilute with 10 mL 0.9% NaCl; give over 2 minutes db Route: IVP; Site: right antecubital; 11:29 Follow up: Response: No adverse reaction db 08:58 Drug: NS 0.9% IV 1000 ml IV at 1000 ml once; to be given as a bolus over 60 minutes db Route: IV; Rate: 1000 ml; Site: right antecubital; 09:04 Drug: HYDROmorphone IVP 0.5 mg IVP once Route: IVP; Site: right antecubital; db 11:30 Follow up: Response: No adverse reaction db 09:05 Drug: Ondansetron IVP 4 mg IVP once; over 2 minutes Route: IVP; Site: right antecubital;db 11:33 Follow up: Response: No adverse reaction db 10:02 Drug: Piperacillin-Tazobactam IVPB 3.375 grams IVPB once over 60 mins; (mix in NS 100 db mL) Route: IVPB; Infused Over: 60 mins; Site: right antecubital; 11:30 Follow up: Response: No adverse reaction; IV Status: Completed infusion; IV Intake: db 100ml 13:43 Drug: HYDROmorphone IVP 0.5 mg IVP once Route: IVP; Site: right antecubital; kj2 16:24 Follow up: Response: No adverse reaction kj2 Disposition Summary: 10/25/24 10:34 Hospitalization Ordered Notes: Hospitalization Status: Inpatient Admission rahel Provider: Shorty Friedman cha Location: Telemetry/MedSurg (Inpatient) rahel Condition: Fair rahel Problem: new rahel Symptoms: have improved rahel Bed/Room Type: Standard [facility] Room Assignment: 231(10/25/24 16:18) bc6 Diagnosis - Abdominal pain, Generalized rahel - Vomiting rahel - Other cholelithiasis without obstruction rahel - Elevated white blood cell count rahel Forms: - Medication Reconciliation Form rahel - SBAR form rahel - Leadership Thank You Letter [facility] Signatures: Dispatcher [employer] EDDg Vasquez MD MD cha Baxter, Heather, RN RN Nay Moreno, RN RN Lelamartha Karuna [facility] Bhavya Mahmood, RN RN kj2 Corrections: (The following items were deleted from the chart) 07:56 07:56 BASIC METABOLIC PANEL+C.LAB.BRZ ordered. EDMS EDMS 07:56 07:56 CBC+H.LAB.BRZ ordered. EDMS EDMS 07:56 07:56 HEPATIC FUNCTION+C.LAB.BRZ ordered. EDMS EDMS 07:56 07:56 MAGNESIUM+C.LAB.BRZ ordered. EDMS EDMS 07:56 07:56 PROBNP+C.LAB.BRZ ordered. EDMS EDMS 07:56 07:56 PROTIME (+INR)+COAG.LAB.BRZ ordered. EDMS EDMS 07:56 07:56 Troponin High Sensitivity+C.LAB.BRZ ordered. EDMS EDMS 07:56 07:56 LIPASE+C.LAB.BRZ ordered. EDMS EDMS 07:56 07:56 Urinalysis+U.LAB.BRZ ordered. EDMS EDMS 07:56 07:56 Chest Single View+RAD.RAD.BRZ ordered. EDMS EDMS 07:57 07:57 Abdomen Pelvis W Con+CT.RAD.BRZ ordered. EDMS EDMS 09:01 09:01 Abdomen Limited+US.RAD.BRZ ordered. EDMS EDMS 11:19 11:01 Liver Only ordered. EDMS EDMS 16:18 10:34 rahel 6
--- NOTE | 2024-10-25 10:35 | ER ---
Nurse's Notes [facility] Name: Harrison Arriaza Age: 74 yrs Sex: Male : 1950 Arrival Date: 10/25/2024 Time: 07:46 Bed 15 Private MD: Diagnosis: Abdominal pain, Generalized;Vomiting;Other cholelithiasis without obstruction;Elevated white blood cell count Presentation: 10/25 08:09 Chief complaint: N/V and upper abdominal pain since last night. Not tolerating fluids. hb Coronavirus screen: At this time, the client does not indicate any symptoms associated with coronavirus-19. Ebola Screen: No symptoms or risks identified at this time. Initial Sepsis Screen: Does the patient meet any 2 criteria? No. Patient's initial sepsis screen is negative. Does the patient have a suspected source of infection? No. Patient's initial sepsis screen is negative. Risk Assessment: Do you want to hurt yourself or someone else? Patient reports no desire to harm self or others. Onset of symptoms was October 24, 2024. 08:09 Method Of Arrival: Ambulatory hb 08:09 Acuity: SHARAN 3 hb Historical: - Allergies: 08:10 No Known Allergies; hb - PMHx: 08:10 Diabetes - NIDDM; Hypertension; hb - PSHx: 08:10 back fusion (en); hb - Immunization history:: Adult Immunizations up to date. - Infectious Disease History:: Denies. - Social history:: Smoking status: Patient denies any tobacco usage or history of. - Family history:: not pertinent. Screenin:02 [facility] ED Fall Risk Assessment (Adult) History of falling in the last 3 months, db including since admission No falls in past 3 months (0 pts) Confusion or Disorientation No (0 pts) Intoxicated or Sedated No (0 pts) Impaired Gait No (0 pts) Mobility Assist Device Used No (0 pt) Altered Elimination No (0 pt) Score/Fall Risk Level 0 - 2 = Low Risk Oriented to surroundings, Maintained a safe environment. Abuse screen: Denies threats or abuse. Denies injuries from another. Nutritional screening: No deficits noted. Tuberculosis screening: No symptoms or risk factors identified. Assessment: 09:02 Reassessment: Patient appears in no apparent distress at this time. Patient and/or db family updated on plan of care and expected duration. Pain level reassessed. Patient is alert, oriented x 3, equal unlabored respirations, skin warm/dry/pink. General: Appears in no apparent distress. uncomfortable, Behavior is calm, cooperative. Pain: Complains of pain in abdomen. Neuro: Level of Consciousness is awake, alert, obeys commands, Oriented to person, place, time, situation. GI: Abdomen is Bowel sounds Abd is soft Abdomen is tender to palpation. 09:12 Reassessment: INSOLE ROUNDER AT PATIENT BEDSIDE. db 10:00 Reassessment: Patient appears in no apparent distress at this time. Patient and/or db family updated on plan of care and expected duration. Pain level reassessed. Patient is alert, oriented x 3, equal unlabored respirations, skin warm/dry/pink. 11:50 Reassessment: PT AMBULATORY TO RESTROOM. db 12:15 Reassessment: Patient appears in no apparent distress at this time. Patient and/or kj2 family updated on plan of care and expected duration. Pain level reassessed. Patient is alert, oriented x 3, equal unlabored respirations, skin warm/dry/pink. 13:15 Reassessment: Patient appears in no apparent distress at this time. Patient and/or kj2 family updated on plan of care and expected duration. Pain level reassessed. Patient is alert, oriented x 3, equal unlabored respirations, skin warm/dry/pink. 15:09 Reassessment: Patient appears in no apparent distress at this time. Patient and/or kj2 family updated on plan of care and expected duration. Pain level reassessed. Patient is alert, oriented x 3, equal unlabored respirations, skin warm/dry/pink. Vital Signs: 08:09 BP 162 / 81; Pulse 109; Resp 18; Temp 97.8(TE); Pulse Ox 98% on R/A; Weight 90.72 kg; hb Height 5 ft. 10 in. ; Pain 7/10; 09:00 BP 142 / 90; Pulse 98; Resp 16; Pulse Ox 95% on R/A; db 10:00 BP 141 / 67; Pulse 89; Resp 16; Pulse Ox 95% ; db 11:42 BP 132 / 71; Pulse 88; Resp 16; Pulse Ox 95% on R/A; db 12:15 BP 128 / 68; Pulse 68; Resp 18; Pulse Ox 100% on R/A; kj2 13:15 BP 136 / 64; Pulse 91; Resp 20; Pulse Ox 100% on R/A; kj2 15:09 BP 146 / 64; Pulse 88; Resp 18; Pulse Ox 97% on R/A; kj2 08:09 Body Mass Index 28.70 (90.72 kg, 177.8 cm) hb 08:09 Pain Scale: Adult hb ED Course: 07:51 Patient arrived in ED. al6 07:54 Dg Tenorio MD is Attending Physician. rahel 08:10 Triage completed. hb 08:10 Arm band placed on. hb 08:18 XRAY Chest (1 view) In Process Unspecified. EDMS 08:42 Nay Moreno, RN is Primary Nurse. db 08:57 Initial lab(s) drawn, by me, sent to lab. Inserted saline lock: 20 gauge in right db antecubital area, using aseptic technique. Blood collected. Flushed with 10 mL NS. 09:02 Patient has correct armband on for positive identification. Bed in low position. Call db light in reach. Side rails up X 1. Client placed on continuous cardiac and pulse oximetry monitoring. NIBP monitoring applied. desk monitor on. Pulse ox on. NIBP on. Pillow given. 09:30 US Abdomen Limited In Process Unspecified. EDMS 10:19 CT Abd/Pelvis - IV Contrast Only In Process Unspecified. EDMS 10:33 Shorty Friedman is Hospitalizing Provider. rahel 12:02 Urine collected:. hb 17:54 No provider procedures requiring assistance completed. Patient admitted, IV remains in kj2 place. 17:55 Provided Education on: safety, fall precaution. kj2 Administered Medications: 08:58 Drug: Famotidine IVP 20 mg IVP once; dilute with 10 mL 0.9% NaCl; give over 2 minutes db Route: IVP; Site: right antecubital; 11:29 Follow up: Response: No adverse reaction db 08:58 Drug: NS 0.9% IV 1000 ml IV at 1000 ml once; to be given as a bolus over 60 minutes db Route: IV; Rate: 1000 ml; Site: right antecubital; 09:04 Drug: HYDROmorphone IVP 0.5 mg IVP once Route: IVP; Site: right antecubital; db 11:30 Follow up: Response: No adverse reaction db 09:05 Drug: Ondansetron IVP 4 mg IVP once; over 2 minutes Route: IVP; Site: right antecubital;db 11:33 Follow up: Response: No adverse reaction db 10:02 Drug: Piperacillin-Tazobactam IVPB 3.375 grams IVPB once over 60 mins; (mix in NS 100 db mL) Route: IVPB; Infused Over: 60 mins; Site: right antecubital; 11:30 Follow up: Response: No adverse reaction; IV Status: Completed infusion; IV Intake: db 100ml 13:43 Drug: HYDROmorphone IVP 0.5 mg IVP once Route: IVP; Site: right antecubital; kj2 16:24 Follow up: Response: No adverse reaction kj2 Medication: 17:54 VIS not applicable for this client. kj2 Intake: 11:30 IV: 100ml; Total: 100ml. db Outcome: 10:34 Decision to Hospitalize by Provider. rahel 17:54 Admitted to Med/surg accompanied by tech, via wheelchair, kj2 17:54 Condition: stable 17:54 Instructed on the need for admit, 18:00 Patient left the ED. kj2 Signatures: Dispatcher [employer] EDDg Vasquez MD MD cha Baxter, Heather, RN RN Nay Acuna, JOSE G RN Bhavya Travis RN RN kj2 Katie [email or web address]
--- NOTE | 2024-10-25 10:55 | RAD REPORT ---
EXAM: Right upper quadrant ultrasound. CLINICAL HISTORY: Abdominal pain COMPARISON: None FINDINGS: 1.4 cm stone within the gallbladder fundus. Gallbladder wall not thickened. Biliary tree normal caliber IMPRESSION: Cholelithiasis without evidence of cholecystitis
--- NOTE | 2024-10-25 10:55 | RAD REPORT ---
EXAMINATION: CT ABDOMEN AND PELVIS WITH CONTRAST CLINICAL INDICATION: Abdominal pain TECHNIQUE: CT abdomen and pelvis was performed, after the administration of 100 cc Isovue-300.. Sagit flor and coronal reconstructions were obtained. One or more of the following dose reduction techniques were used: Automated exposure control, adjustment of the mA and kV according to patient si ze, and iterative reconstruction. Unless otherwise specified, incidental findings do not require dedicated imaging follow-up. [id number]. Oral contrast was not given which limits evaluation of bowel and appendix. COMPARISON: .None FINDINGS: Cholelithiasis. Gallbladder wall not thickened. Liver, spleen, pancreas, and adrenals unremarkable. Small renal cysts. Post surgical changes lumbar spine. Moderate inguinal hernias containing fat. Rectum distended with stool. Fluid within most of the small bowel which is upper limits normal caliber. No evidence of diverticulitis.. Small hiatal hernia. A few areas of subsegmental atelectasis right lo wer lobe. : IMPRESSION: Fluid within small bowel which is upper limits normal caliber may indicate an enteritis Cholelithiasis without evidence of cholecystitis
[2024-10-25] MEDS ORDERED: MORPHINE 4 MG/ML SYR IV PRN (11:16)
[2024-10-25] MEDS ORDERED: ONDANSETRON 4 MG/2 ML VIAL IV PRN (11:16)
[2024-10-25] MEDS: NA CHLORIDE 0.9% 1,000 ML IV SCH (12:00)
[2024-10-25 12:12] LABS: Specific Gravity > 1.030 (1.005-1.030); Sqamous Epithelial <5 /HPF (None Seen); Urine Bacteria None Seen /HPF (<20); Urine Bilirubin NEGATIVE (Negative); Urine Blood Negative (Negative); Urine Clarity Clear (Clear); Urine Color Light-Yellow (Yellow); Urine Culture Reflex Order NOT NEEDED; Urine Glucose 3+ (Negative); Urine Ketones 1+ (Negative); Urine Microscopic Reflex YN ORDER UMIC; Urine Mucus Slight /HPF (None Seen); Urine Nitrite NEGATIVE (Negative); Urine Protein TRACE (Negative); Urine RBC None Seen /HPF (None Seen); Urine Urobilinogen Normal (Normal); Urine WBC <5 /HPF (<5); Urine pH 5.5 (5.0-7.0)
[2024-10-25] MEDS ORDERED: CODEINE 30MG/APAP 300MG TAB PO PRN (15:21)
[2024-10-25 16:55] VITALS: BMI 28.7
--- NOTE | 2024-10-25 17:16 | P.HP ---
Certification for Inpatient Patient admitted to: Observation Practitioner: I am a practitioner with admitting privileges, knowledge of patient current condition, hospital course, and medical plan of care. Services: Services provided to patient in accordance with Admission requirements found in Title 42 Section 412.3 of the Code of Federal Regulations Patient History Date of Service: 10/25/24 Reason for admission: Saturday abdominal pain History of Present Illness: 74-year-old male with a past medical history of hypertension, [id number]-jpkygverk diabetes, hyperlipidemia, presents to the emergency room for abdominal pain. He reports eating a licorice [id number], He said it looked really bad and he ate it anyway. He presents to the emergency room with severe abdominal pain nausea vomiting that started this morning. He denies chest pain, shortness of breath, fever, recent infection. He reports symptoms improved with as needed analgesics. ER evaluation shows elevated white count at 18, he was treated with IV fluids, IV antibiotics. Surgery was consulted to eval for abnormal CT of cholelithiasis. Patient denies right upper quadrant tenderness. Plan to admit for abdominal pain, cholelithiasis, gastroenteritis with surgery to consult. Allergies No Known Allergies Allergy (Verified 09/12/23 14:10) Home Medications: Amlodipine Besylate 10 mg PO DAILY 02/17/22 Cyanocobalamin (Vitamin B-12) [Vitamin B-12] 1,000 mcg PO DAILY 02/17/22 Glimepiride 4 mg PO BID 02/17/22 LORazepam [Lorazepam] 2 mg PO BEDTIME 02/17/22 Lisinopril/Hydrochlorothiazide [Lisinopril-Hctz 20-25 mg Tab] 1 tab PO DAILY 02/17/22 Multivitamin 1 each PO DAILY 02/17/22 Pioglitazone HCl 1 tab PO DAILY 02/17/22 Red Yeast Rice 600 mg PO DAILY 02/17/22 Vitamin B Complex [Vitamin B Complex*] 1 cap PO DAILY 02/17/22 Tramadol HCl [Ultram] 50 mg PO Q8HP PRN 09/11/23 - Past Medical/Surgical History Has patient received pneumonia vaccine in the past: Yes Diabetic: Yes -: HTN -: NIDDM -: L4/L5 surgery - Social History Smoking Status: Never smoker Alcohol use: Yes CD- Drugs: No Caffeine use: No Review of Systems 10-point ROS is otherwise unremarkable Physical Examination - Vital Signs Temperature: 97.8 F Blood Pressure: 133/81 Pulse: 80 Respirations: 18 Pulse Ox (%): 97 - Physical Exam General: Alert, Oriented x3, Mild distress HEENT: Atraumatic, Normocephalic, PERRLA Neck: 2+ carotid pulse no bruit, JVD not distended Respiratory: Clear to auscultation bilaterally, Normal air movement Cardiovascular: Normal pulses, Regular rate/rhythm, Normal S1 S2 Capillary refill: >2 Seconds Gastrointestinal: Other (Epigastric tenderness) Musculoskeletal: No clubbing, No swelling Integumentary: No breakdown, No significant lesion Neurological: Normal gait, Normal speech, Normal strength at 5/5 x4 extr - Studies Laboratory Data (last 24 hrs) 10/25/24 10/25/24 10/25/24 08:57 08:57 08:57 WBC 18.00 H Hgb 16.9 Hct 49.8 H Plt Count 241 PT 11.3 INR 0.99 Sodium 132 L Potassium 4.5 BUN 24 H Creatinine 1.30 Glucose 247 H Magnesium 2.0 Total Bilirubin 1.7 H AST 28 ALT 33 Alkaline Phosphatase 109 Lipase 23 Assessment and Plan - Problems (Diagnosis) (1) Gastroenteritis Current Visit: Yes Status: Acute (2) Cholelithiasis Current Visit: Yes Status: Acute (3) Nausea & vomiting Current Visit: Yes Status: Acute (4) DM2 (diabetes mellitus, type 2) Current Visit: No Status: Acute Qualifiers: Diabetes mellitus usp insulin use: without continuous churn buttermaker use Diabetes mellitus complication status: without complication Qualified Code(s): E11.9 - Type 2 diabetes mellitus without complications (5) HTN (hypertension) Current Visit: No Status: Acute Qualifiers: Hypertension type: unspecified Qualified Code(s): I10 - Essential (primary) hypertension - Plan Admit to [facility] Surgery to consult to eval for Cholelithiasis IV fluids, IV antibiotics, as needed analgesics as needed antiemetic Advance diet as tolerated per surgery recommended Leukocytosis, trend WBCs, Full code DVT SCDs Diet advance to clear liquid Discharge Plan: Home - Advance Directives Does patient have a Living Will: Yes Does patient have a Durable POA for Healthcare: No - Code Status/Comfort Care Code Status: Full Code Critical Care: No Time Spent Managing Pts Care (In Minutes): 55
[2024-10-25] MEDS: PIPER TAZO 2.25 GM in NA CHLORIDE 0.9% 50 ML IV SCH (18:12)
[2024-10-26 06:58] LABS: Absolute Eosinophils 0.1 K/uL (0-0.5); Absolute Lymphocytes (CBC) 1.9 K/uL (0.7-4.9); Absolute Monocytes 0.9 K/uL (0.1-1.3); Basophils % 0.4 % (0-1.3); Eosinophils % 1.5 % (0-4.4); Hematocrit 41.7 % (39.6-49.0); Hemoglobin 14.6 g/dL (13.6-17.9); Lymphocytes % 21.3 % (15.3-44.8); MCH 33.6 pg (27.0-35.0); MCHC 34.9 g/dL (32.0-36.0); MCV 96.3 fL (80-100); MPV 9.7 fL (7.6-11.3); Monocytes % 10.3 % (3.3-12.3); Neutrophils % 66.5 % (41.7-73.7); Nucleated Red Blood Cells % 0.1 % (0-0); Platelets 206 thou/uL (152-406); RBC Red Blood Cell Count 4.33 M/uL (4.33-5.43); Red Cell Distribution Width 13.5 % (12.1-15.2)
[2024-10-26 07:14] LABS: Anion Gap 6.6 mEq/L (5.0-15.0); Bilirubin Total 1.5 mg/dL (0.2-1.0); Magnesium 1.8 mg/dL (1.6-2.4); Potassium 3.6 mEq/L (3.5-5.1)
[2024-10-26] MEDS: POTASSIUM CL SA 10 MEQ TAB PO ONE (08:08)
[2024-10-26 08:20] VITALS: O2SAT 96
[2024-10-26] MEDS: ACETAMINOPHEN 325 MG TABLET PO PRN (11:50)
[2024-10-26 12:55] VITALS: BP 127/66; TEMP 98
--- NOTE | 2024-10-27 11:06 | EKG ---
Test Date: 2024-10-25 Test Time: 09:08:48 Lead Inspector: MAIOC MEASUREMENT RESULTS: Intervals: Rate: 95 NE: 150 QRSD: 84 QT: 348 QTc: 437 Billings: P: 75 NE: 150 QRS: 92 T: 75 INTERPRETIVE STATEMENTS: Normal sinus rhythm Rightward axis Borderline ECG Compared to ECG 07/24/2024 11:56:30 Right-axis deviation now present Electronically Signed On 10-27-24 10:59:43 CDT by Malik Nails
== END 2024-10-26 16:42 | disposition home or self-care (01) ==
LOC: ER 07:46 → ERHOLD 11:13 → 2ND 16:19
PROVIDERS: ADMIT Hospitalist; ATTEND Hospitalist
DX: K80.20 Calculus of gallbladder without cholecystitis without obstruction (principal); K52.9 Noninfective gastroenteritis and colitis, unspecified; R11.2 Nausea with vomiting, unspecified; E11.9 Type 2 diabetes mellitus without complications; I10 Essential (primary) hypertension
CPT/HCPCS: 96365; 93005; 85025 ×2; 81001; 80048; 36415; 83735 ×2; 85610; 82947 ×4; 80076; 84484; 83690; 80053; 83880; 74177; 71045; 76705; 96375; 99285; Q9967; J2543 ×4; J1171 ×2; J2405; J7030 ×2